=== PATIENT | female | born 1945 | race Caucasian/White ===

== ENCOUNTER 2019-10-31 13:16 | Outpatient (CLI) | payer MEDICARE, SELFPAY ==
--- NOTE | 2019-10-31 13:32 | CT_ITS ---
WS: [id number] CT ABDOMEN AND PELVIS WITH CONTRAST HISTORY: ABDOMINAL PAIN, LEFT UPPER QUADRANT. History of cholecystectomy, hysterectomy and appendecto my. TECHNIQUE: Imaging performed of the abdomen and pelvis with IV contrast. Single phase imaging of the abdomen. Coronal and sagittal reformats are submitted. All CT scans at [facility] use at least one of these dose optimization techniques: automated exposure control; mA and/or kV adjustment per patient size (includes targeted exams where dose is matched to clinical indication); or iterativ e reconstruction. IV CONTRAST: Omnipaque 300; 95 mL IV. Oral contrast: Yes. DLP: 1126.37 mGycm COMPARISON: 11/30/2015 Lower thorax: Lung bases are clear. Heart is normal size. Small hiatal hernia. Liver/biliary system: Surface of the liver is slightly nodular and irregular consistent with cirrhosi s. No mass or bile duct dilatation. There are a few scattered benign granulomata. Gallbladder: Prior cholecystectomy. Pancreas: Normal. Spleen: Normal size spleen with granulomata. Adrenal glands: Normal. Right kidney: Numerous cysts scattered throughout the kidney. The largest in the lower pole measures 9 mm. No solid mass or obstruction. Left kidney: Normal. Aorta: Mild atherosclerosis. No aneurysm. Lymphadenopathy: None. Free fluid: None. GI tract: Prior appendectomy. No GI tract obstruction. There are a few scattered diverticula througho ut the distal colon with overlapping tortuous loops. No definite acute diverticulitis. Abdominal wall: Unremarkable abdominal wall. No hernia. Pelvis: Prior hysterectomy. Normal urinary bladder. Bones: Increase in lumbar lordosis. CT/CT abdomen pelvis w con* [id number] IMPRESSION: 1. Distal colon diverticulosis without acute diverticulitis. 2. No acute abdominal or pelvic findings. 3. Prior cholecystectomy, appendectomy and hysterectomy. 4. Cirrhosis. 5. Moderate hiatal hernia.
[2019-10-31] MEDS: iohexol 300 mg/mL 50 mL Btl PO (14:23)
[2019-10-31] MEDS: iohexol 300 mg/mL 100 mL Btl IV (15:11)
== END 2019-10-31 13:17 | disposition home or self-care (01) ==
LOC: RADWPI 13:22
PROVIDERS: Family Provider Family Medicine; PCP Family Medicine; Visit Provider Family Medicine
DX: K57.30 Diverticulosis of large intestine without perforation or abscess without bleeding (principal); K74.60 Unspecified cirrhosis of liver; K44.9 Diaphragmatic hernia without obstruction or gangrene; R10.12 Left upper quadrant pain; Z90.49 Acquired absence of other specified parts of digestive tract; Z90.710 Acquired absence of both cervix and uterus
CPT/HCPCS: 74177; Q9967

== ENCOUNTER 2020-02-02 09:30 | Outpatient (CLI) | payer MEDICARE, SELFPAY ==
--- NOTE | 2020-02-02 09:35 | USCV_ITS ---
Daniela Cornelius Age: 75 Gender: F : 1945 Exam Date: 02/02/2020 10:03 Ordering Phys: Evan Santana MD ([email or web address]) Technologist: Ana Ludwig [place] [facility] [place] Indication: LV FUNCTION BP: 138 / 81 HR: 66 Rhythm: Sinus Technical Quality: Adequate MEASUREMENTS (Male / Female) Normal Values 2D ECHO LV Diastolic Diameter PLAX 2.5 cm 4.2 - 5.9 / 3.9 - 5.3 cm LV Systolic Diameter PLAX 2.0 cm LV Chamber Size 2.2 cm IVS Diastolic Thickness 1.1 cm 0.6 - 1.0 / 0.6 - 0.9 cm IVS Systolic Thickness 1.0 cm LVPW Diastolic Thickness 1.8 cm 0.6 - 1.0 / 0.6 - 0.9 cm LVPW Systolic Thickness 1.7 cm RV Chamber Size 2.4 cm LVOT Diameter 2.0 cm LV Ejection Fraction 2D Teich 45.7 % LV Ejection Fraction MOD 2C 56.3 % LV Ejection Fraction 2C AL 57.6 % LA Diameter 4.0 cm LA Width 2.8 cm LA Height 3.9 cm RA Width 2.4 cm RA Height 3.6 cm Aorta at Sinotubular Diameter 2.2 cm M-MODE LV Diastolic Diameter MM 4.8 cm 4.2 - 5.9 / 3.9 - 5.3 cm LV Systolic Diameter MM 3.4 cm LV Ejection Fraction MM Teich 57.9 % IVS Diastolic Thickness MM 0.8 cm 0.6 - 1.0 / 0.6 - 0.9 cm IVS Systolic Thickness MM 1.0 cm LVPW Diastolic Thickness MM 1.0 cm 0.6 - 1.0 / 0.6 - 0.9 cm LVPW Systolic Thickness MM 1.0 cm Aortic Annulus Diameter 2.8 cm LA Ao Ratio MM 1.5 MV E Point Septal Separation 0.4 cm DOPPLER AV Peak Velocity 108.0 cm/s LVOT Peak Velocity 97.0 cm/s AV Area Cont Eq vti 3.5 cm squared AV Area Cont Eq pk 3.0 cm squared MV Area PHT 4.5 cm squared Mitral E to A Ratio 1.0 MV E' Velocity 14.0 cm/s Mitral E to MV E' Ratio 7.4 Mitral E to LV E' Lateral Ratio 5.7 Mitral E to LV E' Septal Ratio 10.4 TR Peak Velocity 240.1 cm/s TR Peak Gradient 23.1 mmHg TR Mean Velocity 178.8 cm/s TR Mean Gradient 13.5 mmHg TR Velocity Time Integral 83.4 cm TV Peak E Velocity 70.0 cm/s Right Atrial Pressure 3.0 mmHg Pulmonary Artery Systolic Pressu 26.1 mmHg PV Peak Velocity 49.0 cm/s RV Acceleration Time 0.2 s RV Ejection Time 0.4 s RV AcT/ET 0.5 FINDINGS Left Ventricle Normal left ventricular size, systolic function and wall thickness with no regional wall motion abnormalities. Normal diastolic filling pattern. Left ventricular ejection fraction is estimated at 57 %. Right Ventricle The right ventricle is normal in size and function. Right Atrium The right atrium is normal in size. Left Atrium The left atrium is normal in size. Mitral Valve Moderately thickened mitral valve. No mitral valve stenosis. Moderate mitral annular calcification. No mitral valve regurgitation. Aortic Valve Structurally normal aortic valve without significant sclerosis or stenosis. There is no aortic regurgitation. Tricuspid Valve Structurally normal tricuspid valve without significant stenosis or regurgitation. Pulmonary artery systolic pressure is normal. Pulmonic Valve Structurally normal pulmonic valve without significant stenosis. There is no pulmonic regurgitation. Pericardium Normal pericardium without effusion. Aorta Normal ascending aorta dimension. CONCLUSIONS 1-Normal left ventricular size, systolic function and wall thickness with no regional wall motion abnormalities. Normal diastolic filling pattern. Left ventricular ejection fraction is estimated at 57 %. 2-There is no pericardial effusion. 3-No significant valve abnormalities. 4-Pulmonary artery systolic pressure is within normal limits. 5-Right atrial pressure is around 5 mm of mercury. 6-There are no prior echocardiogram studies to compare. Evan Santana MD (Electronically Signed) Final Date: 02 February 2020 18:03 S
[2020-02-02 09:41] VITALS: BMI 30.2
--- NOTE | 2020-02-02 09:43 | ECG_ITS ---
NAME OF STUDY: LEXISCAN SESTAMIBI STRESS TEST INDICATION: Chest Pain, Shortness of Breath NOTE: Please note that this is the electrocardiogram portion of the Lexiscan/Sestamibi stress test. The perfusion scan will be documented separately. DATA: Baseline heart rate was 66 beats per minute. Baseline blood pressure was 183/78 millimeters of mercury. Target heart rate was 143. Maximum heart rate achieved was 86. which was 60 % of the predicted target heart rate. Maximum blood pressure was 183/78 millimeters of mercury. The reason for ending the test was completion of the protocol. The patient did not experience any symptoms. ELECTROCARDIOGRAM: BASELINE: Sinus rhythm. Normal axis. Otherwise, no ST-T changes suggestive of ischemia noted. No arrhythmia noted. EXERCISE: After Lexiscan injection, no ST-T changes suggestive of ischemic noted. No arrhythmia noted. 1. EKG not suggestive of ischemia 2. Lexiscan injection unremarkable. 3. Perfusion scan will be documented separately. Electronically Signed On 02-03-2020 18:19:15 CDT by Evan Santana M.D. [id number]
--- NOTE | 2020-02-02 09:43 | NMCV_ITS ---
NM juwan perf SPECT r/s* [id number] Daniela Corneluis Age: 75 Gender: F : 1945 Exam Date: 02/02/2020 10:34 Ordering Phys: Evan Santana MD ([email or web address]) Technologist: LÁZARO Granger Exam Location: [facility] Indications: SHORTNESS OF BREATH STRESS TEST Please [facility] IMAGE PROTOCOL Rest/Stress 1 Lexiscan Day Radiopharmaceutical Dose (mCi) Administration Site Administered by Rest: Tc-99m 10.8 IV LÁZARO Garcia Sestamibi Stress:Tc-99m 31.8 IV LÁZARO Garcia Sestamibi Rest: 02-Feb-2020 60 Discovery 630 Stress: 02-Feb-2020 30 Discovery 630 0.4mg Lexiscan. Images obtained in supine and prone position. SPECT RESULTS Technical Quality: Excellent Raw Data Analysis: Normal Image Corrections: No attenuation or motion correction applied Summed Stress Score: 0 Summed Rest Score: 5 Summed Difference Score: 0 PERFUSION FINDINGS FUNCTIONAL RESULTS (calculated via Gated SPECT) Stress Image LV EF (%): 82 Stress EDV (mL):55 TID: 0.88 Stress ESV (mL):10 Rest Image LV EF (%): 84 FUNCTIONAL FINDINGS: There is normal left ventricular systolic function. IMPRESSIONS Mid to distal anterior and apical wall perfusion defect at rest was noted which showed improvement on the stress images suggestive of artifact. This study is negative for ischemia. EKG segment will be documented separately. Evan Santana MD (Electronically Signed) Final Date: 02 February 2020 17:15 S
--- NOTE | 2020-02-02 11:37 | SUR.PREOP ---
Patient reports no pain or discomfort prior to the start of the procedure.
[2020-02-02] MEDS: regadenoson 0.4 Mg/5 ml Syringe IVP (11:49)
[2020-02-02 12:07] VITALS: BP 144/69; PULSE 78
== END 2020-02-02 09:31 | disposition home or self-care (01) ==
LOC: CDL 09:32
PROVIDERS: Family Provider Family Medicine; PCP Family Medicine; Visit Provider Internal Medicine Cardiovascular Disease
DX: R06.02 Shortness of breath (principal); R07.9 Chest pain, unspecified
CPT/HCPCS: 78452; 93017; 93306; A9500; J2785

== ENCOUNTER 2020-10-04 10:57 | Outpatient (CLI) | payer MEDICARE, SELFPAY ==
--- NOTE | 2020-10-04 11:11 | XR_ITS ---
WS: [id number] Right shoulder, 2 views, 10/04/2020 Clinical Data: SHOULDER PAIN, RIGHT Comparison: None. Findings: No fractures or dislocations are seen. The AC joint is normal. The adjacent right clavicle, right sca pula and ribs are normal. The soft tissues are unremarkable. There is osteoarthritic narrowing of the right shoulder joint with sclerosis of the glenoid and adjac ent humeral head. There is a spur of the right lesser tuberosity. XR/XR shoulder RT min 2V* [id number] Impression: Osteoarthritis of the right shoulder joint.
== END 2020-10-04 10:58 | disposition home or self-care (01) ==
LOC: RAD 11:02
PROVIDERS: PCP Family Medicine; Visit Provider Family Medicine
DX: M19.011 Primary osteoarthritis, right shoulder (principal)
CPT/HCPCS: 73030

== ENCOUNTER 2020-10-21 14:20 | Outpatient (CLI) | payer MEDICARE, SELFPAY ==
--- NOTE | 2020-10-21 14:27 | MR_ITS ---
WS: [id number] MRA HEAD TECHNIQUE: Axial 3-D TOF images obtained with axial images and axial, sagittal, and coronal 2-D refor matted images. CLINICAL INFORMATION: TIA COMPARISON: None. FINDINGS: Distal vertebral arteries are patent. Basilar artery is patent. Normal vascularity to the INFORMATION TECHNOLOGY ARCHITECT territo ry bilaterally. Both ICAs are patent at the skull base. Normal vascularity to the SARY and MCA territories bilaterally . No evidence of high-grade proximal stenosis or aneurysm. MR/MR angio head wo con [id number] IMPRESSION: Unremarkable intracranial MRA. No flow-limiting stenosis.
--- NOTE | 2020-10-21 14:27 | MR_ITS ---
WS: [id number] MRI HEAD WITHOUT CONTRAST TECHNIQUE: Sagittal T1, T2 axial, T2 axial FLAIR, axial and coronal T1 images, axial susceptibility w eighted imaging, axial diffusion weighted images, and coronal T2 images were obtained. CLINICAL INFORMATION: TIA COMPARISON: None. FINDINGS: No evidence of restricted diffusion to suggest acute ischemia. Ventricular system and basal cisterns are patent. No suspicious intracranial signal abnormalities. Minimal small vessel changes. Moderate p arenchymal volume loss. More prominent in the parietal lobes. No hemosiderin on the susceptibility we ighted images. Normal posterior fossa. Normal vascular flow voids at the skull base. No extra axial fluid collection s. Paranasal sinuses and mastoid air cells are well aerated. Normal optic chiasm and pituitary infundibulum. Normal cavernous sinuses and Meckel's cave. Mild symm etric atrophy involving the temporal lobes and hippocampal formations. A few left intraparotid lymph nodes. MR/MR head wo con* [id number] IMPRESSION: 1. No evidence of restricted diffusion to suggest acute ischemia. 2. Minimal small vessel changes. Moderate parenchymal volume loss more promine nt in the parietal lobes. 3. Mild to moderate symmetric atrophy involving the temporal lobes and hippoca mpal formations. 4. No hemosiderin on the susceptibility weighted images. 5. No other significant findings.
== END 2020-10-21 14:21 | disposition home or self-care (01) ==
LOC: RADSHAW 14:24
PROVIDERS: PCP Family Medicine; Visit Provider Family Medicine
DX: G45.9 Transient cerebral ischemic attack, unspecified (principal); G31.9 Degenerative disease of nervous system, unspecified
CPT/HCPCS: 70544; 70551

== ENCOUNTER 2020-11-01 12:42 | Outpatient (CLI) | payer MEDICARE, SELFPAY ==
--- NOTE | 2020-11-01 12:49 | USCV_ITS ---
Daniela Cornelius Age: 75 Gender: F : 1945 Exam Date: 11/01/2020 12:56 Ordering Phys: Omega Woods MD Technologist: Bethany Flynn [place]am [place] [facility] [place] Indication: TIA Risk Factors: Previous Vascular Surgery: Right Brachial BP: / Left Brachial BP: / Right Left Velocity (cm/s) Spectral Plaque Velocity (cm/s) Spectral Plaque Syst/Diast Broadening Syst/Diast Broadening 116.90/13.20 Prox CCA 89.10 / 16.90 81.20/ 14.20 Mid CCA 71.50 / 13.20 73.50/ 12.00 Distal CCA 74.60 / 14.00 64.90/ 11.50 Prox ICA 93.10 / 22.20 75.40/ 13.60 Mid ICA 70.60 / 23.80 67.90/ 19.00 Distal ICA 74.30 / 24.80 84.60 ECA 69.40 0.64 ICA/CCA 1.05 Antegrade Vertebral Antegrade 29.60/ 9.90 cm/s 47.40/ 9.30 cm/s Tri Subclavian Tri 180.2 98.60 0 FINDINGS Comparison: none available. No significant elevation of systolic or diastolic velocities. Waveforms are normal. Mild atherosclerotic plaque at the bifurcations. CONCLUSIONS Bilateral ICA stenosis less than 50%. Mild carotid atherosclerosis. Dr. Jeaneth Carmichael DO (Electronically Signed) Final Date: 01 November 2020 13:52 S
== END 2020-11-01 12:43 | disposition home or self-care (01) ==
LOC: RAD 12:45
PROVIDERS: PCP Family Medicine; Visit Provider Family Medicine
DX: G45.9 Transient cerebral ischemic attack, unspecified (principal)
CPT/HCPCS: 93880

== ENCOUNTER 2021-04-17 13:44 | Outpatient (CLI) | payer MEDICARE, SELFPAY ==
--- NOTE | 2021-04-17 14:00 | XR_ITS ---
WS: [id number] Left knee, 3 views, 04/17/2021 Clinical Data: LEFT KNEE PAIN Comparison: None. Findings: No fractures or dislocations are seen. There is medial joint narrowing and spurring of the medial tib ial plateau and medial femoral condyle. There is minimal spurring of the lateral tibial plateau. Ther e is minimal spurring of the posterior patella.. The patella is intact. The soft tissues are unremark able. XR/XR knee LT 3V* [id number] Impression: Minimal osteoarthritis of the left knee involving all 3 joint compartments Kellgren-Dash Classification: grade 2 (minimal): definite osteophytes and p ossible joint space narrowing
--- NOTE | 2021-04-17 14:14 | XR_ITS ---
WS: [id number] Right knee, 3 views, 04/17/2021 Clinical Data: RIGHT KNEE PAIN Comparison: None. Findings: There is medial joint compartment narrowing with spurring of the medial femoral condyle. There are sp urs of the lateral femoral condyle and lateral tibial plateau. The posterior right patella shows spur ring. There are no fractures or dislocations. The soft tissues are normal. XR/XR knee RT 3V* [id number] Impression: Minimal tricompartment osteoarthritic narrowing of the right knee. Kellgren-Dash Classification: grade 2 (minimal): definite osteophytes and p ossible joint space narrowing
== END 2021-04-17 13:45 | disposition home or self-care (01) ==
PROVIDERS: PCP Family Medicine; Visit Provider Family Medicine
DX: M25.562 Pain in left knee (principal)
CPT/HCPCS: 73562

== ENCOUNTER → 2022-03-05 12:01 | Outpatient (BNVA) | payer MEDICARE, SELFPAY | PROVIDERS: PCP Family Medicine; Visit Provider Internal Medicine Cardiovascular Disease | DX: I25.10 Atherosclerotic heart disease of native coronary artery without angina pectoris (principal); R06.02 Shortness of breath; R07.9 Chest pain, unspecified; I10 Essential (primary) hypertension | CPT/HCPCS: 99213; 99214 ==

== ENCOUNTER → 2022-03-24 10:37 | Outpatient (BNVA) | payer MEDICARE, SELFPAY | PROVIDERS: PCP Family Medicine; Visit Provider Family Medicine | DX: I10 Essential (primary) hypertension (principal); I25.10 Atherosclerotic heart disease of native coronary artery without angina pectoris; R06.02 Shortness of breath; R07.9 Chest pain, unspecified | CPT/HCPCS: 80053; 80061; 83036; 84439; 84443; 85025 ==

== ENCOUNTER 2022-03-25 13:56 | Outpatient (CLI) | payer MEDICARE, SELFPAY ==
--- NOTE | 2022-03-25 14:05 | MM_ITS ---
WS: [id number] BILATERAL 3D TOMOSYNTHESIS DIGITAL SCREENING MAMMOGRAPHY WITH CAD CLINICAL INFORMATION: SCREENING HISTORY: Screening mammogram. No current complaints. COMPARISON: February 20, 2021 TECHNIQUE: Bilateral CC and MLO views. FINDINGS: Scattered fibroglandular densities bilaterally. Incidental punctate and lucent centered calcification s. Vascular calcifications. Biopsy clip RIGHT breast. No suspicious focal mass, asymmetry, calcificat ions, or architectural distortion. No evidence of malignancy. MM/[place] [id number] IMPRESSION: BI-RADS: 2-Benign FOLLOW UP: 1 Year Follow-up Recommend return to annual screening mammography.
== END 2022-03-25 13:57 | disposition home or self-care (01) ==
PROVIDERS: PCP Family Medicine; Visit Provider Family Medicine
DX: Z12.31 Encounter for screening mammogram for malignant neoplasm of breast (principal)
CPT/HCPCS: 77063; 77067

== ENCOUNTER 2022-04-14 13:04 | Outpatient (RCR) | payer MEDICARE, SELFPAY | END 2022-04-29 23:59 | disposition home or self-care (01) | LOC: SPT 13:04 | PROVIDERS: PCP Family Medicine; Referring Provider Family Medicine; Visit Provider Family Medicine | DX: M25.511 Pain in right shoulder (principal) | CPT/HCPCS: 95992; 97162 ==

== ENCOUNTER 2022-05-14 06:00 | Outpatient (RCR) | payer MEDICARE, SELFPAY | END 2022-05-29 23:59 | disposition home or self-care (01) | LOC: SPT 06:00 | PROVIDERS: PCP Family Medicine; Visit Provider Family Medicine | DX: M25.511 Pain in right shoulder (principal) | CPT/HCPCS: 97110; 97140; 97161 ==

== ENCOUNTER 2022-05-30 06:00 | Outpatient (RCR) | payer MEDICARE, SELFPAY | END 2022-06-29 23:59 | disposition home or self-care (01) | LOC: SPT 06:00 | PROVIDERS: PCP Family Medicine; Visit Provider Family Medicine | DX: M25.511 Pain in right shoulder (principal) | CPT/HCPCS: 97110; 97140 ==

== ENCOUNTER 2022-06-30 06:00 | Outpatient (RCR) | payer MEDICARE, SELFPAY | END 2022-07-29 23:59 | disposition home or self-care (01) | LOC: SPT 06:00 | PROVIDERS: PCP Family Medicine; Visit Provider Family Medicine | DX: M25.511 Pain in right shoulder (principal) | CPT/HCPCS: 97110 ==

== ENCOUNTER 2022-07-22 10:21 | Inpatient (IN) | payer MEDICARE, SELFPAY ==
[2022-07-22] VITALS (28 sets, daily range): BP systolic 91–151; BP diastolic 49–84; PULSE 77–107; RESP 15–32; TEMP 36.4–37.2; O2SAT 91–99; BMI 28.3
--- NOTE | 2022-07-22 10:40 | ECG_ITS ---
[facility] Test Date: 2022-07-22 Pat Name: Daniela Cornelius Department: Room: Gender: Female Convention Services Manager: : 1945 Requested By: Arun Manuel Order Number: [id number] Patricia MD: Bertrand Bennett M.D. Measurements Intervals [place] Rate: 77 P: 54 [place]: 172 QRS: -12 QRSD: 97 T: 38 QT: 386 QTc: 439 Interpretive Statements SINUS RHYTHM SEPTAL MYOCARDIAL INFARCTION , PROBABLY OLD [40+ ms Q WAVE IN V1/V2] Compared to ECG 11/08/2015 18:01:13 Myocardial infarct finding now present Electronically Signed On 07-23-2022 12:32:43 DIAMOND GRINDER by Bertrand Bennett M.D. [id number]
--- NOTE | 2022-07-22 10:44 | XRR_ITS ---
PROCEDURE INFORMATION: Exam: XR Chest Exam date and time: 07/22/2022 11:54 AM Age: 77 years old Clinical indication: Cough and dyspnea; Patient HX: Fainting episodes; Additional info: Dyspnea/cough TECHNIQUE: Imaging protocol: Radiologic exam of the chest. Views: 1 view. COMPARISON: CR XR chest 1V [id number] 11/08/2015 6:48 PM FINDINGS: Lungs: Unremarkable. No consolidation. Pleural spaces: Unremarkable. No pleural effusion. No pneumothorax. Heart/Mediastinum: Unremarkable. No cardiomegaly. Bones/joints: Unremarkable. XR/XR chest 1V portable [id number] IMPRESSION: No acute findings.
[2022-07-22 11:03] LABS: Hematocrit 37.4 % (37.0-47.0); Hemoglobin 12.9 g/dL (11.5-15.3); Mean Corpuscular HGB Conc 34.5 g/dL (30.0-36.0); Mean Corpuscular Hemoglobin 31.9 pg (28.0-34.0); Mean Corpuscular Volume 92.6 fl (81-99); Mean Platelet Volume 10.6 fL (7.4-10.4); Platelet Count 127 10^3/cmm (130-400); Red Blood Count 4.04 10^6/uL (4.1-5.3); Red Cell Distribution Width 13.9 % (12.1-15.1)
--- NOTE | 2022-07-22 11:12 | W.ED.GENADLT ---
HPI - General Adult General: Chief complaint: General Medical Stated complaint: low BP Time Seen by Provider: 07/22/22 10:44 Source: patient Mode of arrival: ambulatory History of Present Illness: 77-year-old female presents emergency room patient relates having a near syncopal episode yesterday she got very lethargic and weak she took an isosorbide mononitrate that seem to have resolved that she never really had any chest pain she has had some shortness of breath she also complaining of some right hip pain but has been chronic she has not fallen recently and she has been ambulating on it. She denies any fever sweats or chills her blood pressure was low when she went to her doctor's office today and she was directed to the emergency room. [facility] ED PFSH: Medical History (Updated 07/22/22 @ 14:11 by Omega Chao MD) CAD (coronary artery disease) Chest pain HTN (hypertension) Hypothyroid Shortness of breath Surgical History History of bladder repair surgery Bladder repair in 2000, sling in 2002 History of cholecystectomy History of partial hysterectomy Vaginal Hx of dilation and curettage Hx of eye surgery stent placement Family History Mother Pleural effusion Family/Other Heart problem Other Hx of CABG Social History Smoking and tobacco status: never smoked Alcohol intake: never Substance/Drug Use: never Course Vital Signs: Vital signs: Vital Signs Temperature 97.6 F 07/22/22 10:25 Pulse Rate 106 H 07/22/22 13:00 Respiratory Rate 27 H 07/22/22 13:00 Blood Pressure 123/72 07/22/22 14:00 Pulse Oximetry 91 07/22/22 14:00 Oxygen Delivery Me thod 07/22/22 11:30 MDM - General Adult Medical Decision Making OfSniffing leukocytosis with no obvious sign of infection urine shows mild cystitis not consistent with the leukocytosis. Does have a large left shift on differential. She also has hyponatremia mild acute kidney injury discussed with hospitalist will admit orders been written. Medical Records I reviewed the patient's medical records. Lab Data I reviewed the patient's lab results. 07/22/22 10:45 07/22/22 10:55 Radiology Impressions Chest X-Ray 07/22/22 10:44 IMPRESSION: No acute findings. Laboratory Results WBC 34.2 10^3/uL (4.0-10.0) H* 07/22/22 10:45 RBC 4.04 10^6/uL (4.1-5.3) L 07/22/22 10:45 Hgb 12.9 g/dL (11.5-15.3) 07/22/22 10:45 Hct 37.4 % (37.0-47.0) 07/22/22 10:45 MCV 92.6 fl (81-99) 07/22/22 10:45 MCH 31.9 pg (28.0-34.0) 07/22/22 10:45 MCHC 34.5 g/dL (30.0-36.0) 07/22/22 10:45 RDW 13.9 % (12.1-15.1) 07/22/22 10:45 Plt Count 127 10^3/cmm (130-400) L 07/22/22 10:45 MPV 10.6 fL (7.4-10.4) H 07/22/22 10:45 Total Counted 100 (0-100) 07/22/22 10:45 Atypical Lymphs % 0.0 % (0-5) 07/22/22 10:45 Absolute Neutrophils 29.8 10^3/cmm (1.4-6.5) H 07/22/22 10:45 Segmented Neutrophils 80 % 07/22/22 10:45 Abs Segm Neuts (Man) 27.4 10/cmm (1.6-7.1) H 07/22/22 10:45 Band Neutrophils 7.0 % 07/22/22 10:45 Abs Band Neuts (Man) 2.4 10^3/cmm (0.0-1.2) H 07/22/22 10:45 Absolute Lymphocytes 3.8 10^3/cmm (1.2-3.4) H 07/22/22 10:45 Lymphocytes (Manual) 11 % 07/22/22 10:45 Monocytes (Manual) 1.0 % 07/22/22 10:45 Absolute Monocytes 0.3 10^3/cmm (0.1-0.6) 07/22/22 10:45 Eosinophils (Manual) 1 % 07/22/22 10:45 Absolute Eosinophils 0.3 10^3/cmm (0.0-0.7) 07/22/22 10:45 Basophils (Manual) 0.0 % 07/22/22 10:45 Absolute Basophils 0.0 10^3/cmm (0.0-0.2) 07/22/22 10:45 Platelet Estimate Normal (Normal) 07/22/22 10:45 Giant Platelets Trace 07/22/22 10:45 Polychromasia 1+ H 07/22/22 10:45 Hypochromasia 1+ H 07/22/22 10:45 Poikilocytosis 1+ H 07/22/22 10:45 Anisocytosis 1+ H 07/22/22 10:45 Microcytosis 1+ H 07/22/22 10:45 Macrocytosis 1+ H 07/22/22 10:45 Spherocytes 1+ 07/22/22 10:45 Sodium 123 mmol/L (136-145) L 07/22/22 10:55 Potassium 3.9 mmol/L (3.5-5.1) 07/22/22 10:55 Chloride 88 mmol/L (98-107) L 07/22/22 10:55 Carbon Dioxide 21 mmol/L (22-29) L 07/22/22 10:55 Anion Gap 17.9 (5-19) 07/22/22 10:55 BUN 36 mg/dL (8-23) H 07/22/22 10:55 Creatinine 2.2 mg/dL (0.5-0.9) H 07/22/22 10:55 GFR Calculation Not Reportable 07/22/22 10:55 Glucose 100 mg/dL (65-115) 07/22/22 10:55 Calculated Osmolality 264 mOsm/kg (285-295) L 07/22/22 10:55 Lactic Acid 3.6 mmol/L (0.5-2.2) H 07/22/22 12:06 Calcium 9.2 mg/dL (8.5-10.5) 07/22/22 10:55 Total Bilirubin 0.8 mg/dL (0.15-1.2) 07/22/22 10:55 AST 40 U/L (0-32) H 07/22/22 10:55 ALT 34 U/L (0-33) H 07/22/22 10:55 Alkaline Phosphatase 85 U/L (35-105) 07/22/22 10:55 Troponin T Baseline 23 ng/L (0-10) H 07/22/22 10:55 Troponin T 120 Minute 18.15 ng/L (0-10) H 07/22/22 12:55 Delta Troponin T -4.85 ABS# (0-10) L 07/22/22 12:55 Total Protein 6.9 g/dL (6.6-8.7) 07/22/22 10:55 Albumin 3.6 g/dL (3.5-5.2) 07/22/22 10:55 Globulin 3.3 g/dL (1.3-4.6) 07/22/22 10:55 Urine Color Yellow (Yellow) 07/22/22 13:13 Urine Appearance Clear (CLEAR) 07/22/22 13:13 Urine pH 5 (5-7) 07/22/22 13:13 Ur Specific [place] 1.010 (1.005-1.030) 07/22/22 13:13 Urine Protein Trace (Negative) 07/22/22 13:13 Urine Glucose (UA) Norm (Normal) 07/22/22 13:13 Urine Ketones Negative (Negative) 07/22/22 13:13 Urine Blood 2+ (Negative) H 07/22/22 13:13 Urine Nitrate Positive (Negative) H 07/22/22 13:13 Urine Bilirubin Neg (Negative) 07/22/22 13:13 Urine Urobilinogen Neg mg/dL (Negative) 07/22/22 13:13 Ur Leukocyte Esterase 2+ (Negative) H 07/22/22 13:13 Urine RBC 0-4 /hpf (0-2) H 07/22/22 13:13 Urine WBC 5-10 /hpf (0-5) H 07/22/22 13:13 Ur Squamous Epith Cells 0-4 /hpf (0-5) H 07/22/22 13:13 Amorphous Sediment Not Reportable 07/22/22 13:13 Urine Bacteria 4+ /hpf (NONE) H 07/22/22 13:13 Discharge Plan Discharge Patient Disposition: Admitted As Inpatient Clinical Impression: Leukocytosis, Acute kidney injury, Cystitis Condition: Stable Prescriptions: No Action cholecalciferol (vitamin D3) 125 mcg (5,000 unit) capsule 5,000 unit PO DAILY vitamin B complex [B Complex-Vitamin B12] Tablet 1 tab PO DAILY magnesium oxide 500 mg capsule 500 mg PO DAILY dorzolamide 2 % drops 1 drp ophthalmic (eye) TID latanoprost 0.005 % drops 1 drp ophthalmic (eye) DAILY amlodipine 2.5 mg tablet 2.5 mg PO DAILY Qty: 30 1RF metoprolol tartrate 50 mg tablet 50 mg PO BID losartan-hydrochlorothiazide 100-25 mg tablet 1 tab PO DAILY Qty: 30 6RF nitroglycerin [Nitrostat] 0.4 mg tablet, sublingual 0.4 mg SUBLINGUAL Q5M PRN (Reason: chest pain) Qty: 1 3RF Rx Instructions: until response; do not exceed 3 doses per episode isosorbide mononitrate 30 mg tablet extended release 24 hr 30 mg PO BID Qty: 180 3RF levothyroxine 50 mcg tablet See Rx Instructions .ROUTE .COMPLEX Qty: 90 3RF Dose Instruction: TAKE 1 TABLET BY MOUTH IN THE MORNING 1/2 HOUR BEFORE BREAKFAST TAKE WITH WATER ONLY. Rx Instructions: TAKE 1 TABLET BY MOUTH IN THE MORNING 1/2 HOUR BEFORE BREAKFAST TAKE WITH WATER ONLY. omeprazole 40 mg capsule,delayed release(DR/EC) 40 mg PO DAILY PRN (Reason: heartburn) Qty: 90 3RF celecoxib 100 mg capsule 100 mg PO BID Qty: 180 3RF ropinirole 0.25 mg tablet 0.25 mg PO DAILY Advil 200 mg Tablet 400 mg PO Q6H PRN (Reason: Pain) Tylenol 325 mg Capsule 650 mg PO QID PRN (Reason: Pain) Referrals: Omega Woods MD [Primary Care Provider] - Coding Level of Care Code ED Medical Staff Services Coordinator for Marcia Griffin
[2022-07-22 11:23] LABS: Slide Review Slide Review Perform
[2022-07-22 11:25] LABS: Total Cells Counted 100 (0-100)
[2022-07-22 11:26] LABS: Absolute Eosinophils 0.3 10^3/cmm (0.0-0.7); Absolute Segmented Neutrophil 27.4 10/cmm (1.6-7.1); Band Neutrophils Absolute 2.4 10^3/cmm (0.0-1.2); Eosinophils 1 %; Lymphocytes 11 %; Lymphocytes Absolute 3.8 10^3/cmm (1.2-3.4); Monocytes Absolute 0.3 10^3/cmm (0.1-0.6); Segmented Neutrophils 80 %
[2022-07-22 11:27] LABS: Absolute Neutrophil 29.8 10^3/cmm (1.4-6.5); Hypochromasia 1+; Platelet Estimate Normal (Normal)
[2022-07-22 11:28] LABS: Anisocytosis 1+; Giant Platelets Trace; Macrocytosis 1+; Microcytosis 1+; Poikilocytosis 1+; Polychromasia 1+; Spherocytes 1+
[2022-07-22 11:31] LABS: White Blood Count 34.2 10^3/uL (4.0-10.0)
[2022-07-22 11:35] LABS: Alanine Aminotransferase 34 U/L (0-33); Albumin Level 3.6 g/dL (3.5-5.2); Alkaline Phosphatase 85 U/L (35-105); Anion Gap 17.9 (5-19); Aspartate Amino Transferase 40 U/L (0-32); Blood Urea Nitrogen 36 mg/dL (8-23); Calcium 9.2 mg/dL (8.5-10.5); Carbon Dioxide 21 mmol/L (22-29); Chloride 88 mmol/L (98-107); Creatinine Clr Calc Pharmacy 21.2914; Globulin 3.3 g/dL (1.3-4.6); Glucose 100 mg/dL (65-115); Osmolality Calculated 264 mOsm/kg (285-295); Potassium 3.9 mmol/L (3.5-5.1); Sodium 123 mmol/L (136-145); Total Bilirubin 0.8 mg/dL (0.15-1.2); Total Protein 6.9 g/dL (6.6-8.7)
[2022-07-22] MEDS: sodium chloride 0.9% 1,000 ML 999 ML IV (11:35)
[2022-07-22 11:39] LABS: Troponin(5th) Baseline 23 ng/L (0-10)
[2022-07-22 12:35] LABS: Lactic Sepsis W/Reflex 3.6 mmol/L (0.5-2.2)
[2022-07-22 13:22] LABS: Add Urine Microscopic? YES; Bilirubin Urine Neg (Negative); Blood Urine 2+ (Negative); Glucose Urine UA Norm (Normal); Ketones Urine Negative (Negative); Leukocyte Esterase Urine 2+ (Negative); Nitrate Urine Positive (Negative); Protein Urine Trace (Negative); Urine Appearance Clear (CLEAR); Urine Color Yellow (Yellow); Urobilinogen Urine Neg (Negative); pH Urine 5 (5-7)
[2022-07-22 13:28] LABS: Add Urine Culture? Yes; Bacteria Urine 4+ /hpf; RBC Urine 0-4 /hpf (0-2); Squamous Epithelial Cell Urine 0-4 /hpf (0-5)
[2022-07-22] MEDS: ropinirole 1 mg Tablet PO (13:31)
--- NOTE | 2022-07-22 13:47 | P.HP_ITS ---
Providers/Chief Complaint Admitting Physician: Omega Chao MD Primary Care Provider: Omega Woods MD Chief Complaint: low BP History of Present Illness Daniela Cornelius is a 77 year old female with a past medical history significant for coronary artery disease with history of CABG, hypertension and hypothyroidism who presents with hypotension. Patient reports she was in her usual state of health until about a week ago when she developed left-sided hip pain. She describes the pain as severe at times. Up to 10 out of 10 in the last week. She says she was evaluated about a week ago and told to take ibuprofen and Tylenol which she has been doing. Pain injection including a st eroid injection at that time. She states that she was also treated with He states for about a day to improve but since then is gotten progressively worse. She endorses symptoms of mental fog and confusion. She states last night she had to sit down and felt lightheaded. She reports this happened again this morning and her vision went black. She denies loss of consciousness. She denies any head trauma. She endorses associated symptoms of generalized malaise and fatigue. She also endorses transient abdominal discomfort. Endorses an episode of shortness of breath releived by Imdur. She was evaluated by her primary care physician today. She was told to go to the emergency room due to hypotension. In the ED she was found to be hypotensive which improved with IV fluids. Labs are most notable for significant leukocytosis to 34.2, thrombocytopenia, hyponatremia, urinary tract infection, metabolic acidosis, lactic acidosis, transaminitis and acute kidney injury. Patient denies any fevers, chills, or night sweats. Review of Systems Narrative: A complete review of systems was obtained and is negative except as stated in HPI. Medications/Allergies Home Medications Medication Instructions Recorded Confirmed Last Taken Type cholecalciferol (vitamin D3) 125 5,000 unit PO DAILY 12/04/19 07/22/22 Unknown History mcg (5,000 unit) capsule nitroglycerin 0.4 mg sublingual 0.4 mg sublingual Q5M PRN chest 12/06/19 07/22/22 Unknown Rx tablet (Nitrostat) pain #1 pkg dorzolamide 2 % eye drops 1 drp ophthalmic (eye) TID 05/29/21 07/22/22 07/22/22 History latanoprost 0.005 % eye drops 1 drp ophthalmic (eye) DAILY 05/29/21 07/22/22 Unknown History magnesium oxide 500 mg capsule 500 mg PO DAILY 05/29/21 07/22/22 Unknown History vitamin B complex (B 1 tab PO DAILY 05/29/21 07/22/22 Unknown History Complex-Vitamin B12 tablet) isosorbide mononitrate 30 mg 30 mg PO BID #180 tabs 12/01/21 07/22/22 07/22/22 Rx tablet,extended release 24 hr amlodipine 2.5 mg tablet 2.5 mg PO DAILY #30 tabs 03/31/22 07/22/22 07/22/22 Rx metoprolol tartrate 50 mg tablet 50 mg PO BID 03/31/22 07/22/22 07/22/22 History losartan 100 1 tab PO DAILY #30 tabs 04/27/22 07/22/22 Unknown Rx mg-hydrochlorothiazide 25 mg tablet levothyroxine 50 mcg tablet See Rx Instructions .Route 06/22/22 07/22/22 Unknown Rx .COMPLEX #90 tabs omeprazole 40 mg capsule,delayed 40 mg PO DAILY PRN heartburn #90 07/02/22 07/22/22 Unknown Rx release caps celecoxib 100 mg capsule 100 mg PO BID #180 caps 07/07/22 07/22/22 Unknown Rx acetaminophen 325 mg capsule 650 mg PO QID PRN Pain 07/22/22 07/22/22 Unknown History (Tylenol) ibuprofen 200 mg tablet (Advil) 400 mg PO Q6H PRN Pain 07/22/22 07/22/22 07/22/22 History ropinirole 0.25 mg tablet 0.25 mg PO DAILY 07/22/22 07/22/22 Unknown History Allergies Allergy/AdvReac Type Severity Reaction Status Date / Time Penicillins Allergy Unknown Unknown Verified 07/22/22 11:36 PFSH Acute PFSH: Medical History (Updated 07/22/22 @ 14:11 by Omega Chao MD) CAD (coronary artery disease) Chest pain HTN (hypertension) Hypothyroid Shortness of breath Surgical History History of bladder repair surgery Bladder repair in 2000, sling in 2002 History of cholecystectomy History of partial hysterectomy Vaginal Hx of dilation and curettage Hx of eye surgery stent placement Family History Mother Pleural effusion Family/Other Heart problem Other Hx of CABG Social History Smoking and tobacco status: never smoked Alcohol intake: never Substance/Drug Use: never Vitals/I&O/Wt Last Vital Signs Temp 97.6 F 07/22/22 10:25 Pulse 106 H 07/22/22 13:00 Resp 27 H 07/22/22 13:00 BP 101/49 07/22/22 12:00 Pulse Ox 99 07/22/22 13:00 O2 Del Method 07/22/22 11:30 07/21/22 07/22/22 07/22/22 22:59 06:59 14:59 Intake Total 1000 / 1000 Balance 1000 / 1000 Weight last 48 hrs Weight 77.111 kg Physical Exam Narrative: General: Patient is awake. Appears ill. Head: Normocephalic. Atraumatic. EOM intact. Neck: No JVD. Cardiovascular: Tachycardic. No gallops. No murmurs. Delayed cap refill. Poor peripheral perfusion. Lungs: Breath sounds are diminished bilateral bases, no use of accessory muscles, no crackles or wheezes. Skin: No jaundice. No rashes. Abdomen: Normal bowel sounds, abdomen soft and nontender. Genito Urinary: Genital exam not performed since complaints not related. Rectal: Rectal exam not performed since no symptoms indicated blood loss. Extremities: No cyanosis or clubbing. Musculoskeletal: Left hip is painful on active range of motion, but minimal pain on passive range of motion. Neurological: Moves all 4 extremities. No myoclonus. Verbal sponsors are slowed. Clouded train of thought. Data 07/22/22 10:45 07/22/22 10:55 Micro: Microbiology 07/22/22 12:02 Blood Culture - Preliminary Blood SPECIMEN COLLECTED 07/22/22 12:06 Blood Culture - Preliminary Blood SPECIMEN COLLECTED A&P Assessment and plan (1) Severe sepsis: Lactic acidosis SIRS: Tachycardia, leukocytosis, tachypnea, hypotension Source: UTI, possible pyelonephritis End organ damage: UTI Blood cultures x2 MRSA swab Start meropenem Start vancomycin Start IV fluid resuscitation CT chest abdomen and pelvis, no IV contrast due to acute kidney injury Trend lactate High risk for decompensation Procalcitonin and CRP for risk stratification Continuous telemetry monitoring (2) Left hip pain: Source unclear Denies trauma Obtain CT imaging Avoid NSAIDs due to KATTY Multimodal pain control (3) Transaminitis: Secondary to sepsis Continue to monitor liver function enzymes (4) Thrombocytopenia: Suspected secondary to sepsis Continue to monitor (5) Acute kidney injury: CT imaging IV fluid resuscitation to Strict I's and O's Daily weights Avoid nephrotoxins Renally dose medications (6) Hyponatremia: Hypovolemic hyponatremia IV fluid resuscitation Trend sodium (7) Debility: Secondary sepsis Treat underlying infection PT when appropriate (8) CAD (coronary artery disease): Hold Imdur due to hypotension Qualifiers: Coronary Disease-Associated Artery/Lesion type: bypass graft, autologous artery Associated angina: without angina Qualified Code(s): I25.810 - Atherosclerosis of coronary artery bypass graft(s) without angina pectoris (9) Hypothyroid: Continue Synthroid (10) HTN (hypertension): Hold home antihypertensives to hypotension Monitor blood pressure closely Qualifiers: Hypertension type: essential hypertension Qualified Code(s): I10 - Essential (primary) hypertension Plan DVT ppx: Heparin Code status: Full Code Attestations Medical Necessity Statement*: Patient presents with severe sepsis requiring admission to the hospital for cultures, CT imaging, broad-spectrum antibiotics, IV fluids, and supportive care Coding Level of Care Code Acute Quality Review Trainer for [facility] Diagnoses Severe sepsis A41.9; R65.20 Left hip pain M25.552 Transaminitis R74.01 Thrombocytopenia D69.6 Acute kidney injury N17.9 Hyponatremia E87.1 Debility R53.81 CAD (coronary artery disease) I25.810 Coronary Disease-Associated Artery/Lesion type: bypass graft, autologous artery Associated angina: without angina Hypothyroid E03.9 HTN (hypertension) I10 Hypertension type: essential hypertension
[2022-07-22 13:56] LABS: Troponin 5 2HR 18.15 ng/L (0-10)
[2022-07-22 13:58] LABS: Troponin 5 2HR Delta -4.85 ABS# (0-10)
[2022-07-22 13:58] LABS: Reflex Lactate Order REFLEX LACTIC ORDERD
[2022-07-22] MEDS: levofloxacin-dextrose 5 % 750 MG/150 ML PREMIX 100 MG IV (14:20)
--- NOTE | 2022-07-22 14:26 | CTR_ITS ---
PROCEDURE INFORMATION: Exam: CT Left Lower Extremity Without Contrast, Hip Exam date and time: 07/22/2022 2:46 PM Age: 77 years old Clinical indication: Pain; Hip; Left; Additional info: Severe left hip pain a/w sepsis TECHNIQUE: Imaging protocol: CT of the Left lower extremity without contrast was performed. Exam focused on the hip. Radiation optimization: All CT scans at this facility use at least one of these dose optimization techniques: automated exposure control; mA and/or kV adjustment per patient size (includes targeted exams where dose is matched to clinical indication); or iterative reconstruction. COMPARISON: CT abdomen pelvis w con* [id number] 10/31/2019 3:10 PM RADIATION DOSE METRICS: Total DLP (mGy-cm): 322.3 FINDINGS: Bones/joints: Normal. No acute fracture or dislocation. Soft tissues: Normal. CT/CT hip LT wo con* [id number] IMPRESSION: Unremarkable CT.
--- NOTE | 2022-07-22 14:26 | CTR_ITS ---
PROCEDURE INFORMATION: Exam: CT Chest Without Contrast; Diagnostic Exam date and time: 07/22/2022 2:54 PM Age: 77 years old Clinical indication: Other: Severe sepsis; Additional info: Severe sepsis, source unknown TECHNIQUE: Imaging protocol: Diagnostic computed tomography of the chest without contrast. Radiation optimization: All CT scans at this facility use at least one of these dose optimization techniques: automated exposure control; mA and/or kV adjustment per patient size (includes targeted exams where dose is matched to clinical indication); or iterative reconstruction. COMPARISON: CR XR chest 1V portable [id number] 07/22/2022 11:54 AM RADIATION DOSE METRICS: Total DLP (mGy-cm): 597 FINDINGS: Lungs: Unremarkable. No consolidation. No masses. Pleural spaces: Unremarkable. No pneumothorax. No pleural effusion. Heart: Unremarkable. No cardiomegaly. No pericardial effusion. Lymph nodes: Unremarkable. No enlarged lymph nodes calcified granulomas are present in the subcarinal region and in the bilateral hilar regions.. Vasculature: Unremarkable. No aortic aneurysm. Bones/joints: Severe osteoarthritis is seen in the dorsal spine . Multilevel intervertebral disc space narrowing and bone spurs are seen. Soft tissues: There is a hiatal hernia present measuring 40 mm x 65 mm PROCEDURE INFORMATION: Exam: CT Abdomen And Pelvis Without Contrast Exam date and time: 07/22/2022 2:54 PM Age: 77 years old Clinical indication: Other: Severe sepsis; Additional info: Severe sepsis, source unknown TECHNIQUE: Imaging protocol: Computed tomography of the abdomen and pelvis without contrast. Radiation optimization: All CT scans at this facility use at least one of these dose optimization techniques: automated exposure control; mA and/or kV adjustment per patient size (includes targeted exams where dose is matched to clinical indication); or iterative reconstruction. COMPARISON: CT abdomen pelvis w con* [id number] 10/31/2019 3:10 PM RADIATION DOSE METRICS: Total DLP (mGy-cm): 850.23 FINDINGS: Liver: Normal. No mass. Multiple scattered calcified granulomas Gallbladder and bile ducts: Cholecystectomy.. No ductal dilation. Pancreas: Normal. No ductal dilation. Spleen: Multiple calcified granulomas No splenomegaly. Adrenal glands: Normal. No mass. Kidneys and ureters: Right kidney is larger than the left kidney No hydronephrosis. Stomach and bowel: Unremarkable. No obstruction. No mucosal thickening. Appendix: No evidence of appendicitis. Intraperitoneal space: Unremarkable. No free air. No significant fluid collection. Vasculature: Unremarkable. No abdominal aortic aneurysm. Lymph nodes: Unremarkable. No enlarged lymph nodes. Urinary bladder: Unremarkable as visualized. Reproductive: Status post hysterectomy Bones/joints: Lumbar spine osteoarthritis No acute fracture. Soft tissues: Small Sheree umbilical ventral hernia filled with omental fat CT/[place] [id number] IMPRESSION: 1. Negative for acute abnormality. 2. Hiatal hernia 3. Calcified granulomas bilateral hilar and subcarinal region 4. Severe dorsal spine osteoarthritis. IMPRESSION: 1. No acute findings. 2. Cholecystectomy, and hysterectomy 3. Calcified granulomas are seen in the spleen and liver 4. Small Sheree umbilical ventral hernia 5. Sigmoid colon diverticulosis. 6. Lumbar spine osteoarthritis
[2022-07-22 16:05] LABS: Lactic Acid level (Lactate) 4.2 mmol/L (0.5-2.2)
[2022-07-22] MEDS: ondansetron 2 mg/ML SDV 2 mL 4 MG IVP ×2 (16:14→21:11)
--- NOTE | 2022-07-22 17:13 | ECG_ITS ---
[facility] Test Date: 2022-07-22 Pat Name: Daniela Cornelius Department: Room: Gender: Female Supervisor [employer]: : 1945 Requested By: Arun Manuel Order Number: [id number] Patricia MD: Bretrand Bennett M.D. Measurements Intervals [place] Rate: 97 P: 49 NC: 175 QRS: -7 QRSD: 103 T: 57 QT: 361 QTc: 460 Interpretive Statements SINUS RHYTHM SEPTAL MYOCARDIAL INFARCTION , PROBABLY OLD [40+ ms Q WAVE IN V1/V2] Compared to ECG 07/22/2022 10:40:19 No significant changes Electronically Signed On 07-23-2022 12:48:21 OUTER DIAMETER GRINDER by Bertrand Bennett M.D. [id number]
--- NOTE | 2022-07-22 17:19 | PC.NURSE ---
This nurse updated the family again on the waiting for a room for the patient on Medical-surgical floor, the reason why we are not currently loading the patient up on antibiotics and fluids. Family verbally understood. This nurse has had to repeat teachings to the patient and the family. Before each time the nurse leaves, the patient states that they understand.
[2022-07-22 18:54] LABS: Troponin 5 6HR 15.55 ng/L (0-10)
[2022-07-22 19:02] LABS: Troponin 5 6HR Delta -7.45 ng/L (0-12)
--- NOTE | 2022-07-22 20:00 | PC.NURSE ---
At 1915 - this proposal manager writer went into patient room to introduce self and assess pt due to shift change. Pt very lethargic but was able to answer questions approrpriately. Family at bedside inquiring about pt's antibx, admission status, and plan. Explained that shift change just occurred and that we are awaiting pt to be assigned a room - will notify them as soon as room is assigned. Pt has received one dose of levaquin here in ER, but this proposal manager writer told family will look into admit orders.
--- NOTE | 2022-07-22 20:25 | PC.NURSE ---
It was noted after nurse reviewed chart, admit orders, and received pt's room assignment for admission, that her admit orders have been in since 1416, but had not been started. Dr Moss was requested by this underwriter to update and speak with family per their request. Pt's family given update by Dr Moss and notified of patient's room assignment of 250-2, visitor policy, and estimated time until transport to room. Pt was also given nausea medication per request, denies any further needs at this time.
[2022-07-22] MEDS: sodium chloride 0.9% 1,000 ML 500 ML IV (21:11)
[2022-07-22 21:55] LABS: C Reactive Protein 274.3 mg/L (0.0-4.9)
[2022-07-22 22:02] LABS: Procalcitonin 3.47 ng/mL (0-0.5)
[2022-07-22] MEDS: oxyCODONE 5 mg IR Tab/Cap PO (22:11)
[2022-07-22] MEDS: meropenem 1,000 MG in sodium chloride 0.9% (plus) 50 ML 100 MG IV (22:15)
[2022-07-22] MEDS: sodium chloride 0.9% 1,000 ML 100 ML IV (22:28)
[2022-07-22] MEDS: heparin 5,000 unit/mL INJ 1 mL 5000 UNIT SUBCUT (22:28)
[2022-07-23] VITALS (9 sets, daily range): BP systolic 132–170; BP diastolic 73–97; PULSE 99–108; RESP 15–17; TEMP 36.6–37.4; O2SAT 89–93
[2022-07-23] MEDS: ondansetron 2 mg/ML SDV 2 mL 4 MG IVP (04:09)
--- NOTE | 2022-07-23 04:27 | PC.NURSE ---
call placed to in regards to critical lab: positive blood culture-gram - bacilli, no new orders recieved.
[2022-07-23] MEDS: levothyroxine 50 mcg Tablet PO (05:16)
[2022-07-23] MEDS: meropenem 1,000 MG in sodium chloride 0.9% (plus) 50 ML 100 MG IV (05:16)
[2022-07-23 05:49] LABS: Basophils # 0.1 10^3/uL (0.0-0.1); Basophils % 0.6 %; Eosinophils % 0.1 %; Hematocrit 39.9 % (37.0-47.0); Hemoglobin 12.9 g/dL (11.5-15.3); Lymphocytes # 0.7 10^3/uL (0.8-4.8); Lymphocytes % 3.8 %; Mean Corpuscular HGB Conc 32.3 g/dL (30.0-36.0); Mean Corpuscular Hemoglobin 31.6 pg (28.0-34.0); Mean Corpuscular Volume 97.8 fl (81-99); Mean Platelet Volume 10.7 fL (7.4-10.4); Monocytes # 0.7 10^3/uL (0.2-0.9); Monocytes % 3.7 %; Neutrophils # 16.62 10^3/uL (1.8-7.7); Neutrophils % 86.8 %; Nucleated Red Blood Cells % 0 %; Platelet Count 97 10^3/cmm (130-400); Red Blood Count 4.08 10^6/uL (4.1-5.3); Red Cell Distribution Width 14.2 % (12.1-15.1); White Blood Count 19.1 10^3/uL (4.0-10.0)
[2022-07-23 06:11] LABS: Alanine Aminotransferase 29 U/L (0-33); Alkaline Phosphatase 120 U/L (35-105); Anion Gap 17.5 (5-19); Aspartate Amino Transferase 35 U/L (0-32); Blood Urea Nitrogen 29 mg/dL (8-23); Calcium 8.7 mg/dL (8.5-10.5); Carbon Dioxide 19 mmol/L (22-29); Chloride 94 mmol/L (98-107); Globulin 3.3 g/dL (1.3-4.6); Glucose 124 mg/dL (65-115); Magnesium 1.6 mg/dL (1.7-2.3); Osmolality Calculated 271 mOsm/kg (285-295); Phosphorus 1.9 mg/dL (2.5-4.5); Potassium 3.5 mmol/L (3.5-5.1); Sodium 127 mmol/L (136-145); Total Bilirubin 0.7 mg/dL (0.15-1.2); Total Protein 6.3 g/dL (6.6-8.7)
[2022-07-23 06:54] LABS: Acinetobacter baumannii Not Detected (NOT DETECT); Bacteroides fragilis Not Detected (NOT DETECT); CTX-M Not Detected (NOT DETECT); Citrobacter Not Detected (NOT DETECT); Cronobacter sakazakii Not Detected (NOT DETECT); Enterobacter cloacae complex Not Detected (NOT DETECT); Enterobacter non cloacae Not Detected (NOT DETECT); Fusobacterium necrophorum Not Detected (NOT DETECT); Fusobacterium nucleatum Not Detected (NOT DETECT); Haemophilus influenzae Not Detected (NOT DETECT); IMP Resistance Gene Not Detected (NOT DETECT); KPC Resistance Gene Not Detected (NOT DETECT); Klebsiella pneumoniae group Not Detected (NOT DETECT); Morganella morganii Not Detected (NOT DETECT); NDM Resistance Gene Not Detected (NOT DETECT); Neisseria meningitidis Not Detected (NOT DETECT); OXA Resistance Gene Not Detected (NOT DETECT); Pan Candida Not Detected (NOT DETECT); Pan Gram-Positive Not Detected (NOT DETECT); Proteus mirabilis Not Detected (NOT DETECT); Pseudomonas aeruginosa Not Detected (NOT DETECT); Salmonella Not Detected (NOT DETECT); Serratia Not Detected (NOT DETECT); Serratia marcescens Not Detected (NOT DETECT); Stenotrophomonas maltophilia Not Detected (NOT DETECT); VIM Resistance Gene Not Detected (NOT DETECT)
[2022-07-23 06:57] LABS: Glucose Point of Care 120 mg/dL (70-110)
--- NOTE | 2022-07-23 08:20 | P.PN_ITS ---
Subjective Subjective: Patient endorses diffuse weakness, malaise and fatigue. is bedside and updated. She denies fevers, chills, chest pain or shortness of breath. Endorses poor appetite. Medications: Reviewed: Yes Vitals/I&O/Wt Last Vital Signs Temp 97.8 F 07/23/22 08:00 Pulse 104 H 07/23/22 08:00 Resp 17 07/23/22 08:00 BP 170/90 07/23/22 08:00 Pulse Ox 91 07/23/22 08:00 O2 Del Method 07/23/22 08:00 07/22/22 07/23/22 07/23/22 22:59 06:59 14:59 Intake Total 200 / 1200 Output Total 0 / 0 Balance 200 / 1200 Weight last 48 hrs Weight 77.111 kg Physical Exam Narrative: General: Patient is awake. Appears ill. Head: Normocephalic. Atraumatic. EOM intact. Neck: No JVD. Cardiovascular: Tachycardic. Hypertensive. No gallops. No murmurs. Lungs: Breath sounds are diminished bilateral bases, no use of accessory muscles, no crackles or wheezes. Skin: No jaundice. No rashes. Abdomen: Normal bowel sounds, abdomen soft and nontender. Genito Urinary: Genital exam not performed since complaints not related. Rectal: Rectal exam not performed since no symptoms indicated blood loss. Extremities: No cyanosis or clubbing. Musculoskeletal: No visible joint deformity. Neurological: Moves all 4 extremities. No myoclonus. Data 07/23/22 04:40 07/23/22 04:40 Micro: Microbiology 07/22/22 12:06 Blood Culture - Preliminary Blood 07/22/22 12:02 Blood Culture - Preliminary Blood SPECIMEN COLLECTED A&P Assessment and plan (1) Severe sepsis: With Lactic acidosis With Gram negative bacteremia End organ damage: KATTY BCx (07/22) 1/2 Gram negative bacilli Follow up final culture MRSA swab pending Continue meropenem (07/22-p) Continue vancomycin (07/22-p) Continue IV fluids CT imaging reviewed Continuous telemetry monitoring Supportive care (2) Left hip pain: CT imaging negative for acute findings Multimodal pain control (3) Transaminitis: Secondary to sepsis Continue to monitor liver function enzymes (4) Thrombocytopenia: Secondary to sepsis Continue to monitor (5) Acute kidney injury: Continue IV fluids Strict I's and O's Daily weights Avoid nephrotoxins Renally dose medications (6) Hyponatremia: Hypovolemic hyponatremia Continue IV fluids Trend sodium (7) Debility: Secondary sepsis Treat underlying infection Physical therapy evaluation (8) CAD (coronary artery disease): Restart home Imdur Qualifiers: Coronary Disease-Associated Artery/Lesion type: bypass graft, autologous artery Associated angina: without angina Qualified Code(s): I25.810 - At herosclerosis of coronary artery bypass graft(s) without angina pectoris (9) Hypothyroid: Continue Synthroid (10) HTN (hypertension): Hypotension has resolved Holding losartan Restart home Norvasc Qualifiers: Hypertension type: essential hypertension Qualified Code(s): I10 - Essential (primary) hypertension Plan DVT ppx: Heparin Code status: Full Code Attestations Medical Necessity Statement*: Patient requires ongoing hospitalization for follow up cultures, broad-spectrum antibiotics, IV fluids, and supportive care. Coding Level of Care Code Acute Rod Puller And Coiler for [facility] Fwd Diagnoses Severe sepsis A41.9; R65.20 Left hip pain M25.552 Transaminitis R74.01 Thrombocytopenia D69.6 Acute kidney injury N17.9 Hyponatremia E87.1 Debility R53.81 CAD (coronary artery disease) I25.810 Coronary Disease-Associated Artery/Lesion type: bypass graft, autologous artery Associated angina: without angina Hypothyroid E03.9 HTN (hypertension) I10 Hypertension type: essential hypertension
[2022-07-23] MEDS: amlodipine 5 mg Tablet 2.5 MG PO (08:37)
[2022-07-23] MEDS: isosorbide mononitrate ER 30 mg Tablet PO ×2 (08:37→17:44)
[2022-07-23] MEDS: ropinirole 0.25 mg Tablet PO (08:37)
[2022-07-23] MEDS: sodium chloride 0.9% 1,000 ML 100 ML IV (08:40)
[2022-07-23] MEDS: [UNRECOGNIZED DRUG - OTHER] 1 EACH TOPICAL ×2 (08:43→20:52)
[2022-07-23] MEDS: heparin 5,000 unit/mL INJ 1 mL 5000 UNIT SUBCUT ×2 (11:33→22:15)
[2022-07-23] MEDS: amlodipine 5 mg Tablet PO (11:55)
[2022-07-23] MEDS: meropenem 500 MG in sodium chloride 0.9% (plus) 50 ML 100 MG IV (17:45)
[2022-07-23] MEDS: LATANOPROST EYE DROPS 1 EACH TOPICAL (20:52)
[2022-07-24] VITALS (11 sets, daily range): BP systolic 110–156; BP diastolic 67–84; PULSE 72–93; RESP 16–18; TEMP 36.7–38.1; O2SAT 90–94
[2022-07-24] MEDS: sodium chloride 0.9% 1,000 ML 100 ML IV ×2 (01:34→10:09)
[2022-07-24] MEDS: acetaminophen 325 mg Tablet 650 MG PO (05:08)
[2022-07-24] MEDS: meropenem 500 MG in sodium chloride 0.9% (plus) 50 ML 100 MG IV (05:09)
[2022-07-24] MEDS: levothyroxine 50 mcg Tablet PO (05:09)
[2022-07-24 05:23] LABS: Hematocrit 31.6 % (37.0-47.0); Mean Corpuscular HGB Conc 34.8 g/dL (30.0-36.0); Mean Corpuscular Volume 91.9 fl (81-99); Mean Platelet Volume 10.7 fL (7.4-10.4); Platelet Count 95 10^3/cmm (130-400); Red Blood Count 3.44 10^6/uL (4.1-5.3); Red Cell Distribution Width 14.2 % (12.1-15.1)
--- NOTE | 2022-07-24 05:30 | PC.NURSE ---
patient is much more alert, coherent this am, elevated temp of 100.5, generalized achiness, tylenol administered. womack cath patent, draining blood tinged urine, clears to yellow at times. family remains at bedside.
[2022-07-24 05:46] LABS: Alanine Aminotransferase 22 U/L (0-33); Albumin Level 2.6 g/dL (3.5-5.2); Alkaline Phosphatase 98 U/L (35-105); Anion Gap 13.4 (5-19); Aspartate Amino Transferase 25 U/L (0-32); Blood Urea Nitrogen 20 mg/dL (8-23); Calcium 8.5 mg/dL (8.5-10.5); Carbon Dioxide 20 mmol/L (22-29); Chloride 99 mmol/L (98-107); Creatinine Clr Calc Pharmacy 52.0456; Glucose 113 mg/dL (65-115); Magnesium 1.8 mg/dL (1.7-2.3); Osmolality Calculated 271 mOsm/kg (285-295); Potassium 3.4 mmol/L (3.5-5.1); Sodium 129 mmol/L (136-145); Total Bilirubin 0.7 mg/dL (0.15-1.2); Total Protein 5.6 g/dL (6.6-8.7)
[2022-07-24 05:59] LABS: Absolute Eosinophils 0.1 10^3/cmm (0.0-0.7); Absolute Neutrophil 8.9 10^3/cmm (1.4-6.5); Absolute Segmented Neutrophil 6.4 10/cmm (1.6-7.1); Band Neutrophils Absolute 2.5 10^3/cmm (0.0-1.2); Eosinophils 1 %; Lymphocytes 9 %; Lymphocytes Absolute 1.2 10^3/cmm (1.2-3.4); Monocytes Absolute 0.7 10^3/cmm (0.1-0.6); Platelet Estimate Decreased (Normal); Segmented Neutrophils 58 %; Total Cells Counted 100 (0-100)
[2022-07-24] MEDS: potassium chloride ER 20 mEq Tablet PO (06:44)
--- NOTE | 2022-07-24 07:05 | P.PN_ITS ---
Subjective Subjective: Patient states she is starting to feel better. Continues to endorse generalized weakness, malaise, and fatigue. Wants to get out of bed today. Denies fevers, chills, nausea or emesis. Endorses poor appetite. , son, and daughter present and updated. Medications: Reviewed: Yes Vitals/I&O/Wt Last Vital Signs Temp 98.1 F 07/24/22 06:41 Pulse 84 07/24/22 05:58 Resp 16 07/24/22 04:00 BP 153/84 07/24/22 04:00 Pulse Ox 91 07/24/22 04:00 O2 Del Method 07/23/22 15:28 07/23/22 07/24/22 07/24/22 22:59 06:59 14:59 Intake Total 1050 / 2207 Output Total 900 / 1850 1600 / 3450 Balance 150 / 357 -1600 / -1243 Weight last 48 hrs Weight 84.394 kg Weight 77.111 kg Physical Exam Narrative: General: Patient is awake. Appears fatigued. Head: Normocephalic. Atraumatic. Neck: No JVD. Cardiovascular: Normal rate. Regular rhythm. No gallops. No murmurs. Lungs: Breath sounds are diminished bilateral bases, no use of accessory muscles, no crackles or wheezes. Skin: No jaundice. No rashes. Abdomen: Normal bowel sounds, abdomen soft and nontender. Genito Urinary: Genital exam not performed since complaints not related. Rectal: Rectal exam not performed since no symptoms indicated blood loss. Extremities: No cyanosis or clubbing. Musculoskeletal: No visible joint deformity. Neurological: Moves all 4 extremities. No myoclonus. Urinary Catheter Management: Rich: Cath Placed During This Visit: yes Reason for Continuing Indwelling Catheter: Acute Urinary Retention or Obstruction Urinary Catheter Date of Insertion: 07/23/22 Urinary Catheter Time of Insertion: 14:03 Data 07/24/22 05:02 07/24/22 05:02 Micro: Microbiology 07/23/22 03:35 MRSA Culture - Final Nose 07/22/22 12:02 Blood Culture - Preliminary Blood NEGATIVE TO DATE 07/22/22 13:13 Urine Culture - Preliminary Urine,Clean Catch Gram Negative Rods 07/22/22 12:06 Blood Culture - Preliminary Blood Escherichia coli. A&P Assessment and plan (1) Severe sepsis: Secondary to E coli bacteremia BCx (07/22) w/ E coli Continue meropenem (07/22-p) Discontinue vancomycin (07/22-p) Continue IV fluids Continuous telemetry monitoring Supportive care (2) Left hip pain: Multimodal pain control Physical therapy ordered (3) Transaminitis: Secondary to sepsis Continue to monitor liver function enzymes (4) Thrombocytopenia: Secondary to sepsis Continue to monitor (5) Acute kidney injury: Continue IV fluids Strict I's and O's Daily weights Avoid nephrotoxins Renally dose medications (6) Hyponatremia: Hypovolemic hyponatremia Continue IV fluids Trend sodium (7) Debility: Secondary sepsis Treat underlying infection Physical therapy evaluation (8) CAD (coronary artery disease): Continue home Imdur Qualifiers: Coronary Disease-Associated Artery/Lesion type: bypass graft, autologous artery Associated angina: without angina Qualified Code(s): I25.810 - Atherosclerosis of coronary artery bypass graft(s) without angina pectoris (9) Hypothyroid: Continue Synthroid (10) HTN (hypertension): Restart losartan Holding HCTZ Continue home Norvasc Qualifiers: Hypertension type: essential hypertension Qualified Code(s): I10 - Essential (primary) hypertension (11) Metabolic acidemia: Persistent acidosis 2/2 sepsis (12) Hypokalemia: Replace potassium (13) Hypophosphatasia: Replace phosphorus (14) Hypomagnesemia: Replace magnesium (15) Urinary retention: Status post Rich catheter placement Will need voiding trial prior to discharge OOB to chair Plan DVT ppx: Heparin Code status: Full Code Attestations Medical Necessity Statement*: Patient requires ongoing hospitalization for follow up cultures and sensitivities, broad-spectrum antibiotics, IV fluids, serial labs, electrolyte replacement, and supportive care. Coding Level of Care Code Acute Television Production Assistant for [facility] Fwd Diagnoses Severe sepsis A41.9; R65.20 Left hip pain M25.552 Transaminitis R74.01 Thrombocytopenia D69.6 Acute kidney injury N17.9 Hyponatremia E87.1 Debility R53.81 CAD (coronary artery disease) I25.810 Coronary Disease-Associated Artery/Lesion type: bypass graft, autologous artery Associated angina: without angina Hypothyroid E03.9 HTN (hypertension) I10 Hypertension type: essential hypertension Metabolic acidemia E87.20 Hypokalemia E87.6 Hypophosphatasia E83.39 Hypomagnesemia E83.42 Urinary retention R33.9
[2022-07-24] MEDS: ropinirole 0.25 mg Tablet PO (08:09)
[2022-07-24] MEDS: losartan 50 mg Tablet 25 MG PO (08:09)
[2022-07-24] MEDS: amlodipine 5 mg Tablet 2.5 MG PO (08:10)
[2022-07-24] MEDS: isosorbide mononitrate ER 30 mg Tablet PO ×2 (08:10→17:49)
[2022-07-24] MEDS: [UNRECOGNIZED DRUG - OTHER] 1 EACH TOPICAL ×3 (08:55→21:12)
[2022-07-24] MEDS: lanolin oint 7 gm 1 APPLIC TOPICAL (08:55)
[2022-07-24] MEDS: heparin 5,000 unit/mL INJ 1 mL 5000 UNIT SUBCUT ×2 (11:28→21:11)
[2022-07-24] MEDS: meropenem 1,000 MG in sodium chloride 0.9% (plus) 50 ML 100 MG IV ×2 (16:05→21:43)
[2022-07-24] MEDS: morphine 4 mg/mL SDV 1 mL 2 MG IVP (16:32)
[2022-07-24] MEDS: LATANOPROST EYE DROPS 1 EACH TOPICAL (21:12)
--- NOTE | 2022-07-24 21:44 | PC.NURSE ---
Pt states pt is hungry and wants milk. Milk and sandwhich provided at this time.
[2022-07-25] VITALS (9 sets, daily range): BP systolic 128–160; BP diastolic 72–83; PULSE 68–91; RESP 16–18; TEMP 36.5–37.1; O2SAT 91–97
[2022-07-25] MEDS: sodium chloride 0.9% 1,000 ML 100 ML IV (01:47)
[2022-07-25] MEDS: acetaminophen 325 mg Tablet 650 MG PO ×2 (01:51→15:01)
[2022-07-25 05:05] LABS: Basophils # 0.1 10^3/uL (0.0-0.1); Basophils % 0.6 %; Eosinophils # 0.1 10^3/uL (0.0-0.8); Eosinophils % 1.3 %; Hematocrit 30.9 % (37.0-47.0); Hemoglobin 10.4 g/dL (11.5-15.3); Lymphocytes # 1.3 10^3/uL (0.8-4.8); Lymphocytes % 15.7 %; Mean Corpuscular HGB Conc 33.7 g/dL (30.0-36.0); Mean Corpuscular Hemoglobin 31.2 pg (28.0-34.0); Mean Corpuscular Volume 92.8 fl (81-99); Mean Platelet Volume 11.5 fL (7.4-10.4); Monocytes # 1.1 10^3/uL (0.2-0.9); Monocytes % 13.3 %; Neutrophils # 5.27 10^3/uL (1.8-7.7); Neutrophils % 63.8 %; Nucleated Red Blood Cells % 0 %; Platelet Count 91 10^3/cmm (130-400); Red Blood Count 3.33 10^6/uL (4.1-5.3); Red Cell Distribution Width 14.6 % (12.1-15.1); White Blood Count 8.3 10^3/uL (4.0-10.0)
[2022-07-25] MEDS: meropenem 1,000 MG in sodium chloride 0.9% (plus) 50 ML 100 MG IV ×3 (05:23→21:09)
[2022-07-25] MEDS: levothyroxine 50 mcg Tablet PO (05:23)
[2022-07-25 06:17] LABS: Slide Review Slide Review Perform
[2022-07-25 06:39] LABS: Alanine Aminotransferase 19 U/L (0-33); Albumin Level 2.6 g/dL (3.5-5.2); Alkaline Phosphatase 81 U/L (35-105); Blood Urea Nitrogen 17 mg/dL (8-23); Calcium 8.1 mg/dL (8.5-10.5); Carbon Dioxide 19 mmol/L (22-29); Chloride 96 mmol/L (98-107); Globulin 2.2 g/dL (1.3-4.6); Glucose 105 mg/dL (65-115); Magnesium 1.6 mg/dL (1.7-2.3); Osmolality Calculated 260 mOsm/kg (285-295); Phosphorus 2.6 mg/dL (2.5-4.5); Sodium 124 mmol/L (136-145); Total Bilirubin 0.7 mg/dL (0.15-1.2); Total Protein 4.8 g/dL (6.6-8.7)
[2022-07-25 07:05] LABS: Anion Gap 12.7 (5-19); Aspartate Amino Transferase 26 U/L (0-32); Potassium 3.7 mmol/L (3.5-5.1)
--- NOTE | 2022-07-25 08:07 | P.PN_ITS ---
Subjective Subjective: Patient reports poor oral intake. States that she is starting to eat a little bit more. She reports she was able to ambulate out into the hallway yesterday. Denies fevers, chills, chest pain or shortness of breath. is bedside. Updated on plan of care. Medications: Reviewed: Yes Vitals/I&O/Wt Last Vital Signs Temp 97.7 F 07/25/22 07:47 Pulse 73 07/25/22 07:47 Resp 16 07/25/22 07:47 BP 160/78 07/25/22 07:47 Pulse Ox 93 07/25/22 07:47 O2 Del Method 07/25/22 07:47 07/24/22 07/25/22 07/25/22 22:59 06:59 14:59 Intake Total 1080 / 2813.333 473.333 / 3286.666 Output Total 1025 / 1325 850 / 2175 Balance 55 / 1488.333 -376.667 / 1111.666 Weight last 48 hrs Weight 83.37 kg Weight 84.394 kg Physical Exam Narrative: General: Patient is awake. Alert. Head: Normocephalic. Atraumatic. Neck: No JVD. Cardiovascular: Normal rate. Regular rhythm. No gallops. No murmurs. Lungs: Breath sounds are diminished bilateral bases, no use of accessory muscles, no crackles or wheezes. Skin: No jaundice. No rashes. Abdomen: Normal bowel sounds, abdomen soft and nontender. Genito Urinary: Rich catheter is present. Rectal: Rectal exam not performed since no symptoms indicated blood loss. Extremities: No cyanosis or clubbing. Musculoskeletal: No visible joint deformity. Neurological: Moves all 4 extremities. No myoclonus. Urinary Catheter Management: Rich: Cath Placed During This Visit: yes Reason for Continuing Indwelling Catheter: Acute Urinary Retention or Obstruction Urinary Catheter Date of Insertion: 07/23/22 Urinary Catheter Time of Insertion: 14:03 Data 07/25/22 04:12 07/25/22 06:10 A&P Assessment and plan (1) Severe sepsis: Secondary to E coli bacteremia BCx (07/22) w/ E coli Follow up sensitivities, hopefully there will be an oral option Continue meropenem (07/22-p) Discontinue IV fluids Continuous telemetry monitoring Supportive care (2) Urinary retention: Remove Rich catheter Voiding trial Encourage ambulation (3) Left hip pain: Multimodal pain control Continue physical therapy (4) Transaminitis: Secondary to sepsis Continue to monitor liver function enzymes (5) Thrombocytopenia: Secondary to sepsis, resolved (6) Acute kidney injury: Status post IV fluids, resolved (7) Hyponatremia: Worsening, sodium not responding to treatment as intended Stop IV fluids Salt tab Trend sodium (8) Debility: Secondary sepsis Treat underlying infection Physical therapy following (9) CAD (coronary artery disease): Continue home Imdur Qualifiers: Coronary Disease-Associated Artery/Lesion type: bypass graft, autologous artery Associated angina: without angina Qualified Code(s): I25.810 - Atherosclerosis of coronary artery bypass graft(s) without angina pectoris (10) Hypothyroid: Continue Synthroid (11) HTN (hypertension): Continue losartan Holding HCTZ due to hyponatremia Continue home Norvasc Qualifiers: Hypertension type: essential hypertension Qualified Code(s): I10 - Essential (primary) hypertension (12) Metabolic acidemia: Persistent acidosis 2/2 sepsis (13) Hypokalemia: Status post replacement, resolved (14) Hypophosphatasia: Status post replacement, resolved (15) Hypomagnesemia: Magnesium sulfate ordered Plan DVT ppx: Heparin Code status: Full Code Attestations Medical Necessity Statement*: Patient requires ongoing hospitalization for follow up cultures and sensitivities, broad-spectrum antibiotics, serial labs, electrolyte replacement, voiding trial, and supportive care. Coding Level of Care Code Acute [facility] Diagnoses Severe sepsis A41.9; R65.20 Urinary retention R33.9 Left hip pain M25.552 Transaminitis R74.01 Thrombocytopenia D69.6 Acute kidney injury N17.9 Hyponatremia E87.1 Debility R53.81 CAD (coronary artery disease) I25.810 Coronary Disease-Associated Artery/Lesion type: bypass graft, autologous artery Associated angina: without angina Hypothyroid E03.9 HTN (hypertension) I10 Hypertension type: essential hypertension Metabolic acidemia E87.20 Hypokalemia E87.6 Hypophosphatasia E83.39 Hypomagnesemia E83.42
--- NOTE | 2022-07-25 09:08 | PC.SOCIAL ---
IMM update IMM updated at bedside with patient. Copy of page 2 provided. Patient verbalized understanding. Copy in chart initialed, dated and timed.
[2022-07-25] MEDS: amlodipine 5 mg Tablet 2.5 MG PO (09:42)
[2022-07-25] MEDS: losartan 50 mg Tablet 25 MG PO (09:43)
[2022-07-25] MEDS: ropinirole 0.25 mg Tablet PO (09:43)
[2022-07-25] MEDS: heparin 5,000 unit/mL INJ 1 mL 5000 UNIT SUBCUT ×2 (09:44→21:08)
[2022-07-25] MEDS: sodium bicarbonate 650 mg Tablet PO ×2 (09:44→17:47)
[2022-07-25] MEDS: [UNRECOGNIZED DRUG - OTHER] 1 EACH TOPICAL ×3 (09:45→21:09)
[2022-07-25] MEDS: isosorbide mononitrate ER 30 mg Tablet PO ×2 (11:03→17:47)
[2022-07-25] MEDS: ondansetron 2 mg/ML SDV 2 mL 4 MG IVP (19:33)
--- NOTE | 2022-07-25 21:05 | PC.NURSE ---
Referred pt to Dr. Vela for review of pt request for medication to help her sleep. Will await orders as pt does not currently have any medication for sleep ordered at this time.
[2022-07-25] MEDS: LATANOPROST EYE DROPS 1 EACH TOPICAL (21:09)
[2022-07-25] MEDS: oxyCODONE 5 mg IR Tab/Cap PO (21:54)
[2022-07-25] MEDS: zolpidem 5 mg Tablet 2.5 MG PO (21:57)
--- NOTE | 2022-07-25 22:02 | PC.NURSE ---
NO received and noted for Ambien 2.5 mg qhs PRN sleep. Ambien administered per orders.
[2022-07-26] VITALS: BP 116/60; PULSE 69; RESP 16; TEMP 36.8; O2SAT 94
[2022-07-26 04:00] VITALS: BP 168/83; PULSE 82; RESP 17; TEMP 36.9; O2SAT 92
[2022-07-26 05:56] LABS: Albumin Level 2.5 g/dL (3.5-5.2); Anion Gap 12.5 (5-19); Blood Urea Nitrogen 14 mg/dL (8-23); Calcium 8.6 mg/dL (8.5-10.5); Carbon Dioxide 22 mmol/L (22-29); Chloride 95 mmol/L (98-107); Glucose 92 mg/dL (65-115); Magnesium 1.7 mg/dL (1.7-2.3); Phosphorus 2.8 mg/dL (2.5-4.5); Potassium 3.5 mmol/L (3.5-5.1); Sodium 126 mmol/L (136-145)
[2022-07-26] MEDS: levothyroxine 50 mcg Tablet PO (05:57)
[2022-07-26] MEDS: meropenem 1,000 MG in sodium chloride 0.9% (plus) 50 ML 100 MG IV (05:58)
[2022-07-26 06:49] VITALS: PULSE 71
--- NOTE | 2022-07-26 07:52 | P.DS_ITS ---
Discharge Providers Date of Admission: 07/22/22 13:59 Date of Discharge: July 26, 2022 Attending Provider at Admission: Omega Chao MD Attending Provider at Discharge: Omega Chao MD Consults: None Primary Care Provider: Omega Woods MD Diagnoses at Discharge Discharge Diagnosis (1) Severe sepsis: Status: Acute (2) Urinary retention: Status: Acute (3) Left hip pain: Status: Acute (4) Transaminitis: Status: Acute (5) Thrombocytopenia: Status: Acute (6) Acute kidney injury: Status: Acute (7) Hyponatremia: Status: Acute (8) Debility: Status: Acute (9) CAD (coronary artery disease): Status: Acute Qualifiers: Coronary Disease-Associated Artery/Lesion type: bypass graft, autologous artery Associated angina: without angina Qualified Code(s): I25.810 - Atherosclerosis of coronary artery bypass graft(s) without angina pectoris (10) Hypothyroid: Status: Acute (11) HTN (hypertension): Status: Acute Qualifiers: Hypertension type: essential hypertension Qualified Code(s): I10 - Essential (primary) hypertension (12) Metabolic acidemia: Status: Acute (13) Hypokalemia: Status: Acute (14) Hypophosphatasia: Status: Acute (15) Hypomagnesemia: Status: Acute Reason for Visit Reason for Visit: low BP Hospital Course Hospital Course Daniela Cornelius is a 77 year old female with a past medical history significant for coronary artery disease with history of CABG, hypertension and hypothyroidism who presents with hypotension, found to have severe sepsis secondary to E coli bacteremia and E coli urinary tract infection. Patient also found to have hyponatremia, hypokalemia, hypophosphatemia, metabolic acidosis, acute kidney injury, thrombocytopenia, and leukocytosis. Patient was treated with IV fluids resuscitation and broad spectrum antibiotics, initially meropenem and vancomycin. Vancomycin was discontinued after MRSA was ruled out. She was narrowed to cefdinir at discharge to complete at least 14 days of antibiotic therapy for E coli bacteremia. Hospital course was complicated by acute urinary retention requiring temporary Rich catheter which resolved prior to discharge. Patient's electrolytes improved with treatment. At time of discharge she remained hyponatremic, albiet improved from admission. Her hydrochlorothiazide was discontinued and she was treated with sodium bicarbonate tablets for one week. She is to follow up with her primary care provider in 1 week with renal panel. She was discharged to home with family and home health in stable condition. Physical Exam Narrative: General: Patient is awake and alert. Very pleasant. Head:? Normocephalic. Atraumatic. Neck: No JVD. Cardiovascular: Normal rate. Regular rhythm.? No gallops. No murmurs. Lungs: Breath sounds are diminished bilateral bases, no use of accessory muscles, no crackles or wheezes. Skin: No jaundice. No rashes. Abdomen: Normal bowel sounds, abdomen soft and nontender. Extremities: No cyanosis or clubbing. Musculoskeletal: No visible joint deformity. Neurological: Moves all 4 extremities. No myoclonus. No focal weakness. Urinary Catheter Management: Rich: Cath Placed During This Visit: yes, but has since been removed by the nurse Reason for Continuing Indwelling Catheter: Acute Urinary Retention or Obstruction Urinary Catheter Date of Insertion: 07/23/22 Urinary Catheter Time of Insertion: 14:03 Date Urinary Catheter Removed: 07/25/22 Time Urinary Catheter Discontinued: 09:17 Discharge Data Studies Completed and Pending Completed Studies During Hospitalization Category [place] [id number] Stat Cat Scan 07/22/22 14:[address] hip LT wo con* [id number] Stat Cat Scan 07/22/22 14:26 Completed XR chest 1V portable [id number] Stat Exams 07/22/22 10:44 Completed Pending at discharge Category Date Time Status Blood Culture Stat Lab 07/22/22 12:06 Results Radiology Impressions Chest X-Ray 07/22/22 10:44 IMPRESSION: No acute findings. Chest/Abdomen/Pelvis CT 07/22/22 14:26 IMPRESSION: 1. Negative for acute abnormality. 2. Hiatal hernia 3. Calcified granulomas bilateral hilar and subcarinal region 4. Severe dorsal spine osteoarthritis. IMPRESSION: 1. No acute findings. 2. Cholecystectomy, and hysterectomy 3. Calcified granulomas are seen in the spleen and liver 4. Small Sheree umbilical ventral hernia 5. Sigmoid colon diverticulosis. 6. Lumbar spine osteoarthritis Hip CT 07/22/22 14:26 IMPRESSION: Unremarkable CT. Laboratory Results WBC 8.3 10^3/uL (4.0-10.0) 07/25/22 04:12 RBC 3.33 10^6/uL (4.1-5.3) L 07/25/22 04:12 Hgb 10.4 g/dL (11.5-15.3) L 07/25/22 04:12 Hct 30.9 % (37.0-47.0) L 07/25/22 04:12 MCV 92.8 fl (81-99) 07/25/22 04:12 MCH 31.2 pg (28.0-34.0) 07/25/22 04:12 MCHC 33.7 g/dL (30.0-36.0) 07/25/22 04:12 RDW 14.6 % (12.1-15.1) 07/25/22 04:12 Plt Count 91 10^3/cmm (130-400) L 07/25/22 04:12 MPV 11.5 fL (7.4-10.4) H 07/25/22 04:12 Neut % (Auto) 63.8 % 07/25/22 04:12 Lymph % (Auto) 15.7 % 07/25/22 04:12 [place] % (Auto) 13.3 % 07/25/22 04:12 Eos % (Auto) 1.3 % 07/25/22 04:12 Baso % (Auto) 0.6 % 07/25/22 04:12 Neut # (Auto) 5.27 10^3/uL (1.8-7.7) 07/25/22 04:12 Lymph # (Auto) 1.3 10^3/uL (0.8-4.8) 07/25/22 04:12 [place] # (Auto) 1.1 10^3/uL (0.2-0.9) H 07/25/22 04:12 Eos # (Auto) 0.1 10^3/uL (0.0-0.8) 07/25/22 04:12 Baso # (Auto) 0.1 10^3/uL (0.0-0.1) 07/25/22 04:12 Nucleated RBC % (auto) 0 % 07/25/22 04:12 Total Counted 100 (0-100) 07/24/22 05:02 Atypical Lymphs % 2.0 % (0-5) 07/24/22 05:02 Absolute Neutrophils 8.9 10^3/cmm (1.4-6.5) H 07/24/22 05:02 Segmented Neutrophils 58 % 07/24/22 05:02 Abs Segm Neuts (Man) 6.4 10/cmm (1.6-7.1) 07/24/22 05:02 Band Neutrophils 23.0 % 07/24/22 05:02 Abs Band Neuts (Man) 2.5 10^3/cmm (0.0-1.2) H 07/24/22 05:02 Absolute Lymphocytes 1.2 10^3/cmm (1.2-3.4) 07/24/22 05:02 Lymphocytes (Manual) 9 % 07/24/22 05:02 Monocytes (Manual) 6.0 % 07/24/22 05:02 Absolute Monocytes 0.7 10^3/cmm (0.1-0.6) H 07/24/22 05:02 Eosinophils (Manual) 1 % 07/24/22 05:02 Absolute Eosinophils 0.1 10^3/cmm (0.0-0.7) 07/24/22 05:02 Basophils (Manual) 0.0 % 07/24/22 05:02 Absolute Basophils 0.0 10^3/cmm (0.0-0.2) 07/24/22 05:02 Myelocytes 1.0 % 07/24/22 05:02 Nucleated RBCs # 0.0 /100WBC 07/25/22 04:12 Platelet Estimate Decreased (Normal) L 07/24/22 05:02 Giant Platelets Trace 07/22/22 10:45 Polychromasia 1+ H 07/22/22 10:45 Hypochromasia 1+ H 07/22/22 10:45 Poikilocytosis 1+ H 07/22/22 10:45 Anisocytosis 1+ H 07/22/22 10:45 Microcytosis 1+ H 07/22/22 10:45 Macrocytosis 1+ H 07/22/22 10:45 Spherocytes 1+ 07/22/22 10:45 Sodium 126 mmol/L (136-145) L 07/26/22 04:19 Potassium 3.5 mmol/L (3.5-5.1) 07/26/22 04:19 Chloride 95 mmol/L (98-107) L 07/26/22 04:19 Carbon Dioxide 22 mmol/L (22-29) 07/26/22 04:19 Anion Gap 12.5 (5-19) 07/26/22 04:19 BUN 14 mg/dL (8-23) 07/26/22 04:19 Creatinine 0.7 mg/dL (0.5-0.9) 07/26/22 04:19 GFR Calculation Not Reportable 07/26/22 04:19 Glucose 92 mg/dL (65-115) 07/26/22 04:19 POC Glucose 120 mg/dL (70-110) H 07/23/22 06:48 Calculated Osmolality 260 mOsm/kg (285-295) L 07/25/22 06:10 Lactic Acid 3.6 mmol/L (0.5-2.2) H 07/22/22 12:06 Lactic Acid (Sepsis) 4.2 mmol/L (0.5-2.2) H* 07/22/22 15:30 Calcium 8.6 mg/dL (8.5-10.5) 07/26/22 04:19 Phosphorus 2.8 mg/dL (2.5-4.5) 07/26/22 04:19 Magnesium 1.7 mg/dL (1.7-2.3) 07/26/22 04:19 Total Bilirubin 0.7 mg/dL (0.15-1.2) 07/25/22 06:10 AST 26 U/L (0-32) 07/25/22 06:10 ALT 19 U/L (0-33) 07/25/22 06:10 Alkaline Phosphatase 81 U/L (35-105) 07/25/22 06:10 Troponin T Baseline 23 ng/L (0-10) H 07/22/22 10:55 Troponin T 120 Minute 18.15 ng/L (0-10) H 07/22/22 12:55 Delta Troponin T -4.85 ABS# (0-10) L 07/22/22 12:55 Troponin T Hi Sens 6Hr 15.55 ng/L (0-10) H 07/22/22 18:31 Troponin T Hi Sens 6Hr Delta -7.45 ng/L (0-12) L 07/22/22 18:31 C-Reactive Protein 274.3 mg/L (0.0-4.9) H 07/22/22 18:31 Total Protein 4.8 g/dL (6.6-8.7) L 07/25/22 06:10 Albumin 2.5 g/dL (3.5-5.2) L 07/26/22 04:19 Globulin 2.2 g/dL (1.3-4.6) 07/25/22 06:10 Procalcitonin 3.47 ng/mL (0-0.5) H 07/22/22 18:31 Urine Color Yellow (Yellow) 07/22/22 13:13 Urine Appearance Clear (CLEAR) 07/22/22 13:13 Urine pH 5 (5-7) 07/22/22 13:13 Ur Specific [place] 1.010 (1.005-1.030) 07/22/22 13:13 Urine Protein Trace (Negative) 07/22/22 13:13 Urine Glucose (UA) Norm (Normal) 07/22/22 13:13 Urine Ketones Negative (Negative) 07/22/22 13:13 Urine Blood 2+ (Negative) H 07/22/22 13:13 Urine Nitrate Positive (Negative) H 07/22/22 13:13 Urine Bilirubin Neg (Negative) 07/22/22 13:13 Urine Urobilinogen Neg mg/dL (Negative) 07/22/22 13:13 Ur Leukocyte Esterase 2+ (Negative) H 07/22/22 13:13 Urine RBC 0-4 /hpf (0-2) H 07/22/22 13:13 Urine WBC 5-10 /hpf (0-5) H 07/22/22 13:13 Ur Squamous Epith Cells 0-4 /hpf (0-5) H 07/22/22 13:13 Amorphous Sediment Not Reportable 07/22/22 13:13 Urine Bacteria 4+ /hpf (NONE) H 07/22/22 13:13 Additional Data from Hospital Stay Blood Culture Preliminary 07/25/22-1505 2 OF 3 BLOOD CULTURE BOTTLES POSITIVE DIRECT GRAM STAIN: GRAM NEGATIVE BACILLI IDENTIFICATION BY DIRECT PCR: Escherichia coli. Organism 1 Escherichia coli Growth 2 BOTTLES Gram Stain Charge 2 CRITICAL RESULT YES/NO: YES CRITICAL CALLED BY: ANTONIO TO AND READ BACK BY: KARL DATE: 07/23/22 TIME: 0405 2ND CRITICAL RES YES/NO: YES 2ND CRITICAL CALLED BY: RT 2ND TO AND READ BACK BY: [email or web address] DATE: 07/23/22 2ND CRITICAL TIME: 943 E coli M.I.C. RX --------- ------ * Amikacin <=16 S * Amoxicillin/Clavulanate <=8/4 S * Ampicillin <=8 S * Ampicillin/Sulbactam <=8/4 S * Aztreonam <=4 S * Cefepime <=8 S * Ceftriaxone <=1 S * Cefuroxime <=4 S * Ciprofloxacin <=1 S * Gentamicin <=2 S * Imipenem <=1 S * Levofloxacin <=2 S * Tetracycline <=4 S * Trimethoprim/Sulfamethoxazole <=2/38 S * Piperacillin/Tazobactam <=16 S Blood Culture Preliminary (changed) 07/23/22-1028 2 OF 3 BLOOD CULTURE BOTTLES POSITIVE DIRECT GRAM STAIN: GRAM NEGATIVE BACILLI IDENTIFICATION BY DIRECT PCR: Escherichia coli. SENSITIVITIES TO FOLLOW. CRITICAL RESULT YES/NO: YES CRITICAL CALLED BY: ANTONIO TO AND READ BACK BY: KARL DATE: 07/23/22 TIME: 404 2ND CRITICAL RES YES/NO: YES 2ND CRITICAL CALLED BY: RT 2ND TO AND READ BACK BY: [email or web address] DATE: 07/23/22 2ND CRITICAL TIME: 943 Blood Culture Preliminary (changed) 07/23/22-404 1 OF 3 BLOOD CULTURE POSITIVE BOTTLES POSITIVE, AEROBIC BOTTLE DIRECT GRAM STAIN: GRAM NEGATIVE BACILLI, IDENTIFICATION TO FOLLOW. CRITICAL RESULT YES/NO: YES CRITICAL CALLED BY: ANTONIO TO AND READ BACK BY: DANIEL/ DATE: 07/23/22 TIME: 404 Blood Culture Preliminary (changed) 07/22/22-1216 SPECIMEN COLLECTED Procedures Performed None Vitals Last Vital Signs Temp 98.5 F 07/26/22 04:00 Pulse 71 07/26/22 06:49 Resp 17 07/26/22 04:00 BP 168/83 07/26/22 04:00 Pulse Ox 92 07/26/22 04:00 O2 Del Method 07/25/22 15:07 Discharge Plan Discharge Patient Disposition: Home Health Service Condition: Stable Prescriptions: New sodium bicarbonate 650 mg Tablet 650 mg PO BID 7 Days Qty: 14 0RF losartan 100 mg tablet 100 mg PO DAILY Qty: 30 0RF amlodipine 10 mg tablet 10 mg PO DAILY Qty: 30 0RF cefdinir 300 mg capsule 300 mg PO Q12H 12 Days Qty: 24 0RF Continued cholecalciferol (vitamin D3) 125 mcg (5,000 unit) capsule 5,000 unit PO DAILY vitamin B complex [B Complex-Vitamin B12] Tablet 1 tab PO DAILY magnesium oxide 500 mg capsule 500 mg PO DAILY dorzolamide 2 % drops 1 drp ophthalmic (eye) TID latanoprost 0.005 % drops 1 drp ophthalmic (eye) DAILY metoprolol tartrate 50 mg tablet 50 mg PO BID nitroglycerin [Nitrostat] 0.4 mg tablet, sublingual 0.4 mg SUBLINGUAL Q5M PRN (Reason: chest pain) Qty: 1 3RF Rx Instructions: until response; do not exceed 3 doses per episode isosorbide mononitrate 30 mg tablet extended release 24 hr 30 mg PO BID Qty: 180 3RF levothyroxine 50 mcg tablet See Rx Instructions .ROUTE .COMPLEX Qty: 90 3RF Dose Instruction: TAKE 1 TABLET BY MOUTH IN THE MORNING 1/2 HOUR BEFORE BREAKFAST TAKE WITH WATER ONLY. Rx Instructions: TAKE 1 TABLET BY MOUTH IN THE MORNING 1/2 HOUR BEFORE BREAKFAST TAKE WITH WATER ONLY. omeprazole 40 mg capsule,delayed release(DR/EC) 40 mg PO DAILY PRN (Reason: heartburn) Qty: 90 3RF celecoxib 100 mg capsule 100 mg PO BID Qty: 180 3RF ropinirole 0.25 mg tablet 0.25 mg PO DAILY Tylenol 325 mg Capsule 650 mg PO QID PRN (Reason: Pain) aspirin 325 mg Tablet 325 mg PO DAILY Discontinued amlodipine 2.5 mg tablet 2.5 mg PO DAILY Qty: 30 1RF losartan-hydrochlorothiazide 100-25 mg tablet 1 tab PO DAILY Qty: 30 6RF ibuprofen [Advil] 200 mg Tablet 400 mg PO Q6H PRN (Reason: Pain) Discharge Orders: Discharge Order (Routine); Ordered 07/26/22 Ordered By: Omega Chao Other Ambulatory Orders: Renal Function Panel (Routine) Timeframe: 1 Week Facility: [facility] - Location: Lab - Main Lab Ordered By: Omega Chao Referrals: Omega Woods MD [Primary Care Provider] - 4-7 days (Call tomorrow morning to schedule hospital follow up appointment.) Discharge Diet: Advance as tolerated and Cardiac Discharge Activity: Resume usual activity, Increase activity as tolerated and As per PT/OT instructions Patient Instructions: Opioid Safety Activity Restrictions/Additional Instructions: 1. Take medications as prescribed. 2. Advance activity as tolerated. 3. Follow up with primary care physician with labs (renal panel) within one week Discharge Attestations Time Spent in Discharge Care*: greater than 30 min Status at Discharge: Overall status at discharge: patient is progressing back to baseline Quality Metrics Clinical Quality Measures [ No reported AMI, CVA or VTE this stay] Coding Level of Care Code Acute Chg FW DC note Diagnoses Severe sepsis A41.9; R65.20 Urinary retention R33.9 Left hip pain M25.552 Transaminitis R74.01 Thrombocytopenia D69.6 Acute kidney injury N17.9 Hyponatremia E87.1 Debility R53.81 CAD (coronary artery disease) I25.810 Coronary Disease-Associated Artery/Lesion type: bypass graft, autologous artery Associated angina: without angina Hypothyroid E03.9 HTN (hypertension) I10 Hypertension type: essential hypertension Metabolic acidemia E87.20 Hypokalemia E87.6 Hypophosphatasia E83.39 Hypomagnesemia E83.42
[2022-07-26 08:00] VITALS: BP 150/80; PULSE 74; RESP 19; TEMP 36.4; O2SAT 95
[2022-07-26 08:46] VITALS: BP 150/80
[2022-07-26] MEDS: isosorbide mononitrate ER 30 mg Tablet PO (08:46)
[2022-07-26] MEDS: losartan 50 mg Tablet 25 MG PO (08:46)
[2022-07-26] MEDS: ropinirole 0.25 mg Tablet PO (08:46)
[2022-07-26] MEDS: sodium bicarbonate 650 mg Tablet PO (08:46)
[2022-07-26] MEDS: amlodipine 5 mg Tablet 2.5 MG PO (08:46)
[2022-07-26] MEDS: [UNRECOGNIZED DRUG - OTHER] 1 EACH TOPICAL (08:48)
== END 2022-07-26 09:40 | disposition home health service (06) | DRG 872 ==
LOC: ER 14:16 → MEDSURG 19:27
PROVIDERS: Admitting Provider Internal Medicine; Emergency Provider Family Medicine; PCP Family Medicine; Visit Provider Internal Medicine
DX: A41.9 Sepsis, unspecified organism (principal); I25.810 Atherosclerosis of coronary artery bypass graft(s) without angina pectoris; E87.1 Hypo-osmolality and hyponatremia; N39.0 Urinary tract infection, site not specified; E87.20 Acidosis, unspecified; N17.9 Acute kidney failure, unspecified; R65.20 Severe sepsis without septic shock; Z95.1 Presence of aortocoronary bypass graft; I10 Essential (primary) hypertension; E03.9 Hypothyroidism, unspecified; I95.9 Hypotension, unspecified; M25.552 Pain in left hip; D69.6 Thrombocytopenia, unspecified; E87.6 Hypokalemia; E83.42 Hypomagnesemia; R33.9 Retention of urine, unspecified
CPT/HCPCS: 36415; 36416; 51702; 71045; 71250; 73700; 74176; 80053; 80069; 81001; 82962; 83605; 83735; 84100; 84145; 84484; 85007; 85025; 86140; 87040; 87077; 87086; 87150; 87186; 87205; 87641; 93005; 96365; 96372; 96375; 97110; 97116; 97140; 97162; 99285; J1644; J1956; J2185; J2270; J2405; J3475; J7030

== ENCOUNTER 2022-07-29 13:56 | Outpatient (CLI) | payer MEDICARE, SELFPAY ==
[2022-07-29 14:56] LABS: Hematocrit 35.9 % (37.0-47.0); Hemoglobin 11.5 g/dL (11.5-15.3); Mean Corpuscular Hemoglobin 30.7 pg (28.0-34.0); Mean Corpuscular Volume 95.7 fl (81-99); Mean Platelet Volume 10.3 fL (7.4-10.4); Platelet Count 222 10^3/cmm (130-400); Red Blood Count 3.75 10^6/uL (4.1-5.3); Red Cell Distribution Width 14.7 % (12.1-15.1); White Blood Count 14.5 10^3/uL (4.0-10.0)
[2022-07-29 15:18] LABS: Alanine Aminotransferase 20 U/L (0-33); Albumin Level 3.4 g/dL (3.5-5.2); Alkaline Phosphatase 105 U/L (35-105); Aspartate Amino Transferase 20 U/L (0-32); Blood Urea Nitrogen 24 mg/dL (8-23); Calcium 9.9 mg/dL (8.5-10.5); Carbon Dioxide 25 mmol/L (22-29); Chloride 98 mmol/L (98-107); Globulin 3.9 g/dL (1.3-4.6); Glucose 91 mg/dL (65-115); Osmolality Calculated 280 mOsm/kg (285-295); Sodium 133 mmol/L (136-145); Total Bilirubin 0.5 mg/dL (0.15-1.2); Total Protein 7.3 g/dL (6.6-8.7)
[2022-07-29 15:38] LABS: Slide Review Slide Review Perform
[2022-07-29 15:39] LABS: Pathology Refferal Yes
[2022-07-29 15:40] LABS: Total Cells Counted 100 (0-100)
[2022-07-29 15:55] LABS: Absolute Eosinophils 0.2 10^3/cmm (0.0-0.7); Absolute Segmented Neutrophil 9.4 10/cmm (1.6-7.1); Band Neutrophils Absolute 0.9 10^3/cmm (0.0-1.2); Eosinophils 2 %; Lymphocytes 14 %; Lymphocytes Absolute 2.5 10^3/cmm (1.2-3.4); Monocytes Absolute 0.3 10^3/cmm (0.1-0.6); Segmented Neutrophils 65 %
[2022-07-29 15:56] LABS: Absolute Neutrophil 10.3 10^3/cmm (1.4-6.5); Giant Platelets 1+; Platelet Estimate Normal (Normal)
[2022-07-29 15:58] LABS: Anisocytosis 2+; Hypochromasia Trace; Macrocytosis 2+; Microcytosis 2+; Poikilocytosis 2+; Polychromasia Trace; Smudge Cells Trace; Spherocytes 2+; Target Cells Trace; Tear Drop Cells 1+
== END 2022-07-29 13:57 | disposition home or self-care (01) ==
LOC: LAB 13:57
PROVIDERS: PCP Family Medicine; Visit Provider Family Medicine
DX: Z51.81 Encounter for therapeutic drug level monitoring (principal); A41.9 Sepsis, unspecified organism; E83.42 Hypomagnesemia
CPT/HCPCS: 36415; 80053; 80503; 83735; 85007; 85025; 87040

== ENCOUNTER 2022-07-31 10:27 | Outpatient (CLI) | payer MEDICARE, SELFPAY ==
--- NOTE | 2022-07-31 11:00 | USCV_ITS ---
Daniela Cornelius Age: 77 Gender: F : 1945 Exam Date: 07/31/2022 10:47 Ordering Phys: Omega Woods MD Technologist: Omari Mo Exam Location: [facility] – [place]_ Indication: lt leg swelling PROCEDURES: Venous duplex imaging was performed in only the left lower extremity. The following venous structures were evaluated: common femoral vein, profunda vein, proximal portion of the greater saphenous vein, superficial femoral vein, and the popliteal vein. In addition, the posterior tibial and peroneal trunk were evaluated. FINDINGS: Normal 2-D Doppler and augmentation and compressibility throughout the lower extremity venous structures. Additional imaging through the proximal calf veins also reveals no thrombus. Limited evaluation of the greater saphenous vein is patent with no thrombus.. CONCLUSIONS No evidence of left lower extremity DVT. Demar Barrett MD (Electronically Signed) Final Date: 31 July 2022 13:55 S
== END 2022-07-31 10:28 | disposition home or self-care (01) ==
LOC: RAD 10:33
PROVIDERS: PCP Family Medicine; Visit Provider Family Medicine
DX: M79.605 Pain in left leg (principal); M79.89 Other specified soft tissue disorders
CPT/HCPCS: 93971

== ENCOUNTER → 2022-08-18 11:58 | Outpatient (BNVA) | payer MEDICARE, SELFPAY | PROVIDERS: PCP Family Medicine; Visit Provider Clinical Nurse Specialist Adult Health | DX: R35.0 Frequency of micturition (principal); N30.01 Acute cystitis with hematuria | CPT/HCPCS: 81000; 87077; 87086; 87184 ==

== ENCOUNTER → 2022-08-28 11:02 | Outpatient (BNVA) | payer MEDICARE, SELFPAY | PROVIDERS: PCP Family Medicine; Visit Provider Family Medicine | DX: R30.0 Dysuria (principal); R79.89 Other specified abnormal findings of blood chemistry; Z51.81 Encounter for therapeutic drug level monitoring | CPT/HCPCS: 80503; 81000; 85025; 85651; 86141 ==

== ENCOUNTER → 2022-09-29 13:31 | Outpatient (BNVA) | payer MEDICARE, SELFPAY | PROVIDERS: PCP Family Medicine; Visit Provider Family Medicine Adult Medicine | DX: R39.9 Unspecified symptoms and signs involving the genitourinary system (principal); N39.0 Urinary tract infection, site not specified | CPT/HCPCS: 81000 ==

== ENCOUNTER → 2022-10-13 11:36 | Outpatient (BNVA) | payer MEDICARE, SELFPAY | PROVIDERS: PCP Family Medicine; Visit Provider Internal Medicine Cardiovascular Disease | DX: I25.810 Atherosclerosis of coronary artery bypass graft(s) without angina pectoris (principal); E83.42 Hypomagnesemia; D69.6 Thrombocytopenia, unspecified; I10 Essential (primary) hypertension; Z87.898 Personal history of other specified conditions | CPT/HCPCS: 99214 ==

== ENCOUNTER → 2022-10-26 15:06 | Outpatient (BNVA) | payer MEDICARE, SELFPAY | PROVIDERS: PCP Family Medicine; Visit Provider Family Medicine | DX: R30.0 Dysuria (principal) | CPT/HCPCS: 81000; 87086 ==

== ENCOUNTER → 2022-11-10 13:21 | Outpatient (BNVA) | payer MEDICARE, SELFPAY | PROVIDERS: PCP Family Medicine; Visit Provider Family Medicine | DX: R30.9 Painful micturition, unspecified (principal) | CPT/HCPCS: 81000; 87086 ==

== ENCOUNTER → 2023-01-14 12:12 | Outpatient (BNVA) | payer MEDICARE, SELFPAY | PROVIDERS: PCP Family Medicine; Visit Provider Family Medicine | DX: E53.8 Deficiency of other specified B group vitamins (principal); E03.9 Hypothyroidism, unspecified; Z13.220 Encounter for screening for lipoid disorders; R73.09 Other abnormal glucose; Z51.81 Encounter for therapeutic drug level monitoring | CPT/HCPCS: 80053; 80061; 82607; 83036; 84439; 84443; 85025 ==

== ENCOUNTER → 2023-03-16 16:04 | Outpatient (BNVA) | payer MEDICARE, SELFPAY | PROVIDERS: PCP Family Medicine; Visit Provider Family Medicine | DX: R30.0 Dysuria (principal) | CPT/HCPCS: 81000; 87086 ==

== ENCOUNTER → 2023-04-03 13:33 | Outpatient (BNVA) | payer MEDICARE, SELFPAY | PROVIDERS: PCP Family Medicine; Visit Provider Registered Nurse Neonatal Intensive Care | DX: R30.0 Dysuria (principal) | CPT/HCPCS: 81000; 87086 ==

== ENCOUNTER → 2023-04-07 11:43 | Outpatient (BNVA) | payer MEDICARE, SELFPAY | PROVIDERS: PCP Family Medicine; Visit Provider Internal Medicine Cardiovascular Disease | DX: I10 Essential (primary) hypertension (principal); N39.0 Urinary tract infection, site not specified; R06.02 Shortness of breath | CPT/HCPCS: 99213 ==

== ENCOUNTER → 2023-05-13 11:35 | Outpatient (BNVA) | payer MEDICARE, SELFPAY | PROVIDERS: PCP Family Medicine; Visit Provider Family Medicine | DX: R30.0 Dysuria (principal); R73.09 Other abnormal glucose | CPT/HCPCS: 87086 ==

== ENCOUNTER → 2023-10-05 11:42 | Outpatient (BNVA) | payer MEDICARE, SELFPAY | PROVIDERS: PCP Family Medicine; Visit Provider Internal Medicine Cardiovascular Disease | DX: I10 Essential (primary) hypertension (principal); R07.2 Precordial pain; I25.810 Atherosclerosis of coronary artery bypass graft(s) without angina pectoris; R73.09 Other abnormal glucose | CPT/HCPCS: 99213 ==

== ENCOUNTER 2023-11-10 10:18 | Outpatient (CLI) | payer MEDICARE, SELFPAY ==
--- NOTE | 2023-11-10 11:30 | MM_ITS ---
WS: [id number] BILATERAL SCREENING DIGITAL TOMOSYNTHESIS MAMMOGRAM WITH CAD HISTORY: Screening mammogram COMPARISON: 03/25/2022 and 02/20/2021 Bilateral CC and MLO views with tomosynthesis and synthetic mammography submitted. Computer aided det ection analyzed. Breast composition: There are scattered areas of fibroglandular density. No suspicious masses, microc alcifications or architectural distortion. Biopsy clip lateral RIGHT breast. Benign calcifications. B ilateral arterial calcifications. IMPRESSION: MM/[place] [id number] BI-RADS: 2-Benign FOLLOW UP: 1 Year Follow-up
[2023-11-10 11:34] LABS: Basophils % 0.3 %; Eosinophils # 0.2 10^3/uL (0.0-0.8); Hematocrit 37.6 % (36-47); Lymphocytes # 2.6 10^3/uL (0.8-4.8); Lymphocytes % 34.5 %; Mean Corpuscular HGB Conc 31.9 g/dL (30-55); Mean Corpuscular Hemoglobin 28.4 pg (27-33); Mean Corpuscular Volume 88.9 fl (85-98); Mean Platelet Volume 10.8 fL (7.4-10.4); Monocytes # 0.6 10^3/uL (0.2-0.9); Monocytes % 8.4 %; Neutrophils # 4.05 10^3/uL (1.8-7.7); Neutrophils % 53.1 %; Nucleated Red Blood Cells % 0 %; Platelet Count 175 10^3/cmm (157-399); Red Blood Count 4.23 10^6/uL (3.85-5.65); Red Cell Distribution Width 14.9 % (12.1-15.1); White Blood Count 7.62 10^3/uL (3.29-11.43)
[2023-11-10 11:48] LABS: Estmated Average Glucose 134; Hemoglobin A1C 6.3 % (4.0-6.0)
[2023-11-10 12:19] LABS: Alanine Aminotransferase 26 U/L (0-33); Albumin Level 4.1 g/dL (3.5-5.2); Alkaline Phosphatase 87 U/L (35-105); Anion Gap 16.6 (5-19); Aspartate Amino Transferase 43 U/L (0-32); Blood Urea Nitrogen 20 mg/dL (8-23); Calcium 9.4 mg/dL (8.5-10.5); Carbon Dioxide 21 mmol/L (22-29); Chloride 103 mmol/L (98-107); Chol HDL Ratio 4.34 mg/dL (0.0-4.40); Cholesterol 152 mg/dL (0-200); Globulin 3.2 g/dL (1.3-4.6); Glucose 139 mg/dL (65-115); HDL Cholesterol 35 mg/dL (60-100); LDL Cholesterol Calculated 90 mg/dL (50-129); LDL HDL Ratio 2.57 RATIO (0.00-3.22); Osmolality Calculated 287 mOsm/kg (285-295); Potassium 4.6 mmol/L (3.5-5.1); Sodium 136 mmol/L (136-145); Thyroid Stimulating Hormone 1.74 uIU/mL (0.27-4.20); Total Bilirubin 0.6 mg/dL (0.15-1.2); Total Protein 7.3 g/dL (6.6-8.7); Triglycerides 137 mg/dL (0-150); Vitamin B12 1590 pg/mL (232-1245)
== END 2023-11-10 10:19 | disposition home or self-care (01) ==
LOC: RAD 10:18
PROVIDERS: PCP Family Medicine; Visit Provider Family Medicine
DX: Z12.31 Encounter for screening mammogram for malignant neoplasm of breast (principal); Z00.00 Encounter for general adult medical examination without abnormal findings; R92.323 Mammographic fibroglandular density, bilateral breasts; R92.1 Mammographic calcification found on diagnostic imaging of breast; R73.09 Other abnormal glucose; E53.8 Deficiency of other specified B group vitamins; E03.9 Hypothyroidism, unspecified
CPT/HCPCS: 36415; 77063; 77067; 80053; 80061; 82607; 83036; 84443; 85025

== ENCOUNTER → 2024-03-07 15:05 | Outpatient (BNVA) | payer MEDICARE, SELFPAY | PROVIDERS: PCP Family Medicine; Visit Provider Family Medicine | DX: R30.0 Dysuria (principal); A41.9 Sepsis, unspecified organism | CPT/HCPCS: 81000; 87086 ==

== ENCOUNTER → 2024-03-21 11:09 | Outpatient (BNVA) | payer MEDICARE, SELFPAY | PROVIDERS: PCP Family Medicine; Visit Provider Family Medicine | DX: R30.0 Dysuria (principal); N39.0 Urinary tract infection, site not specified | CPT/HCPCS: 81000; 87086 ==

== ENCOUNTER → 2024-04-10 15:44 | Outpatient (BNVA) | payer MEDICARE, SELFPAY | PROVIDERS: PCP Family Medicine; Visit Provider Family Medicine | DX: R30.0 Dysuria (principal) | CPT/HCPCS: 81000; 87086 ==

== ENCOUNTER → 2024-04-17 16:16 | Outpatient (BNVA) | payer MEDICARE, SELFPAY | PROVIDERS: PCP Family Medicine; Visit Provider Family Medicine | DX: N39.0 Urinary tract infection, site not specified (principal) | CPT/HCPCS: 81000; 87086 ==

== ENCOUNTER → 2024-05-16 15:05 | Outpatient (BNVA) | payer MEDICARE, SELFPAY | PROVIDERS: PCP Family Medicine; Visit Provider Family Medicine | DX: R30.0 Dysuria (principal); N39.0 Urinary tract infection, site not specified | CPT/HCPCS: 81000; 87086 ==

== ENCOUNTER → 2024-06-13 14:16 | Outpatient (BNVA) | payer MEDICARE, SELFPAY | PROVIDERS: PCP Family Medicine; Visit Provider Family Medicine | DX: N39.0 Urinary tract infection, site not specified (principal) | CPT/HCPCS: 81000; 87086 ==

== ENCOUNTER → 2024-08-11 10:28 | Outpatient (BNVA) | payer MEDICARE, SELFPAY | PROVIDERS: PCP Family Medicine; Visit Provider Internal Medicine Cardiovascular Disease | DX: I25.810 Atherosclerosis of coronary artery bypass graft(s) without angina pectoris (principal); R06.02 Shortness of breath; R60.0 Localized edema; I49.3 Ventricular premature depolarization | CPT/HCPCS: 99214 ==

== ENCOUNTER 2024-09-13 12:01 | Outpatient (CLI) | payer MEDICARE, SELFPAY ==
--- NOTE | 2024-09-13 12:00 | USCV_ITS ---
Daniela Cornelius Age: 79 Gender: F : 1945 Exam Date: 09/13/2024 12:13 Ordering Phys: Evan Santana MD ([email or web address]) Technologist: [place] [facility] [place]: BP: 140 / 80 HR: 59 Rhythm: Sinus Technical Quality: Adequate MEASUREMENTS (Male / Female) Normal Values 2D ECHO LVOT Diameter 2.0 cm LV Ejection Fraction MOD 4C 65.1 % LV Ejection Fraction MOD 2C 66.5 % LV Ejection Fraction 2C AL 70.4 % LA Diameter 3.6 cm RA Systolic Volume 4C AL 48.5 ml RA Systolic Volume 4C MOD 46.6 ml LA Sys Volume AL 63.0 cm cubed LA Sys Volume Index AL 32.6 cm cubed/m squared Aorta at Sinotubular Diameter 2.0 cm M-MODE LA Ao Ratio MM 1.6 AV Cusp Separation MM 2.0 cm DOPPLER AV Peak Velocity 128.0 cm/s LVOT Peak Velocity 91.0 cm/s AV Area Cont Eq vti 3.0 cm squared AV Area Cont Eq pk 2.3 cm squared MV Peak Velocity 97.0 cm/s MV Area PHT 2.6 cm squared Mitral E to A Ratio 1.3 TV Peak Velocity 304.5 cm/s TR Peak Velocity 329.5 cm/s TR Peak Gradient 43.4 mmHg TR Mean Velocity 235.0 cm/s TR Mean Gradient 24.7 mmHg TR Velocity Time Integral 90.2 cm TV Peak E Velocity 80.0 cm/s PV Peak Velocity 83.5 cm/s FINDINGS Left Ventricle Normal left ventricular size, systolic function and wall thickness, with no regional wall motion abnormalities. Left ventricular ejection fraction is estimated at 60%. Grade I/IV diastolic dysfunction (abnormal relaxation filling pattern), normal to mildly elevated filling pressures. Right Ventricle The right ventricle is normal in size and function. Right Atrium The right atrium is normal in size. Left Atrium Moderately increased left atrial size. Mitral Valve Moderately thickened mitral valve. Mitral annular calcification. No mitral valve stenosis. Mild-moderate mitral valve regurgitation. Aortic Valve Moderate aortic valve calcification. No aortic valve stenosis. Trace aortic valve regurgitation. Tricuspid Valve Structurally normal tricuspid valve without significant stenosis or regurgitation. Pulmonary artery systolic pressure is normal. Pulmonic Valve Structurally normal pulmonic valve without significant stenosis. There is no pulmonic regurgitation. Pericardium Normal pericardium without effusion. Aorta Normal ascending aorta dimension. IVC The inferior vena cava appears normal. CONCLUSIONS Normal left ventricular size, systolic function and wall thickness, with no regional wall motion abnormalities. Left ventricular ejection fraction is estimated at 60%. Grade I/IV diastolic dysfunction (abnormal relaxation filling pattern), normal to mildly elevated filling pressures. Moderately increased left atrial size. Moderately thickened mitral valve. Mitral annular calcification. No mitral valve stenosis. Mild-moderate mitral valve regurgitation. Moderate aortic valve calcification. No aortic valve stenosis. Trace aortic valve regurgitation. There is no pericardial effusion. Right atrial pressure is around 5 mm of mercury. Evan Santana MD (Electronically Signed) Final Date: 26 September 2024 03:12 S
== END 2024-09-13 12:02 | disposition home or self-care (01) ==
LOC: RAD 12:02
PROVIDERS: PCP Family Medicine; Visit Provider Internal Medicine Cardiovascular Disease
DX: R06.02 Shortness of breath (principal); R60.0 Localized edema; I50.9 Heart failure, unspecified; R93.1 Abnormal findings on diagnostic imaging of heart and coronary circulation; I51.7 Cardiomegaly; I34.81 Nonrheumatic mitral (valve) annulus calcification; I34.0 Nonrheumatic mitral (valve) insufficiency; I70.0 Atherosclerosis of aorta
CPT/HCPCS: 93306

== ENCOUNTER → 2024-09-19 15:36 | Outpatient (BNVA) | payer MEDICARE, SELFPAY | PROVIDERS: PCP Family Medicine; Visit Provider Family Medicine | DX: N39.0 Urinary tract infection, site not specified (principal); I49.3 Ventricular premature depolarization; R42 Dizziness and giddiness | CPT/HCPCS: 87077; 87086; 87184 ==

== ENCOUNTER → 2024-10-05 10:46 | Outpatient (BNVA) | payer MEDICARE, SELFPAY | PROVIDERS: PCP Family Medicine; Visit Provider Family Medicine | DX: E53.8 Deficiency of other specified B group vitamins (principal); E03.9 Hypothyroidism, unspecified; Z13.220 Encounter for screening for lipoid disorders; Z00.00 Encounter for general adult medical examination without abnormal findings; Z51.81 Encounter for therapeutic drug level monitoring | CPT/HCPCS: 80053; 80061; 82306; 82607; 83036; 84439; 84443; 85025 ==

== ENCOUNTER → 2024-10-25 12:29 | Outpatient (BNVA) | payer MEDICARE, SELFPAY | PROVIDERS: PCP Family Medicine; Visit Provider Family Medicine | DX: R30.0 Dysuria (principal) | CPT/HCPCS: 87077; 87086; 87184 ==

== ENCOUNTER → 2024-11-01 14:46 | Outpatient (BNVA) | payer MEDICARE, SELFPAY | PROVIDERS: PCP Family Medicine; Visit Provider Family Medicine | DX: D64.9 Anemia, unspecified (principal) | CPT/HCPCS: 82270 ==

== ENCOUNTER → 2024-11-20 13:19 | Outpatient (BNVA) | payer MEDICARE, SELFPAY | PROVIDERS: PCP Family Medicine; Visit Provider Family Medicine | DX: R30.0 Dysuria (principal) | CPT/HCPCS: 81000; 87086 ==

== ENCOUNTER → 2025-01-08 09:50 | Outpatient (BNVA) | payer MEDICARE, SELFPAY | PROVIDERS: PCP Family Medicine; Visit Provider Podiatrist Foot & Ankle Surgery | DX: M79.671 Pain in right foot (principal); M79.672 Pain in left foot; L60.3 Nail dystrophy; M21.611 Bunion of right foot; M21.612 Bunion of left foot; M20.41 Other hammer toe(s) (acquired), right foot; M20.42 Other hammer toe(s) (acquired), left foot; I73.9 Peripheral vascular disease, unspecified | CPT/HCPCS: 99204 ==

== ENCOUNTER → 2025-02-08 11:13 | Outpatient (BNVA) | payer MEDICARE, SELFPAY | PROVIDERS: PCP Family Medicine; Visit Provider Family Medicine | DX: Z51.81 Encounter for therapeutic drug level monitoring (principal); E55.9 Vitamin D deficiency, unspecified | CPT/HCPCS: 80053; 82306; 85025; 87086 ==

== ENCOUNTER → 2025-02-22 11:13 | Outpatient (BNVA) | payer MEDICARE, SELFPAY | PROVIDERS: PCP Family Medicine; Visit Provider Family Medicine | DX: N39.0 Urinary tract infection, site not specified (principal) | CPT/HCPCS: 81000; 87086 ==

== ENCOUNTER → 2025-03-09 12:04 | Outpatient (BNVA) | payer MEDICARE, SELFPAY | PROVIDERS: PCP Family Medicine; Visit Provider Family Medicine | DX: R30.0 Dysuria (principal) | CPT/HCPCS: 87086 ==

== ENCOUNTER 2025-04-25 13:27 | Outpatient (CLI) | payer MEDICARE, SELFPAY ==
--- NOTE | 2025-04-25 13:35 | MM_ITS ---
WS: [id number] BILATERAL 3D TOMOSYNTHESIS DIGITAL SCREENING MAMMOGRAPHY WITH CAD CLINICAL INFORMATION: SCREENING HISTORY: Screening mammogram. No current complaints. COMPARISON: 2023 TECHNIQUE: Bilateral CC and MLO views. FINDINGS: Scattered fibroglandular densities bilaterally. No suspicious focal mass, asymmetry, calcifications, or architectural distortion. No evidence of malignancy. Vascular calcifications. Biopsy clip RIGHT breast. Incidental punctate calcifications. MM/MM scr tomosynthesis [id number] IMPRESSION: DENSITY: There are scattered areas of fibroglandular density. BI-RADS: 2 - Benign. FOLLOW UP: 1 Year Follow-up Recommend return to annual screening mammography.
== END 2025-04-25 13:28 | disposition home or self-care (01) ==
LOC: RAD 13:29
PROVIDERS: PCP Family Medicine; Visit Provider Family Medicine
DX: Z12.31 Encounter for screening mammogram for malignant neoplasm of breast (principal); R92.323 Mammographic fibroglandular density, bilateral breasts; R92.1 Mammographic calcification found on diagnostic imaging of breast; Z97.8 Presence of other specified devices
CPT/HCPCS: 77063; 77067

== ENCOUNTER → 2025-05-04 12:35 | Outpatient (BNVA) | payer MEDICARE, SELFPAY | PROVIDERS: PCP Family Medicine; Visit Provider Family Medicine | DX: N39.0 Urinary tract infection, site not specified (principal); R30.0 Dysuria | CPT/HCPCS: 81000; 87086 ==

== ENCOUNTER → 2025-05-14 15:57 | Outpatient (BNVA) | payer MEDICARE, SELFPAY | PROVIDERS: PCP Family Medicine; Visit Provider Internal Medicine Cardiovascular Disease | DX: I25.10 Atherosclerotic heart disease of native coronary artery without angina pectoris (principal); I11.0 Hypertensive heart disease with heart failure; I50.9 Heart failure, unspecified; R26.81 Unsteadiness on feet; N39.0 Urinary tract infection, site not specified | CPT/HCPCS: 99214 ==

== ENCOUNTER → 2025-07-18 13:44 | Outpatient (BNVA) | payer MEDICARE, SELFPAY | PROVIDERS: PCP Family Medicine; Visit Provider Family Medicine | DX: R30.0 Dysuria (principal); N39.0 Urinary tract infection, site not specified | CPT/HCPCS: 81000; 87086 ==

== ENCOUNTER 2025-07-26 19:11 | Emergency (ER) | payer MEDICARE, SELFPAY ==
[2025-07-26] VITALS (10 sets, daily range): BP systolic 95–167; BP diastolic 54–97; PULSE 63–77; RESP 18; TEMP 36.9; O2SAT 91–100; BMI 25.0
--- OUTSIDE RECORDS SUMMARY | 2025-07-26 19:26 | XMS_ITS | Encounter Summary ---
Author Organization [facility] Address [address] [place] [address] Care Team Providers Care Operating Room Registered Nurse Name Role Phone Omega Woods MD Primary Care Provider [phone] Encounter Details Date Type Department Care Team (Late st Contact Info) Description 07/30/2009 Ancillary Orders [facility] Imaging External Read [address] [place] [address] Murtaza Araya MD NO ADDRESS ON FILE Screening Mammogram Social History Tobacco Use Types Packs/Day Years Used Date Smoking Tobacco: Never Assessed Comments Unknown Sex and Gender Information Value Date Recorded Sex Assigned at Not on file Legal 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 This examination was reviewed with the aid of a computer-aided detection system(CAD). The breast tissue density is average. No significant new findings since the prior mammogram(s). Procedure Note Sury Gomez MD - 07/31/2009 Bilateral Mammogram Reason for Exam: Screening Comparison: Comparison is made with the prior exam(s) dated 01.24.02 Findings: Bilateral CC and MLO views were obtained. This examination was reviewed with the aid of a computer-aided detectionsystem(CAD). The breast tissue density is average. No significant new findings since the prior mammogram(s). us Murtaza Araya MD MAMMO ORDERABLES Final Result documented in this encounter Visit Diagnoses Diagnosis Screening mammogram Other screening mammogram documented in this encounter Care Teams Operating Room Registered Nurse Relationship Specialty Start Date End Date Omega Woods MD [address] [place] [phone] PCP - General Family Practice 12/30/17 documented as of this encounter
--- OUTSIDE RECORDS SUMMARY | 2025-07-26 19:26 | XMS_ITS | Encounter Summary ---
Author Organization [facility] Address [address] [place] [address] Care Team Providers Care Cutter Head Sharpener Name Role Phone Omega Woods MD Primary Care Provider [phone] Reason for Referral * Radiology Services (Routine) - Closed Specialty Diagnoses / Procedures Referred By Contac t Referred To Contact Radiology Diagnoses Follow-up examination of abnormal mammogram Lump or mass in breast Procedures MAMMO DIAG UNI RIGHT 3D RM W OR WO CAD MAMMO DIAGNOSTIC UNI RIGHT W OR WO CAD Omega Woods MD [address] [place] [address] Phone: tel: fax: [facility] [address] [address] Phone: tel: fax: Referral ID Status Reason Start Date Expiration Date V isits Requested Visits Authorized [id number] Closed [facility] TO SCHEDULE ([facility]) 06/08/2018 07/09/2019 1 1 Encounter Details Date Type Department Care Team (Latest Contact Info) Description 06/08/2018 Ancillary Orders [facility] Pre-Registration [place] CALL TO MAKE APPOINTMENT ONLY [address] [place] [address] Omega Woods MD [address] [place] [address] Follow-up examination of abnormal mammogram; Lump or mass in breast Social History Tobacco Use Types Packs/Day Years Used Date Smoking Tobacco: Never Assessed Comments No Sex and Gender Information Value Date Recorded Sex Assigned at Not on file Legal Sex Female 2:57 AM CLINICAL SOCIAL WORK AIDE Gender Identity Not on file Sexual Orientation Not on file Occupation Industry Job Start Date Job End Date Not on file Not on file Not on file Not on file documented as of this encounter Plan of Treatment Not on file documented as of this encounter Results * MAMMO DIAG UNI RIGHT 3D RM W OR WO CAD (07/04/2018 11:45 AM CLINICAL SOCIAL WORK AIDE) Anatomical Region Laterality Modality Breast Right Mammography 07/04/2018 11:4 5 AM CLINICAL SOCIAL WORK AIDE Impressions 07/04/2018 5:33 PM CLINICAL SOCIAL WORK AIDE : Postbiopsy changes in the 9:00 right breast. No mammographic evidence of malignancy. An additional follow-up is recommended with bilateral diagnostic mammography in 6 months. The patient was given verbal and written results/recommendations. BI-RADS ASSESSMENT: 2 - Benign RECOMMENDATION: Bilateral diagnostic mammography in 6 months [id number] Narrative 07/04/2018 5:33 PM CLINICAL SOCIAL WORK AIDE EXAM: MAMMO DIAG UNI RIGHT 3D RM W OR WO CAD INDICATION: 73-year-old female presents for 6 month follow-up after ultrasound-guided biopsy of a complicated cyst in the right breast at 9:00, 7 cm from the nipple. Pathology was benign and concordant yielding benign breast parenchyma with fibrocystic changes including apocrine metaplasia. She has no current complaints. COMPARISON: Mammogram 12/31/2017, 12/23/2017, 12/14/2017, 11/17/2016, 10/22/2014 MAMMOGRAM TECHNIQUE: 3-D MLO and CC digital tomosynthesis images were acquired. Synthesized 2-D images (C-view) were generated. This digital mammogram was also analyzed by the Computer Aided Detection System (CAD). FINDINGS: There are scattered areas of fibroglandular density. Biopsy marker is identified in the 9:00 right breast. There are no suspicious masses, calcifications, or architectural distortions. us External Provider [facility] MAMMO ORDERABLES Final Res ult documented in this encounter Visit Diagnoses Diagnosis Follow-up examination of abnormal mammogram Abnormal mammogram, unspecified Lump or mass in breast Follow-up examination of abnormal mammogram Abnormal mammogram, unspecified Lump or mass in breast documented in this encounter Care Teams Cutter Head Sharpener Relationship Specialty Start Date End Date Omega Woods MD [address] [place] [phone] PCP - General Family Practice 12/30/17 documented as of this encounter
--- OUTSIDE RECORDS SUMMARY | 2025-07-26 19:26 | XMS_ITS | Encounter Summary ---
Author Organization [facility] Address [address] [place] [address] Care Team Providers Care Automated Weaver Name Role Phone Omega Woods MD Primary Care Provider [phone] Encounter Details Date Type Department Care Team (Late st Contact Info) Description 11/27/2015 Ancillary Orders [facility] External Department [address] [place] [address] Quintin Sun MD [address], [place] [phone] Social History Tobacco Use Types Packs/Day Years Used Date Smoking Tobacco: Never Assessed Comments Unknown Sex and Gender Information Value Date Recorded Sex Assigned at Not on file Legal Sex Female 2:57 AM SHOE STITCHER Gender Identity Not on file Sexual Orientation Not on file Occupation Industry Job Start Date Job End Date Not on file Not on file Not on file Not on file documented as of this encounter Plan of Treatment Not on file documented as of this encounter Visit Diagnoses Not on filedocumented in this encounter Care Teams Automated Weaver Relationship Specialty Start Date End Date Omega Woods MD [address] [place] [phone] PCP - General Family Practice 12/30/17 documented as of this encounter
--- OUTSIDE RECORDS SUMMARY | 2025-07-26 19:26 | XMS_ITS | Encounter Summary ---
Author Organization [facility] Address [address] [place] [address] Care Team Providers Care Wheel And Axle Inspector Name Role Phone Omega Woods MD Primary Care Provider [phone] Encounter Details Date Type Department Care Team (Late st Contact Info) Description 11/22/2001 Outpatient Historical [facility] OBGYN-[facility] [place] Ag [address] [place] [phone] Dafne Hitchcock MD [address] [facility] [place] [address] Gynecologic examination (Primary Dx); SCREENING MAL NEOP-RECTUM Social History Tobacco Use Types Packs/Day Years Used Date Smoking Tobacco: Never Assessed Comments Unknown Sex and Gender Information Value Date Recorded Sex Assigned at Not on file Legal Sex Female 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
--- OUTSIDE RECORDS SUMMARY | 2025-07-26 19:26 | XMS_ITS | Data Portability ---
Author Organization [facility] Address [address] [address] Care Team Providers Care Etl Database Developer Name Role Phone MAISHA PATEL Primary Care Provider Assessment Encounter Date Assessment Date Assessment LastModified by Organization Details LastModified Time 11/06/2023 11/06/2023 Patient presents with symptoms of UTI. Results of dipstick were positive for UTI. Advised to drink clear fluids, Tylenol for pain and take prescribed medications as instructed. Patient encouraged to follow up within 1 week if not improving. [email or web address] Not available 11/06/2023 11:28:11 Plan of Treatment Reminders Order Date Submit Date Provider Last Modified By Organization Details Last Modified Time Details Appointments None recorded. Lab culture, urine 2024 025 [employer] [facility], [address] [place] [address], [facility] [address] [place], [address], 15:20:15 urinalysis, dipstick [email or web address] [facility] ([facility]), [address] [place] [address], [address], 5 09:31:29 urinalysis, dipstick 2023 024 [facility] ([facility]), [address] [place] [address], [address], 4 12:37:31 culture, urine 2023 024 [employer] [facility], [address] [facility] [address], [place], [address], 4 22:15:37 urinalysis, dipstick [email or web address] [facility] ([facility]), [address] [place], [address], 4 10:38:28 culture, urine 2023 024 [employer] [facility], [address], [place], [address], 4 07:17:02 culture, urine 2023 024 [employer] [facility], [address] [facility] , [address], [place], [address], 4 23:20:45 urinalysis, dipstick [email or web address] [facility] ([facility]), [address] [place], [address], 4 12:03:10 Referral None recorded. Procedures None recorded. Surgeries None recorded. Imaging None recorded. Medication Orders ciprofloxac in 500 mg tablet 2024 025 [facility][id number], [address] [place] [address], [address], [place], [address], 5 05:01:54 cephalexin 500 mg capsule 2024 025 [facility], [address] [place] [address], [facility] [address], [address], 5 05:01:24 mupirocin 2 % topical ointment 2024 025 [facility], [address] [place] [address], [facility] 3, [place], [address], 5 11:17:45 Diflucan 150 mg tablet 2023 024 [facility], [address] [place] [address], [address], [address], 5 11:30:18 cephalexin 500 mg capsule 2023 024 [facility], [address] [place] [address], [place] [address], [place], [address], 5 05:01:24 Macrobid 100 mg capsule 2023 024 [facility], [address] [place] [address], [address], [address], 5 05:01:54 Patient TargetsNo targets recorded. Patient Instructions Encounter Date Encounter Id Patient Instructions Last Modified By Organization Details Last Modified Time 06/16/2025 [id number] Increase fluids and follow up for worsening [email or web address] Not available 06/17/2025 08:46:12 Reason for Referral None Reported. Results Created Date Observation Date Name Description Value Unit Range Abnormal Flag Note LastModifiedBy Organization Detail LastModifiedTime 11/07/1911/07/2023 CULTU RE, URINE , ROUTI NE culture, urine, routine SEE NOTE CULTU RE, URINE , ROUTI NE Micro Numbe r: [id number] Test Statu s: Final Speci men Sourc e: Not given Speci men Quali ty: Adequ ate Resul t: Mixed genit al chester isola obdulia. These super ficia l bacte jeremy are not indic ative of a urina ry tract infec tion. No furth er organ ism ident ifica tion is warra nted on this speci men. If clini lai indic ated, recol lect clean -catc h, mid-s tream urine and trans vivian immed iatel y to Urine Cultu re Trans port Tube. NO COLLE CTION DATE RECEI SID. WE HAVE USED THE DATE THE SPECI MEN WAS RECEI SID BY THIS LABOR ATORY THE COLLE CTION DATE. IF THIS IS INCOR RECT, PLEAS E CONTA CT CLIEN T SERVI FRANCISCO. PHONE NUMBE R: [phone] 78 Not Available [facility] [address] [address] , [place], [address], 11/07/2023 23:20:45 06/18/20 25 06/18/2025 CULTU RE, URINE , ROUTI NE culture, urine, routine SEE NOTE abnormal CULTU RE, URINE , ROUTI NE Micro Numbe r: [id number] Test Statu s: Final Speci men Sourc e: Not given Speci men Quali ty: Adequ ate Resul t: Great er than 100,0 00 CFU/m L of Esche carlos manuel a coli Comme nt: No colle ction date was provi ded. The speci men is gener ally defin ed as stabl e up to 48 hours . The resul t(s) need( s) to be inter prete d cauti ously . Clini copat holog ic corre latio n is requi red. Repea t testi ng is recom elif d as clini lai indic ated. [employer]ust[employer] Servi ce is avail able with quest ions or comme nts based on your area of inter est: 866-M SHAWN T ([phone]) E.col i ----- ----- ----- - INT ALEC AMOX/ CLAVU LANAT E I 16 AMP/S ULBAC FERRER I 16 CEFAZ SHERIF I 4 CEFEP PENNY S <=0.1 2 CEFTA ZIDIM E S <=0.5 CEFTR IAXON E S <=0.2 5 CIPRO FLOXA DAKOTA R >=4 GENTA MICIN S <=1 IMIPE NEM S <=0.2 5 LEVOF LOXAC IN R >=8 MEROP ENEM S <= 0.25 NITRO FURAN TOIN S <=16 PIP/T AZOBA CTAM S <=4 TRIME THOPR IM/BOBO LFA S <=20 S = Susce ptibl e I = Inter media te R = Resis tant NS = Not susce ptibl e SDD = Susce ptibl e Dose Depen dent * = Not Teste d NR = Not Repor obdulia NN = See Thera py Comme nts NO COLLE CTION DATE RECEI SID. WE HAVE USED THE DATE THE SPECI MEN WAS RECEI SID BY THIS LABOR ATORY THE COLLE CTION DATE. IF THIS IS INCOR RECT, PLEAS E CONTA CT CLIEN T SERVI FRANCISCO. PHONE RAFAELE R: [phone] [phone] 78 Not Available [facility] [facility] [address] [place], [address], 06/18/2025 15:20:15 11/06/19 24 11/06/2023 urina lysis , dipst ick Leukocytes Small Not Available [facility] ([facility]) [address] [place] [address], [address], 11/06/2023 10:38:10 11/06/19 24 11/06/2023 urina lysis , dipst ick Nitrite negati ve Not Available [facility] ([facility]) [address] [place], [address], 11/06/2023 10:38:10 11/06/19 24 11/06/2023 urina lysis , dipst ick Urobilinogen .2 Not Available [facility] ([facility]) [address] [place], [address], 11/06/2023 10:38:10 11/06/19 24 11/06/2023 urina lysis , dipst ick Protein Negati ve Not Available [facility] ([facility]) [address] [place], [address], 11/06/2023 10:38:10 11/06/19 24 11/06/2023 urina lysis , dipst ick pH 7.0 Not Available [facility] ([facility]) [address] [place], [address], 11/06/2023 10:38:10 11/06/19 24 11/06/2023 urina lysis , dipst ick Blood Non-He molyze d: Trace Not Available [facility] ([facility]) [address] [place], [address], 11/06/2023 10:38:10 11/06/19 24 11/06/2023 urina lysis , dipst ick Specific [place] 1.015 Not Available [facility] ( [facility]) [address] [place], [address], 11/06/2023 10:38:10 11/06/19 24 11/06/2023 urina lysis , dipst ick Ketone Negati ve Not Available [facility] ([facility]) [address] [place], [address], 11/06/2023 10:38:10 11/06/19 24 11/06/2023 urina lysis , dipst ick Bilirubin Negati ve Not Available [facility] ([facility]) [address] [place], [address], 11/06/2023 10:38:10 11/06/19 24 11/06/2023 urina lysis , dipst ick Glucose Negati ve Not Available [facility] ([facility]) [address] [place], [address], 11/06/2023 10:38:10 11/06/19 24 11/06/2023 urina lysis , dipst ick Appearance Clear Not Available [facility] ( [facility] [address] [place], [address], 11/06/2023 10:38:10 11/06/19 24 11/06/2023 urina lysis , dipst ick Color Yellow Not Available [facility] ([facility]) [address] [place], [address], 11/06/2023 10:38:10 01/07/20 24 01/08/2024 CULTU RE, URINE , ROUTI NE culture, urine, routine SEE NOTE CULTU RE, URINE , ROUTI NE Micro Numbe r: [id number] Test Statu s: Final Speci men Sourc e: Urine , clean catch Speci men Quali ty: Adequ ate Resul t: Mixed genit al chester isola obdulia. These super ficia l bacte jeremy are not indic ative of a urina ry tract infec tion. No furth er organ ism ident ifica tion is warra nted on this speci men. If clini lai indic ated, recol lect clean -catc h, mid-s tream urine and trans vivina immed iatel y to Urine Cultu re Trans port Tube. Not Available [facility] [address] [place], [address], 01/08/2024 21:33:59 01/07/20 24 01/07/2024 urina lysis , dipst ick Leukocytes Large Not Available [facility] ( [facility]) [address] [place] [address], [address], 01/07/2024 10:02:14 01/07/20 24 01/07/2024 urina lysis , dipst ick Nitrite negati ve Not Available [facility] ([facility]) [address] [place] [address], [address], 01/07/2024 10:02:14 01/07/20 24 01/07/2024 urina lysis , dipst ick Urobilinogen .[address] [facility] ([facility]) [address] [place] [address], [address], 01/07/2024 10:02:14 01/07/20 24 01/07/2024 urina lysis , dipst ick Protein Negati ve Not Available [facility] ([facility]) [address] [place] [address] [place], [address], 01/07/2024 10:02:14 01/07/20 24 01/07/2024 urina lysis , dipst ick pH 7.0 Not Available [facility] ([facility]) [address] [place], [address], 01/07/2024 10:02:14 01/07/20 24 01/07/2024 urina lysis , dipst ick Blood Modera te Not Available [facility] ([facility]) [address] [place], [address], 01/07/2024 10:02:14 01/07/20 24 01/07/2024 urina lysis , dipst ick Specific [place] 1.015 Not Available [facility] ( [facility]) [address] [place], [address], 01/07/2024 10:02:14 01/07/20 24 01/07/2024 urina lysis , dipst ick Ketone Negati ve Not Available [facility] ([facility]) [address] [place], [address], 01/07/2024 10:02:14 01/07/20 24 01/07/2024 urina lysis , dipst ick Bilirubin Negati ve Not Available [facility] ([facility]) [address] [place], [address], 01/07/2024 10:02:14 01/07/20 24 01/07/2024 urina lysis , dipst ick Glucose Negati ve Not Available [facility] ([facility]) [address] [place], [address], 01/07/2024 10:02:14 01/07/20 24 01/07/2024 urina lysis , dipst ick Appearance Clear Not Available [facility] [address] [place], [address], 01/07/2024 10:02:14 01/07/20 24 01/07/2024 urina lysis , dipst ick Color Yellow Not Available [facility] ([facility]) [address] [place], [address], 01/07/2024 10:02:14 01/26/20 24 01/27/2024 CULTU RE, URINE , ROUTI NE culture, urine, routine SEE NOTE CULTU RE, URINE , ROUTI NE Micro Numbe r: [id number] Test Statu s: Final Speci men Sourc e: Urine Speci men Quali ty: Adequ ate Resul t: Less than 10,00 0 CFU/m L of singl e Gram negat beth organ ism isola obdulia. No furth er testi ng will be perfo rmed. If clini lai indic ated, recol lecti on using a metho d to minim ize conta minat ion, with promp t trans vivian to Urine Cultu re Trans port Tube, is recom elif d. Not Available [place] [address] [place], [address], 01/27/2024 22:15:37 01/26/20 24 01/26/2024 urina lysis , dipst ick Leukocytes Negati ve Not Available [facility] ([facility]) [address] [place], [address], 01/26/2024 12:20:04 01/26/20 24 01/26/2024 urina lysis , dipst ick Nitrite negati ve Not Available [facility] ([facility]) [address] [place], [address], 01/26/2024 12:20:04 01/26/20 24 01/26/2024 urina lysis , dipst ick Urobilinogen .[address] [facility] ([facility]) [address] [place], [address], 01/26/2024 12:20:04 01/26/20 24 01/26/2024 urina lysis , dipst ick Protein Negati ve Not Available [facility] ([facility]) [address] [place], [address], 01/26/2024 12:20:04 01/26/20 24 01/26/2024 urina lysis , dipst ick pH 5.5 Not Available [facility] ([facility]) [address] [place], [address], 01/26/2024 12:20:04 01/26/20 24 01/26/2024 urina lysis , dipst ick Blood Negati ve Not Available [facility] ([facility]) [address] [place], [address], 01/26/2024 12:20:04 01/26/20 24 01/26/2024 urina lysis , dipst ick Specific [place] 1.020 Not Available [facility] ( [facility]) [address] [place], [address], 01/26/2024 12:20:04 01/26/20 24 01/26/2024 urina lysis , dipst ick Ketone Negati ve Not Available [facility] ([facility]) [address] [place], [address], 01/26/2024 12:20:04 01/26/20 24 01/26/2024 urina lysis , dipst ick Bilirubin Negati ve Not Available [facility] ([facility]) [address] [place], [address], 01/26/2024 12:20:04 01/26/20 24 01/26/2024 urina lysis , dipst ick Glucose Negati ve Not Available [facility] ([facility]) [address] [place], [address], 01/26/2024 12:20:04 01/26/20 24 01/26/2024 urina lysis , dipst ick Appearance Clear Not Available [facility] ([facility]) [address] [place], [address], 01/26/2024 12:20:04 01/26/20 24 01/26/2024 urina lysis , dipst ick Color Yellow Not Available [facility] ([facility]) [address] [place], [address], 01/26/2024 12:20:04 06/16/20 25 06/16/2025 urina lysis , dipst ick Color Dark Yellow Not Available [facility] ([facility]) [address] [place], [address], 06/16/2025 11:46:52 06/16/2006/16/2025 urina lysis , dipst ick Appearance Cloudy Not Available [facility] ([facility]) [address] [place], [address], 06/16/2025 11:46:52 06/16/2006/16/2025 urina lysis , dipst ick Leukocytes Large Not Available [facility] ([facility]) [address] [place], [address], 06/16/2025 11:46:52 06/16/2006/16/2025 urina lysis , dipst ick Nitrite negati ve Not Available [facility] ([facility]) [address] [place], [address], 06/16/2025 11:46:52 06/16/20 25 06/16/2025 urina lysis , dipst ick Urobilinogen .2 Not Available [facility] ([facility]) [address] [place], [address], 06/16/2025 11:46:52 06/16/2006/16/2025 urina lysis , dipst ick Protein 100 Not Available [facility] ([facility]) [address] [place], [address], 06/16/2025 11:46:52 06/16/2006/16/2025 urina lysis , dipst ick pH 5.5 Not Available [facility] ([facility]) [address] [place], [address], 06/16/2025 11:46:52 06/16/2006/16/2025 urina lysis , dipst ick Blood Modera te Not Available [facility] ([facility]) [address] [place], [address], 06/16/2025 11:46:52 06/16/2006/16/2025 urina lysis , dipst ick Specific [place] 1.[address] [facility] ( [facility]) [address] [place], [address], 06/16/2025 11:46:52 06/16/2006/16/2025 urina lysis , dipst ick Ketone Negati ve Not Available [facility] ([facility]) [address] [place], [address], 06/16/2025 11:46:52 06/16/2006/16/2025 urina lysis , dipst ick Bilirubin Negati ve Not Available [facility] ([facility]) [address] [place], [address], 06/16/2025 11:46:52 06/16/2006/16/2025 urina lysis , dipst ick Glucose Negati ve Not Available [facility] ([facility]) [address] [place], [address], 06/16/2025 11:46:52 Result Notes None recorded. Problems Name Problem SNOMED Code Status Onset Date Resolution Date Notes Provider Name and Address Organization Details Recorded Time Benign hypertension 89342468 Active 2021 HTN; 8:43AM by Elisa Smith, Office Visit; Promote d; acuity set as *; Not Available [facility] 3 03:10:32 Backache 673053503 Active 2021 Back pain; 8:43AM by Elisa Smith, Office Visit; Promote d; acuity set as *; Not Available [facility] 3 03:10:32 Problem Notes None recorded. Medical Equipment None Reported. Allergies Allergen ID Allergen Name Allergen Category Reaction Reaction Severity Criticality Documentation Date Start Date Code Code System Note Provider Name and Address Organization Details Recorded Time 64815 Product containin g penicilli n (product) medicatio n rash moderate low 03/27/2023 48790 8001 SNOMED Anh Hanna [facility] 4 11:02:20 36081 Substance with sulfonami de structure and antibacte rial mechanism of action (substanc e) medicatio n rash mild low 11/06/2023 64063 8003 SNOMED LUDYYULIANA SCHMIDT [facility] 5 10:16:52 Medications Name Sig Start Date Stop Date Status Note LastModified by Organization Details LastModified Time tolmetin 600 mg tablet QD active Not Available Not Available Not Available oxybutyni n chloride ER 10 mg tablet,ex tended release 24 hr Take 1 tablet every day by oral route. active Not Available Not Available No t Available Diflucan 150 mg tablet Take 1 tablet every week by oral route. 12/23 completed Not Available Not Available Not Available ciproflox acin 500 mg tablet Take 1 tablet every 12 hours by oral route with meal(s) for 7 days. 06/30 completed Not Available Not Available Not Available cephalexi n 500 mg capsule Take 1 capsule twice a day by oral route for 7 days. 01/06 completed Not Available Not Available Not Available Macrodant in 50 mg capsule Take 1 capsule every day by oral route. 06/16 completed Not Available Not Available Not Available mupirocin 2 % topical ointment APPLY A SMALL AMOUNT TO THE AFFECTED AREA BY TOPICAL ROUTE 3 TIMES PER DAY 2024 active Not Available Not Available Not Avai lable Bactrim DS 800 mg-160 mg tablet BID 11/05 completed Recorded 12/29/19 22 1:11PM by Nehemias Frost, Office Visit; Not Available Not Available Not Available nitrofura ntoin monohydra te/macroc rystals 100 mg capsule Take 1 capsule every 12 hours by oral route for 5 days. 06/30 completed Not Available Not Available Not Available cranberry 450 mg tablet Take by oral route. active Not Available Not Available No t Available hydrochlo rothiazid e QD 12/23 completed Not Available Not Available Not Available amlodipin e active Not Available Not Available Not Available lisinopri l QD 12/23 completed Not Available Not Available Not Available Cenestin QD 11/05 completed 0; Recorded 07/22/20 22 8:43AM by Elisa Smith, Office Visit; Not Available Not Available Not Available Azo active Not Available Not Availa ble Not Available ProAir HFA 90 mcg/actua tion aerosol inhaler every four hours, as needed 2021 active Not Available Not Available Not Avai lable Azo Vag[facility] Probiotic 5 billion cell capsule Take by oral route. active Not Available Not Available No t Available Vitals Date Recorded Body height Body mass index (BMI) Body weight Oxygen saturation Heart rate Respiratory rate Body temperature Systolic And Diastolic Provider Name and Address Organization Details Last Updated DateTime 165.1 cm 29.2 kg/m2 43655.8 2 g 97 % 66 /min 17 /min 97.1 [degF] 164/106 mm[Hg] Anh Hanna [facility] 4 11:02:02 Date Recorded Body height Body mass index (BMI) Body weight Body temperature Respiratory rate Heart rate Oxygen saturation Systolic And Diastolic Provider Name and Address Organization Details Last Updated DateTime 5 165.1 cm 29.3 kg/m2 53466.6 6 g 98.1 [degF] 17 /min 70 /min 97 % 140/82 mm[Hg] LUDY SCHMIDT [facility], [facility] 5 10:16:17 Date Recorded Body height Body mass index (BMI) Body weight Oxygen saturation Heart rate Respiratory rate Body temperature Systolic And Diastolic Provider Name and Address Organization Details Last Updated DateTime 4 165.1 cm 30 kg/m2 97816.6 3 g 99 % 67 /min 16 /min 97.7 [degF] 162/88 mm[Hg] Anh Hanna [facility], [facility] 4 10:13:24 Date Recorded Body height Body mass index (BMI) Body weight Oxygen saturation Heart rate Respiratory rate Body temperature Systolic And Diastolic Provider Name and Address Organization Details Last Updated DateTime 4 165.1 cm 29.9 kg/m2 28156.8 3 g 97 % 94 /min 16 /min 98.2 [degF] 180/88 mm[Hg] Qian Pedersen [facility] 4 12:30:11 Date Recorded Body height Body mass index (BMI) Body weight Respiratory rate Oxygen saturation Heart rate Body temperature Systolic And Diastolic Provider Name and Address Organization Details Last Updated DateTime 5 165.1 cm 27.1 kg/m2 58845.5 6 g 20 /min 97 % 70 /min 98.2 [degF] 122/76 mm[Hg] SOFIYA HERNANDEZ [facility], [facility] 5 12:10:15 Social History Question Answer Notes LastModified by Organizat ion Details LastModified Time Tobacco Smoking Status Never Smoker Anh Hanna [facility], [facility] 01/07/2024 10:07:53 What Was The Date Of Your Most Recent Tobacco Screening? 06/16/2025 Information not available 06/16/2025 Sex: Unknown Functional Status Question Answer Note LastModified by Organizat ion Details LastModified Time Do you use any illicit or recreational drugs? No Information not available 01/07/2024 Do you or have you ever used any other forms of tobacco or nicotine? No Information not available 06/16/2025 What is your level of alcohol consumption? None Information not available 01/07/2024 Mental Status None recorded. Family History Nothing Reported. Medical History Condition Response Coronary Artery Disease N Other N Gout N Kidney Stones N Blood Diseases N Hyperthyroidism N Breast Cancer N Blood Transfusion N Hypothyroidism N Lung Disease N COPD N Depression N Defects or Inherited Disease N Developmental or Behavioral Disorders N Breast Problem N Difficulty Swallowing N Anesthesia Complications N Meniere's disease N Anxiety Disorder N Muscle, Joint, or Bone Problems N Vision or Eye Problems N Arthritis N Infertility N Polyps N Cancer N Stroke N Varicosities N Endometriosis N Bladder or Kidney Problems N High Cholesterol N Liver Disease N Fibromyalgia N Headaches N Kidney Disease N Allergies/Hayfever N Heart Problems N Ear or Hearing Problems N Hospitalizations N Thyroid Problems N GI Problems N ADD/ADHD N Skin Problems N Eating Disorder N Anemia N Constipation N Mental Illness N Ovarian Cancer N Diabetes N Bedwetting N Seizures/Epilepsy N Tuberculosis N Eczema N Diverticulitis N Abuse/Domestic Violence N Asthma N Reflux/GERD N Hepatitis N Heart Disease N Pulmonary Embolism N Chronic Ear Infections N Pre-Eclampsia N Hypertension N Chicken Pox N Autism Spectrum Disorder (ASD) N Osteoporosis N Thrombophilias N Gynecological HistoryNo gynecological history recorded. Obstetrics History GPAL:G 0 P 0 0 0 0 Immunizations Vaccine Type Date Status Note Provider Nam e and Address Organization Details Recorded Time Influenza, split virus, quadrivalent, preservative 3 completed Anh bower [facility] 01/07/2024 10:05:06 Influenza, MDCK, quadrivalent, preservative 0 completed Anh bower [facility] 01/07/2024 10:05:06 COVID-19, mRNA, LNP-S, PF, 30 mcg/0.3 mL dose 1 completed Anh Pliler null, [facility] 01/07/2024 10:05:06 COVID-19, mRNA, LNP-S, PF, 30 mcg/0.3 mL dose 1 completed Anh Pliler null, [facility] 01/07/2024 10:05:06 Hep A, adult 3 completed Anh Pliler null, [facility] 01/07/2024 10:05:06 Hep A, adult 2 completed Anh Pliler null, [facility] 01/07/2024 10:05:06 Influenza, split virus, quadrivalent, PF 0 completed Anh Plmynor null, [facility] 01/07/2024 10:05:06 Past Encounters Encounter ID Performer Location Encounter Start Date Encounter Closed Date Diagnosis/Indication Diagnosis SNOMED-CT Code Diagnosis ICD10 Code Diagnosis IMO Codes Diagnosis Note [id number] MARTIN MCKEON [facility] ([facility]) [address] [place] [phone] 11/06/2023 10:36:43 11/06/2023 11:41:40 Dysuria 47445289 R30.0 Acute urin vicky tract infection 892282047 N39.0 Stop 50mg Macrobid. Start Macrobid 100mg BID x7 days, take as prescribed . Encouraged to increase water intake and decrease caffeine and sugary drinks. If still having symptoms after completion of antibiotic s, recommend a urine re-check. Urine was sent for culture. Will call with culture results. If worsening condition or no improvemen t in 3-5 days, recommend returning for re-evaluat ion. Patient verbalized understand ing. Keep follow up in 2 weeks with urology. [id number] JIM HEBRET [facility] ([facility]) [address] [place] [phone] 01/07/2024 10:00:33 01/07/2024 13:07:23 Dysuria [id number] R30.0 Acute urin vicky tract infection [id number] N39.0 UA results reviewed and discussed with pt. We will start antibiotic s. Pt will increase oral fluids and can use cranberry. Return to office with no improvemen t or any problems. Go to ER with severe worsening or severe problems.W e will obtain urine culture [id number] JIM HEBERT [facility] ([facility]) [address] [place] [address] [phone] 5 01/26/2024 12:18:06 01/26/2024 13:24:05 Dysuria [id number] R30.0 Urine dip is clear. Will wait for urine culture. Vaginal irritation [id number] N89.8 Pt was on antibiotic s recently for a UTI and also takes macrobid daily for her chronic UTI's. Will cover for possible yeast infection while awaiting culture results. [id number] JIM ISRAEL [facility] ([facility]) [address] [place] [address] [phone] 12/23/2024 10:04:44 12/23/2024 15:23:16 Local infection of wound [id number] T14.8XXA L08.9 [id number] Abx as prescribed for superficia l skin infection. Complete full course. Keep site clean and dry. Do not soak in standing water. Wash with antibacter ial soap and running water. Pat dry. RTC with any new or worsening symptoms. [id number] SAVANNA GREWAL APRN [facility] ([facility]) [address] [place] [phone] 5 06/16/2025 11:40:40 06/18/2025 10:18:17 Dysuria [id number] R30.0 [id number] Acute urin vicky tract infection [id number] N39.0 [id number] Health Concerns Section Related Observation LastModified by Organization Detai ls LastModified Time None Recorded Concern Status LastModified by Organization Details LastModified Time None Recorded Advance Directives Directive None Recorded Payers Insurance Date Sequence Insurance Name Policy Number Policy James Covered Member ID James Member ID Guarantor Name 06/16/2025 2 MEDICARE [place]: GOMEZ Cornelius [id number] Daniela Cornelius 06/16/2025 1 [facility] (MEDICARE REPLACEMENT/A DVANTAGE - PPO) [id number] Daniela Cornelius [id number] Daniela Cornelius Notes Date Note Type Note Provider Name and Address Organization Details Recorded Time 11/06/19 24 text/htm l Lower Urinary Tract Symptoms (LUTS)Reported by PatientHPIFor context, patient reportsabnormal voiding frequencyandexcessive fluid intakebut reportschanges in voiding affect quality of lifeandhistory of urinary tract infection. For associated symptoms, patient reportslow back pain,urgency,frequency,dysuria ,vaginal itching or burning,perineal symptoms: pain, andsuprapubic painbut reportsno urine odor. For location, patient reportsbladderandbilateral. For quality, patient reportsdull,tender,aching,cont inuous,pressure, andloss of function. For severity, patient reportsworsening,mild, andmoderate. For onset/timing, patient reportsspontaneous,constant,4- 10 times a day,evening, andnighttime/while sleeping. For duration, patient reportschronic(started a week and a half ago). For alleviating factors, (azo, cranberry pills).ROS as noted in the HPI Patient is an 78 year old female who presents to the walk in clinic today for urinary burning, urgency, and frequency. Patient reports symptoms for 2 days. Patient has chronic bladder infections and does take 50mg Macrobid daily. Reports she has not had issues for over 1 year. Sees urology at [facility]. MARTIN MCKEON [address] [place] [address], [phone], [facility], [place] 11/06/2023 12:03:20 01/07/20 24 text/htm l Lower Urinary Tract Symptoms (LUTS)Reported by PatientHPIFor context, patient reportsabnormal voiding frequencybut reportsdenies excessive fluid intake,changes in voiding affect quality of life, andhistory of urinary tract infection. For associated symptoms, patient reportslow back pain,empties poorly,urgency,frequency,dysur ia,vaginal itching or burning, andperineal symptoms: painbut reportsno fever,no diarrhea,no nausea,no vomiting,no urine odor, andno gross hematuria. For location, patient reportsbladderandbilateral. For quality, patient reportsdull,tender,continuous, pressure, andloss of function. For severity, patient reportsworsening,mild, andmoderate. For onset/timing, patient reportsspontaneousand4-10 times a day. For duration, patient reportschronicand< 1 week. For alleviating factors, patient reportsheat.ROS as noted in the HPI Pt reports symptoms starting approximately a week ago. Reports symptoms would start, she would drink a large amount of water and symptoms would resolve. Needs to have this fixed so she can have a knee replacement. Symptoms include burning when voiding, frequency, urgency, voids small amounts, low back pain. Denies blood in urine, odor. Has used heating pad with no relief. Takes demanos which seems to help with symptoms. Reports having chronic UTIs. [facility] JIM HEBERT [address] [place] [address], [phone], [facility] 01/07/2024 15:35:52 01/26/20 24 text/htm l Lower Urinary Tract Symptoms (LUTS)Reported by PatientHPIFor associated symptoms, patient reportsabdominal painandgroin pain. For location, patient reportsbladder. For quality, patient reportsachingandpressure.ROS as noted in the HPI walk in patientpatient has been having lower bladder pain that started 3 days ago, patient said that she always has urine frequency and is being treated by a urologist for chronic UTI's. JIM HEBERT [address] [place] [address], [phone], [facility] 01/26/2024 15:41:06 12/24/19 25 text/htm l ROS as noted in the HPI Patient has a sore on her bottom. Noticed it after eye surgery, three weeks ago. She's been treating it with hydrocortisone cream but it is not getting better. Area is tender, especially when sitting. Concerned that she had a spider bite in the area. JIM ISRAEL [address] [place], [phone], [facility], [facility]. 12/23/2024 13:34:19 06/16/20 25 text/htm l Lower Urinary Tract Symptoms (LUTS)Reported by PatientHPIFor associated symptoms, patient reportslow back pain,nausea,frequency,dysuria, __ incontinence,urine odor, andpelvic painbut reportsno abdominal pain. For severity, patient reportsmoderate. For onset/timing, patient reportsconstantand4-10 times a day. For duration, patient reportsacuteand< 1 week. For context, patient reportshistory of urinary tract infection.ROS as noted in the HPI walk-in- on over the counter meds SAVANNA GREWAL APRN [address] [place], [phone], [facility] 06/17/2025 08:46:24 OBGyn Episode No OBEpisode recorded.
--- OUTSIDE RECORDS SUMMARY | 2025-07-26 19:26 | XMS_ITS | Encounter Summary ---
Author Organization [facility] Address [address] [place] [address] Care Team Providers Care Contact Lens Molder Name Role Phone Omega Woods MD Primary Care Provider [phone] Reason for Referral * Outpatient Services (Routine) - Closed Specialty Diagnoses / Procedures Referred By Contac t Referred To Contact Diagnoses Other screening mammogram Procedures MAMMO SCREENING BILAT Mady Waters [employer] [address] [place] [address] Phone: tel: fax: Referral ID Status Reason Start Date Expiration Date Visits Re quested Visits Authorized [id number] Closed 08/03/2011 08/02/2012 1 1 ER OUT Encounter Details Date Type Department Care Team (Late st Contact Info) Description 08/03/2011 Ancillary Orders [facility] Imaging External Read [address] [place] [address] Mady Waters [employer] [address] [place] [address] Other screening mammogram Social History Tobacco Use Types Packs/Day Years Used Date Smoking Tobacco: Never Assessed Comments Unknown Sex and Gender Information Value Date Recorded Sex Assigned at Not on file Legal Sex Female 2:57 AM BEATER OUT Gender Identity Not on file Sexual Orientation Not on file documented as of this encounter Plan of Treatment Not on file documented as of this encounter Results * MAMMO SCREENING BILAT (08/03/2011 9:51 AM BEATER OUT) Anatomical Region Laterality Modality Breast Bilateral Mammography Narrative 08/04/2011 4:09 PM BEATER OUT Bilateral Mammogram Reason for Exam: Screening Comparison: Comparison is made with the prior exam(s) dated 07.31.08+30.10 Findings: Bilateral CC and MLO views were obtained. This examination was reviewed with the aid of a computer-aided detection system(CAD). The breast tissue density is average. No significant new findings since the prior mammogram(s). Procedure Note Nick Omalley MD - 08/04/2011 Bilateral Mammogram Reason for Exam: Screening Comparison: Comparison is made with the prior exam(s) dated1.10.07+.30.10 Findings: Bilateral CC and MLO views were obtained. This examination was reviewed with the aid of a computer-aided detectionsystem(CAD). The breast tissue density is average. No significant new findings since the prior mammogram(s). us External Provider [facility] MAMMO ORDERABLES Final Res ult documented in this encounter Visit Diagnoses Diagnosis Other screening mammogram documented in this encounter Care Teams Contact Lens Molder Relationship Specialty Start Date End Date Omega Woods MD [address] [place] [address] PCP - General Family Practice 12/30/17 documented as of this encounter
--- OUTSIDE RECORDS SUMMARY | 2025-07-26 19:26 | XMS_ITS | Encounter Summary ---
Author Organization [facility] Address [address] [place] [address] Care Team Providers Care Silica Mixer Operator Name Role Phone Omega Woods MD Primary Care Provider [phone] Encounter Details Date Type Department Care Team (Late st Contact Info) Description 04/11/1999 Outpatient Historical [facility] OBGYN-Alcaraz Sumner Ag [address] [place] [id number] Dafne Hitchcock MD [address] [facility], [facility] [address] [place] [address] Gynecologic examination (Primary Dx) Social History Tobacco Use Types Packs/Day Years Used Date Smoking Tobacco: Never Assessed Comments Unknown Sex and Gender Information Value Date Recorded Sex Assigned at Not on file Legal Sex Female 2:57 AM ACCESS TECH Gender Identity Not on file Sexual Orientation Not on file documented as of this encounter Plan of Treatment Not on file documented as of this encounter Visit Diagnoses Diagnosis Gynecologic examination- Primary Gynecological examination documented in this encounter Care Teams Silica Mixer Operator Relationship Specialty Start Date End Date Omega Woods MD [address] [place] [address] PCP - General Family Practice 12/30/17 documented as of this encounter
--- OUTSIDE RECORDS SUMMARY | 2025-07-26 19:26 | XMS_ITS | Encounter Summary ---
Author Organization [facility] Address [address] [place] [address] Care Team Providers Care Network Support Administrator Name Role Phone Omega Woods MD Primary Care Provider [phone] Reason for Referral * Outpatient Services (Routine) - Closed Specialty Diagnoses / Procedures Referred By Contac t Referred To Contact Diagnoses Visit for screening mammogram Procedures MAMMO DIGITIZED STUDY Quintin Sun MD [address] [place] [address] Phone: tel: fax: Referral ID Status Reason Start Date Expiration Date Visits Re quested Visits Authorized [id number] Closed 08/02/2012 08/02/2013 1 1 GER FINANCIAL Encounter Details Date Type Department Care Team (Latest Contact Info) Description 08/02/2012 Ancillary Orders [facility] Centralized Scheduling [address] [facility] [address] [place] [address] Quintin Sun MD [address] [place] [address] Visit for screening mammogram Social History Tobacco Use Types Packs/Day Years Used Date Smoking Tobacco: Never Assessed Comments Unknown Sex and Gender Information Value Date Recorded Sex Assigned at Not on file Legal Sex Female 2:57 AM MANAGER FINANCIAL Gender Identity Not on file Sexual Orientation Not on file documented as of this encounter Plan of Treatment Not on file documented as of this encounter Results * MAMMO DIGITIZED STUDY (07/30/2011 4:22 PM MANAGER FINANCIAL) Narrative Sindy Rizo Charlie, RT - 08/02/2012 4:22 PM MANAGER FINANCIAL Order information only. Exam was auto-finalized. Procedure Note Sindy Rizo, RT - 08/02/2012 Order information only. Exam was auto-finalized. Quintin Sun MD DIAGNOSTIC IMAGING ORDERABLES F inal Result documented in this encounter Visit Diagnoses Diagnosis Visit for screening mammogram Other screening mammogram Visit for screening mammogram Other screening mammogram documented in this encounter Care Teams Network Support Administrator Relationship Specialty [place] [address] [place] [phone] PCP - General Family Practice 12/30/17 documented as of this encounter
--- OUTSIDE RECORDS SUMMARY | 2025-07-26 19:26 | XMS_ITS | Encounter Summary ---
Author Organization [facility] Address [address] [place] [address] Care Team Providers Care Personnel Quality Assurance Auditor Name Role Phone Omega Woods MD Primary Care Provider [phone] Reason for Referral * Outpatient Services (Routine) - Closed Specialty Diagnoses / Procedures Referred By Contac t Referred To Contact Diagnoses Visit for screening mammogram Procedures MAMMO DIGITAL SCREEN BILAT Quintin Sun MD [address] [place] [address] Phone: tel: fax: Referral ID Status Reason Start Date Expiration Date Visits Re quested Visits Authorized [id number] Closed 07/20/2012 07/20/2013 1 1 ER/PULLER Encounter Details Date Type Department Care Team (Latest Contact Info) Description 07/20/2012 Ancillary Orders [facility] Centralized Scheduling [address] [facility] [address] [place] [address] Quintin Sun MD [address] [place], [place] [phone] Visit for screening mammogram Social History Tobacco Use Types Packs/Day Years Used Date Smoking Tobacco: Never Assessed Comments Unknown Sex and Gender Information Value Date Recorded Sex Assigned at Not on file Legal Sex Female 2:57 AM PICKER/PULLER Gender Identity Not on file Sexual Orientation Not on file documented as of this encounter Plan of Treatment Not on file documented as of this encounter Results * MAMMO DIGITAL SCREEN BILAT (08/03/2012 11:16 AM PICKER/PULLER) Anatomical Region Laterality Modality Breast Bilateral Mammography Narrative 08/08/2012 12:10 PM PICKER/PULLER Bilateral Mammogram Reason for Exam: Screening Comparison: Comparison is made with prior exam(s). Findings: Bilateral CC and MLO views were obtained. This examination was reviewed with the aid of a computer-aided detection system(CAD). The breast tissue density is average. No significant new findings since the prior mammogram(s). Procedure Note Juli San MD - 08/08/2012 Bilateral Mammogram Reason for Exam: Screening Comparison: Comparison is made with prior exam(s). Findings: Bilateral CC and MLO views were obtained. This examination was reviewed with the aid of a computer-aided detectionsystem(CAD). The breast tissue density is average. No significant new findings since the prior mammogram(s). Quintin Sun MD MAMMO ORDERABLES Final Result documented in this encounter Visit Diagnoses Diagnosis Visit for screening mammogram Other screening mammogram Visit for screening mammogram Other screening mammogram documented in this encounter Care Teams Personnel Quality Assurance Auditor Relationship Specialty Start Date End Date Omega Woods MD [address] [place] [address] PCP - General Family Practice 12/30/17 documented as of this encounter
--- OUTSIDE RECORDS SUMMARY | 2025-07-26 19:26 | XMS_ITS | Encounter Summary ---
Author Organization [facility] Address [address] [place] [address] Care Team Providers Care Lawn Service Worker Name Role Phone Omega Woods MD Primary Care Provider [phone] Encounter Details Date Type Department Care Team (Late st Contact Info) Description 05/27/2018 Ancillary Orders [facility] Pre-Registration [place] CALL TO MAKE APPOINTMENT ONLY [address] [place] [address] Omega Woods MD [address] [place] [address] Abnormal mammogram Social History Tobacco Use Types Packs/Day Years Used Date Smoking Tobacco: Never Assessed Comments No Sex and Gender Information Value Date Recorded Sex Assigned at Not on file Legal Sex Female 2:57 AM LAUNDRY SUPERVISOR Gender Identity Not on file Sexual Orientation Not on file Occupation Industry Job Start Date Job End Date Not on file Not on file Not on file Not on file documented as of this encounter Plan of Treatment Not on file documented as of this encounter Visit Diagnoses Diagnosis Abnormal mammogram Abnormal mammogram, unspecified documented in this encounter Care Teams Lawn Service Worker Relationship Specialty Start Date End Date Omega Woods MD [address] [facility] [place] [address] PCP - General Family Practice 12/30/17 documented as of this encounter
--- OUTSIDE RECORDS SUMMARY | 2025-07-26 19:26 | XMS_ITS | Clinical Summary ---
Author Organization [facility] Address [address] [place] [address] Phone Care Team Providers Care Entry Level Java Developer Name Role Phone Omega Woods MD Primary Care Provider [phone] Allergies Active Allergy Reactions Criticality Noted Date Comments Penicillins Hives High 01/08/2016 Sulfamethoxazole-Trimethoprim Rash Low 2023 Medications dorzolamide HCl/PF (dorzolamide, PF,) 2 % Drops Administer 1 Drop in both eyes 3 times daily as needed. 05/29/20 21 Active timolol hemihydrate (BETIMOL) 0.25% solution Administer 1 Drop in both eyes 2 times daily. 05/29/20 21 Active rOPINIRole (REQUIP) 0.5 mg tablet Take 0.5 mg by mouth daily at bedtime. 01/26/20 24 Active brimonidine (ALPHAGAN) 0.2 % solution Administer 1 Drop in both eyes 2 times daily. 11/25/19 24 Active carboxymethylcel lulose (REFRESH EYE DROPS) 1 % solution Administer 2 Drops in both eyes 2 times daily as needed for Discomfort. Active losartan (COZAAR) 100 mg tablet Take 100 mg by mouth daily. 12/10/19 24 Active levothyroxine 50 mcg tablet Take 50 mcg by mouth daily. 12/30/19 24 Active metoprolol tartrate (LOPRESSOR) 50 mg tablet Take 50 mg by mouth 2 times daily. 11/11/19 24 Active gabapentin (NEURONTIN) 100 mg capsule Take 100 mg by mouth 3 times daily as needed. 12/15/19 24 Active isosorbide mononitrate (IMDUR) 30 mg Extended Release 24 hour tablet Take 30 mg by mouth 2 times daily. 01/19/20 24 Active dorzolamide-jaxon loL (COSOPT) 22.3-6.8 mg/mL solution Administer 1 Drop in both eyes 3 times daily as needed. 03/13/20 24 Active furosemide (LASIX) 40 mg tablet Take 40 mg by mouth daily. 03/14/20 24 Active amLODIPine (NORVASC) 5 mg tablet Take 5 mg by mouth 1 time daily as needed. For Systolic BP > 160 02/11/20 24 Active latanoprost (XALATAN) 0.005 % solution Administer 1 Drop in both eyes daily. 03/04/20 24 Active MAGNESIUM ORAL Take 1 Tablet by mouth daily. Active tolterodine (DETROL) 2 mg tabletIndication s:Bladder spasms Take 1 Tablet (2 mg) by mouth 2 times daily. 60 Tablet 1 04/19/20 24 Active polyethylene glycol 3350 (Miralax) 17 gram/dose Powder Take 1 Scoop (17 Grams) by mouth daily. Dissolve in 8 ounces of fluid and drink entire liquid 510 Gram 4 10:29 AM CDT 04/26/20 24 Active traMADoL (ULTRAM) 50 mg tabletIndication s:Status post total left knee replacement Take 1 Tablet (50 mg) by mouth every 6 hours as needed for Pain. 28 Tablet 4 10:29 AM CDT 04/26/20 24 Active Additional Information Patient not taking.Reported on 02/01/2025 celecoxib (CeleBREX) 100 mg capsule Take 100 mg by mouth. 12/14/19 25 Active mupirocin (BACTROBAN) 2 % Ointment Apply to affected area. 12/24/19 25 Active omeprazole (PriLOSEC) 40 mg Capsule, Delayed Release(E.C.) Take 40 mg by mouth daily. 11/02/19 25 Active ofloxacin (OCUFLOX) 0.3 % solution by See Admin Instructions route see administration instructions. 12/21/19 25 Active prednisoLONE acetate (PRED FORTE) 1 % suspension Administer 1 Drop in left eye 3 times daily. 11/30/19 25 Active tolmetin (TOLECTIN) 600 mg tablet 600 mg. Active methenamine hippurate (HIPREX) 1 gram TabletIndication s:Recurrent UTI Take 1 Tablet (1,000 mg) by mouth 2 times daily. 180 Tablet 1 01/05/20 25 Active cephALEXin (KEFLEX) 500 mg capsule 12/24/19 25 Active clindamycin HCL (CLEOCIN) 300 mg Capsule 01/07/20 25 Active nitrofurantoin macrocrystaL (MACRODANTIN) 50 mg capsule 12/21/19 25 Active spironolactone (ALDACTONE) 25 mg tablet Take 25 mg by mouth daily. 02/09/20 25 Active fluconazole (DIFLUCAN) 150 mg tabletIndication s:Yeast dermatitis Take 1 Tablet (150 mg) by mouth see administration instructions. Take 1 tablet today and 1 tablet in 72 hours/3 days. 2 Tablet 03/14/20 25 Active estradioL 10 mcg Insert Insert 10 mcg vaginally every Wednesday, Wednesday, and Wednesday. 90 Each 03/28/20 25 Active nystatin (MYCOSTATIN) 100,000 unit/gram CreamIndications :Yeast dermatitis Apply to affected area see administration instructions. Apply 2 times a day as needed to external genitalia until burning resolves. 60 Gram 11 04/05/20 25 Active trospium (SANCTURA) 20 mg Tablet Take 1 Tablet (20 mg) by mouth 2 times daily. 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 Bladder spasms 04/19/2024 Tinea versicolor 04/19/2024 Stage 3a chronic kidney disease 04/19/2024 Lower leg edema 04/19/2024 Frequent UTI 04/19/2024 Status post total left knee replacement 02/16/20 24 Primary osteoarthritis of left knee 01/27/2024 Restless leg syndrome 01/27/2024 Hypothyroidism 01/27/2024 GERD (gastroesophageal reflux disease) Anemia 01/27/2024 Hyperkalemia 01/27/2024 Elevated AST (SGOT) 01/27/2024 Genitourinary syndrome of menopause 10/25/2023 History of recurrent UTIs 10/25/2023 Benign hypertension 06/27/2023 CAD (coronary artery disease) 06/27/2023 BPV (benign positional vertigo) 06/27/2023 Glaucoma 06/27/2023 Resolved Problems Problem Noted Date Diagnosed Date Resolved Date Preoperative general physical examination 01/27/2024 02/16/2024 Encounters Date Type Department Care Team Description 06/27/2025 Orders Only [facility] [place] [address] [place] [address] Quintin Pepe MD History of total left knee replacement (Primary Dx) 06/14/[address] [place] [phone] Joanne Almonte RN Urinary Incontinence 05/15/2025 External Device Data STL ABSTRACTION Provider, Abstract 05/08/2025 Orders Only [facility] [place] [address] [place] [address] Quintin Pepe MD History of total left knee replacement (Primary Dx) 04/26/2025 External Device Data Initial Department [address] [place]: [place] [address] [facility] [place] from Last 3 Months Immunizations Immunization Administration Dates Next Due Hepatitis A Vaccine 01/03/2003,01/05/2002 Family History Medical History Relation Name Comments Heart Disease Father CABG Glaucoma Mother Heart Disease Paternal Grandfather Heart Disease Paternal Grandmother Heart Disease Sister Stents x2 Liver Disease Sister Liver Transpla nt Relation Name Status Comments Brother As An Infant Daughter 1 Alive Daughter 2 Alive Daughter 3 Alive Father Maternal Grandmother Mother Paternal Grandfather Paternal Grandmother Sister Alive Son Alive Social History Tobacco Use Types Packs/Day Years Used Date Smoking Tobacco: Never Smokeless Tobacco: Never Tobacco Cessation:Counseling Given: No Alcohol Use Standard Drinks/Week Comments Not Currently 0 (1 standard drink = 0.6 oz pur e alcohol) Feeling Safe Answer Date Recorded Are you in a relationship wi th someone who hurts you emotionally and/or physically? No 04/26/2024 Food Insecurity Answer Date Recorded Patient needs follow up regardin 12/20/2024 Transportation Needs Answer Date Record ed Patient needs follow up regardin 12/20/2024 Housing Stability Answer Date Recorded Social/Environmental Concerns No concerns Utility Needs Answer Date Recorded Patient needs follow up regardin 12/20/2024 Comments No Sex and Gender Information Value Date Recorded Sex Assigned at Not on file Legal Sex Female 4:32 PM PAIN COORDINATOR Gender Identity Not on file Sexual Orientation Not on file Last Filed Vital Signs Vital Sign Reading Time Taken Comments Blood Pressure 128/78 02/01/2025 11:14 AM CDT Pulse 69 04/27/2024 2:09 PM CDT Temperature 36.6 C (97.9 F) 04/27/2024 2:09 PM CDT Respiratory Rate 16 04/27/2024 2:09 PM CDT Oxygen Saturation 97% 04/27/2024 2:09 PM CDT Inhaled Oxygen Concentration - - Weight 77.1 kg (170 lb) 02/01/2025 11:14 AM CDT Height 165.1 cm (5' 5 ) 02/01/2025 11:14 AM CDT Body Mass Index 28.29 02/01/2025 11:14 AM CDT Plan of Treatment Health Maintenance Due Date Last Done Comments DTAP/TDAP/TD VACCINES (1 - Tdap) 1962 PNEUMOCOCCAL VACCINE 50+ YEA RS (1 of 1 - PCV) 1993 ZOSTER VACCINE (1 of 2) 1993 OSTEOPOROSIS SCREENING 01/18/2008 RSV VACCINE (60+ or ) (1 - 1-dose 75+ series) 2018 INFLUENZA VACCINE (#1) 2025 , 08/05/2020, 09/19/2019 COVID-19 Vaccine (3 - season) 2025, 09/27/2020 Medical Devices Implanted Type Area Munitions Handler Device Identifier Shelf Expiration Date Model / Serial / Lot Lens Io Bi-Aspheric Softechd+21.5 - [id number] Implanted:Qty: 1 on 01/08/2016 by Cornel Galindo MD Eye Right: Eye [employer] 04/09/2020 SOFTECHD+21. 5 / [id number] / Lens Io Bi-Aspheric Softechd+22.5d - [id number] Implanted:Qty: 1 on 03/18/2016 by Cornel Galindo MD Eye Left: Eye [employer] 01/16/2019 SOFTECHD+22. 5D / [id number] / Baseplate Tib Attune Fxd Bearing Sz4 1506-21-004 - [id number] Implanted:Qty: 1 on 04/26/2024 by Quintin Pepe MD at [facility] Knee Left: Knee [employer] [id number] 02/26/2034 1506-21-004 / / [id number] Comp Fem Attune Sz3 Implanted:Qty: 1 on 04/26/2024 by Quintin Pepe MD at [facility] Left: Knee [id number] 02/26/2029 [id number] / / [id number] Tib Attune Lt Knee 5mm Implanted:Qty: 1 on 04/26/2024 by Quintin Pepe MD at [facility] Left: Knee 10/27/2030 [id number] / / [id number] Insurance [facility] [address] RX [employer] RX Member Subscriber Plan / Payer (Ef fective 2024-Present) Name:Daniela Cornelius Relation to Subscriber:Self Name:Daniela Cornelius Subscriber ID:Not on file Payer ID:Not on file Group ID:[id number] Type:RX Medicare Part D Address: [address] Advance Directives For more information, please contact: [phone] * Full Code (Latest Code Status on File) Date Activated Date Inactivated Comments 04/26/2024 1:13 PM 04/27/2024 5:03 PM Care Teams Entry Level Java Developer Relationship Specialty Start Date End Date Omega Woods MD [address] [place] [phone] PCP - General Family Practice 12/30/17
--- OUTSIDE RECORDS SUMMARY | 2025-07-26 19:26 | XMS_ITS | Encounter Summary ---
Author Organization [facility] Address [address] [place] [address] Care Team Providers Care Public Relations Writer Name Role Phone Omega Woods MD Primary Care Provider [phone] Reason for Referral * Outpatient Services (Routine) - Closed Specialty Diagnoses / Procedures Referred By Ivan t Referred To Contact Diagnoses Inconclusive mammogram Procedures MAMMO BREAST US RIGHT LTD Omega Woods MD [address] [place] [address] Phone: tel: [facility] [place] CALL TO MAKE APPOINTMENT ONLY [address] [place] [address] Phone: tel: fax: Referral ID Status Reason Start Date Expiration Date Visits Re quested Visits Authorized [id number] Closed 12/17/2017 2019 1 1 * Outpatient Services (Routine) - Closed Specialty Diagnoses / Procedures Referred By Contac t Referred To Contact Diagnoses Inconclusive mammogram Procedures MAMMO DIAG UNI RIGHT 3D RM W OR WO CAD Omega Woods MD [address] [place] [address] Phone: tel: fax: [employer] [facility] [place] CALL TO MAKE APPOINTMENT ONLY [address] [place] [address] Phone: tel: fax: Referral ID Status Reason Start Date Expiration Date Visits Re quested Visits Authorized [id number] Closed 12/17/2017 2019 1 1 Encounter Details Date Type Department Care Team (Latest Contact Info) Description 12/17/2017 Ancillary Orders [facility] [place] [address] [facility] [address] [place] [address] Omega Woods MD [address] [place] [address] Inconclusive mammogram Social History Tobacco Use Types Packs/Day Years Used Date Smoking Tobacco: Never Assessed Comments No Sex and Gender Information Value Date Recorded Sex Assigned at Not on file 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 A small nodule was identified deep in the lateral right breast projecting slightly above the nipple line. 3D MLO and CC digital tomosynthesis images were acquired and synthesized 2D images (C view) were generated. This digital mammogram was also analyzed by the Computer Aided Detection System (CAD). Right 2-D medial to lateral view was obtained as well. Spot 3-D MLO and craniocaudal tomosynthesis images were obtained as well. There is a 4 to 5 mm round nodule confirmed deep at the 9 to 10:00 position 7 cm from the nipple. Right breast ultrasound: Ultrasound shows a round solid slightly ill-defined complex nodule at the 9:00 position 7 cm from the nipple which corresponds well to the mammographic finding. This is measuring 4 x 4 x 5 mm. This would be considered indeterminate and I would recommend ultrasound-guided needle core biopsy for tissue diagnosis. After the ultrasound I visited with the patient and explained the finding and recommendation. She indicated her understanding. She will be contacted by our biopsy coordinator. I gave her a written report. Impression: I would recommend right ultrasound-guided needle core biopsy as described above. [id number] us External Provider [facility] MAMMO ORDERABLES Final Res ult * (ABNORMAL) MAMMO DIAG UNI RIGHT 3D RM W OR WO CAD (12/23/2017 1:06 PM CDT) Anatomical Region Laterality Modality Breast Right Mammography 12/23/2017 1:07 PM CDT Narrative 12/23/2017 4:23 PM CDT Right additional views and ultrasound 12/23/2017 HISTORY: The patient is 72 years of age and had a screening of 12/14/2017. A small nodule was identified deep in the lateral right breast projecting slightly above the nipple line. 3D MLO and CC digital tomosynthesis images were acquired and synthesized 2D images (C view) were generated. This digital mammogram was also analyzed by the Computer Aided Detection System (CAD). Right 2-D medial to lateral view was obtained as well. Spot 3-D MLO and craniocaudal tomosynthesis images were obtained as well. There is a 4 to 5 mm round nodule confirmed deep at the 9 to 10:00 position 7 cm from the nipple. Right breast ultrasound: Ultrasound shows a round solid slightly ill-defined complex nodule at the 9:00 position 7 cm from the nipple which corresponds well to the mammographic finding. This is measuring 4 x 4 x 5 mm. This would be considered indeterminate and I would recommend ultrasound-guided needle core biopsy for tissue diagnosis. After the ultrasound I visited with the patient and explained the finding and recommendation. She indicated her understanding. She will be contacted by our biopsy coordinator. I gave her a written report. Impression: I would recommend right ultrasound-guided needle core biopsy as described above. [id number] us External Provider [facility] MAMMO ORDERABLES Final Res ult documented in this encounter Visit Diagnoses Diagnosis Inconclusive mammogram Inconclusive mammogram Inconclusive mammogram documented in this encounter Care Teams Public Relations Writer Relationship Specialty Start Date End Date Omega Woods MD [address] [place] [phone] PCP - General Family Practice 12/30/17 documented as of this encounter
--- OUTSIDE RECORDS SUMMARY | 2025-07-26 19:26 | XMS_ITS | Encounter Summary ---
Author Organization [facility] Address [address] [place] [address] Care Team Providers Care Boiler Mechanic Name Role Phone Omega Woods MD Primary Care Provider [phone] Reason for Referral * Outpatient Services (Routine) - Closed Specialty Diagnoses / Procedures Referred By Contac t Referred To Contact Radiology Diagnoses Abnormal findings on diagnostic imaging of breast Procedures MAMMO POST US/STEREO [place] [address] [place], [place] [address] [address] Phone: tel: fax: [facility] [address] [address] Phone: tel: fax: Referral ID Status Reason Start Date Expiration Date Visits Requested Visits Authorized [id number] Closed Ordering Department To Schedule 12/23/2017 01/23/2019 1 1 Electronically signed by [facility], External Provider at 12/23/2017 3:21 PM CDT * Outpatient Services (Routine) - Closed Specialty Diagnoses / Procedures Referred By Contac t Referred To Contact Radiology Diagnoses Abnormal findings on diagnostic imaging of breast Procedures MAMMO BREAST US BIOPSY RIGHT Omega Woods MD [address] [place] [address] Phone: tel: fax: [facility] [address] [address] Phone: tel: fax: Referral ID Status Reason Start Date Expiration Date Visits Requested Visits Authorized [id number] Closed Ordering Department To Schedule 12/23/2017 01/23/2019 1 1 Electronically signed by 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 Gender Identity Not on file Sexual Orientation Not on file Occupation Industry Job Start Date Job End Date Not on file Not on file Not on file Not on file documented as of this encounter Plan of Treatment Not on file documented as of this encounter Results * MAMMO POST US/STEREO GUIDED PROCEDURE RT (12/31/2017 8:43 AM CDT) Anatomical Region Laterality Modality Breast Right Mammography 12/31/2017 8:43 AM CDT Narrative 01/03/2018 2:14 PM CDT RIGHT BREAST ULTRASOUND-GUIDED NEEDLE CORE BIOPSY - 12/31/2017 8:35 AM HISTORY: The patient is 72 years of age and is here for biopsy of a small 5 mm solid appearing nodule at 9:00 on the right. Informed consent was obtained from the patient. She was placed on the ultrasound table, and the right breast was prepped and draped in the usual sterile fashion. The skin and subcutaneous tissue was anesthetized with lidocaine. A small skin ingrid was made with a scalpel. Utilizing a 14-gauge spring-loaded core biopsy needle, a single needle core specimen was obtained. Pre- and post-fire imaging showed that the needle was in accurate position. At that point the nodule completely disappeared consistent with a complicated cyst. The needle was removed, and hemostasis was achieved. A marker clip was placed. Post-clip mammogram views show the clip in appropriate position. Pressure dressing and ice pack were applied. There was no immediate complication. Verbal and written post-procedure instructions were given to the patient, and she was released in good condition. The core needle specimens were sent to surgical pathology. CONCLUSION: Successful ultrasound-guided needle core biopsy on the right as described above. PATHOLOGY RESULTS REVIEWED 01/03/2018: Benign The pathology report from the needle biopsy on the right shows benign breast parenchyma with fibrocystic change including apocrine metaplasia. There was no evidence of atypia or malignancy. That is concordant with the imaging findings. Recommend follow-up right diagnostic mammogram in 6 months time. [id number] us External Provider [facility] MAMMO ORDERABLES Final Res ult * MAMMO BREAST US BIOPSY RIGHT (12/31/2017 8:35 AM CDT) Anatomical Region Laterality Modality Breast Right Ultrasound Tissue SPECIMEN FROM BREAST / Unknown 12/31/2017 8:37 AM CDT Narrative 01/03/2018 2:14 PM CDT RIGHT BREAST ULTRASOUND-GUIDED NEEDLE CORE BIOPSY - 12/31/2017 8:35 AM HISTORY: The patient is 72 years of age and is here for biopsy of a small 5 mm solid appearing nodule at 9:00 on the right. Informed consent was obtained from the patient. She was placed on the ultrasound table, and the right breast was prepped and draped in the usual sterile fashion. The skin and subcutaneous tissue was anesthetized with lidocaine. A small skin ingrid was made with a scalpel. Utilizing a 14-gauge spring-loaded core biopsy needle, a single needle core specimen was obtained. Pre- and post-fire imaging showed that the needle was in accurate position. At that point the nodule completely disappeared consistent with a complicated cyst. The needle was removed, and hemostasis was achieved. A marker clip was placed. Post-clip mammogram views show the clip in appropriate position. Pressure dressing and ice pack were applied. There was no immediate complication. Verbal and written post-procedure instructions were given to the patient, and she was released in good condition. The core needle specimens were sent to surgical pathology. CONCLUSION: Successful ultrasound-guided needle core biopsy on the right as described above. PATHOLOGY RESULTS REVIEWED 01/03/2018: Benign The pathology report from the needle biopsy on the right shows benign breast parenchyma with fibrocystic change including apocrine metaplasia. There was no evidence of atypia or malignancy. That is concordant with the imaging findings. Recommend follow-up right diagnostic mammogram in 6 months time. [id number] us External Provider [facility] MAMMO ORDERABLES Final Res ult documented in this encounter Visit Diagnoses Diagnosis Abnormal findings on diagnostic imaging of breast Other (abnormal) findings on radiological examination of breast Abnormal findings on diagnostic imaging of breast Other (abnormal) findings on radiological examination of breast Abnormal findings on diagnostic imaging of breast Other (abnormal) findings on radiological examination of breast documented in this encounter Care Teams Boiler Mechanic Relationship Specialty Start Date End Date Omega Woods MD [address] [place] [phone] PCP - General Family Practice 12/30/17 documented as of this encounter
--- OUTSIDE RECORDS SUMMARY | 2025-07-26 19:26 | XMS_ITS | Encounter Summary ---
Author Organization [facility] Address [address] [place] [address] Care Team Providers Care Administrative Judge Name Role Phone Omega Woods MD Primary Care Provider [phone] Encounter Details Date Type Department Care Team (Late st Contact Info) Description 01/24/2002 Outpatient Historical [facility] Breast [facility] [address] 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
--- OUTSIDE RECORDS SUMMARY | 2025-07-26 19:26 | XMS_ITS | Continuity of Care Document ---
Author Organization BARBARA - Aparna Ricks, [facility] ([facility]) Address [address] [place] [address] Care Team Providers Care Odd Jobs Day Worker Name Role Phone MAISHA PATEL Primary Care Provider Assessment No assessment recorded. Plan of Treatment Reminders Order Date Submit Date Provider Last Modified By Organization Details Last Modified Time Details Appointments None recorded. Lab culture, urine 2024 E-Sign [facility], [address] [place] [address], [facility] [address] [place], [address], 15:20:15 urinalysis, dipstick [email or web address] [facility] ([facility]), [address] [place], [address], 09:31:29 Referral None recorded. Procedures None recorded. Surgeries None recorded. Imaging None recorded. Medication Orders ciprofloxac in 500 mg tablet 2024 025 [id number], [address] [facility], [facility] [address], [address], 05:01:54 Patient TargetsNo targets recorded. Patient Instructions Encounter Date Encounter Id Patient Instructions Last Modified By Organization Details Last Modified Time 06/16/2025 [id number] Increase fluids and follow up for worsening [email or web address] Not available 06/17/2025 08:46:12 Reason for Referral None Reported. Results Created Date Observation Date Name Description Value Unit Range Abnormal Flag Note LastModifiedBy Organization Detail LastModifiedTime 06/18/2006/18/2025 CULTU RE, URINE , ROUTI NE culture, urine, routine SEE NOTE abnormal CULTU RE, URINE , ROUTI NE Micro Numbe r: [id number] Test Statu s: Final Speci men Sourc [...] area of inter est: 866-M SHAWN T ([phone]) E.col i ----- ----- ----- - INT [...] PLEAS E CONTA CT CLIEN T SERVI RFANCISCO. PHONE NUMBE R: [phone] Not Available [employer] [facility] [address] [place], [address], 06/18/2025 15:20:15 06/16/2006/16/2025 urina lysis , dipst ick Color Dark Yellow Not Available [facility] ([facility]) [address] [place], [address], 06/16/2025 11:46:52 06/16/2006/16/2025 urina lysis , dipst ick Appearance Cloudy Not Available [facility] ([facility]) [address] [place], [address], 06/16/2025 11:46:52 06/16/2006/16/2025 urina lysis , dipst ick Leukocytes Large Not Available [facility] ([facility]) [address] [place], [address], 06/16/2025 11:46:52 06/16/2006/16/2025 urina lysis , dipst ick Nitrite negati ve Not Available [facility] ([facility]) [address] [place], [address], 06/16/2025 11:46:52 06/16/2006/16/2025 urina lysis , dipst ick Urobilinogen .2 Not Available [facility] ([facility]) [address] [place], [address], 06/16/2025 11:46:52 06/16/2006/16/2025 urina lysis , dipst ick Protein 100 Not Available [facility] ([facility]) [address] [place], [address], 06/16/2025 11:46:52 06/16/2006/16/2025 urina lysis , dipst ick pH 5.5 Not Available [facility] ([facility]) [address] [place], [address], 06/16/2025 11:46:52 06/16/2006/16/2025 urina lysis , dipst ick Blood Modera te Not Available [facility] ([facility]) [address] [place], [address], 06/16/2025 11:46:52 06/16/2006/16/2025 urina lysis , dipst ick Specific [place] 1.015 Not Available [facility] ( [facility]) [address] [place], [address], 06/16/2025 11:46:52 06/16/2006/16/2025 urina lysis , dipst ick Ketone Negati ve Not Available [facility] ([facility]) [address] [place], [address], 06/16/2025 11:46:52 06/16/2006/16/2025 urina lysis , dipst ick Bilirubin Negati ve Not Available [facility] ([facility]) [address] [place], [address], 06/16/2025 11:46:52 06/16/2006/16/2025 urina lysis , dipst ick Glucose Negati ve Not Available [facility] ([facility]) [address] [place], [address], 06/16/2025 11:46:52 Result Notes None recorded. Problems Name Problem SNOMED Code Status Onset Date Resolution Date Notes Provider Name and Address Organization Details Recorded Time Benign hypertension 90509956 Active 2021 HTN; 022 8:43AM by Elisa Smith, Office Visit; Promote d; acuity set as *; Not Available [facility] 3 03:10:32 Backache 546682236 Active 2021 Back pain; 022 8:43AM by Elisa Smith, Office Visit; Promote d; acuity set as *; Not Available [facility] 3 03:10:32 Problem Notes None recorded. Medical Equipment None Reported. Allergies Allergen ID Allergen Name Allergen Category Reaction Reaction Severity Criticality Documentation Date Start Date Code Code System Note Provider Name and Address Organization Details Recorded Time 87527 Product containin g penicilli n (product) medicatio n rash moderate low 03/27/2023 37619 8001 SNOMED Anh Hanna [facility] 4 11:02:20 26700 Substance with sulfonami de structure and antibacte rial mechanism of action (substanc e) medicatio n rash mild low 11/06/2023 46057 8003 SNOMED LUDY BRAYAN [facility] 5 10:16:52 Medications Name Sig Start [...] Organization Details Last Updated DateTime 165.1 cm 27.1 kg/m2 67819.5 6 g 20 /min 97 % 70 /min 98.2 [degF] 122/76 mm[Hg] SOFIYA HERNANDEZ [facility] 12:10:15 Social History Question Answer Notes LastModified by Organizat ion Details LastModified Time Tobacco Smoking Status Never Smoker Anh bower [facility] 01/07/2024 10:07:53 What Was The Date Of [...] History Condition Response Coronary Artery Disease N Gout N Other N Blood Diseases N Kidney Stones N Hyperthyroidism N Breast Cancer N Blood Transfusion N Hypothyroidism N Lung Disease N COPD N Depression N Developmental or Behavioral Disorders N Defects or Inherited Disease N Breast Problem N Difficulty Swallowing N Anesthesia Complications N Meniere's disease N Anxiety Disorder N Muscle, Joint, or Bone Problems N Vision or Eye Problems N Arthritis N Polyps N Infertility N Cancer N Varicosities N Stroke N Endometriosis N Bladder or Kidney Problems [...] N Heart Disease N Pulmonary Embolism N Pre-Eclampsia N Hypertension N Chronic Ear Infections N Osteoporosis N Chicken Pox N Autism Spectrum Disorder (ASD) N Thrombophilias N Gynecological HistoryNo gynecological history recorded. Obstetrics History GPAL:G 0 P 0 0 0 0 Immunizations Vaccine Type Date Status Note Provider Nam e and Address Organization Details Recorded Time Influenza, split virus, quadrivalent, preservative 3 completed [facility] 01/07/2024 10:05:06 Influenza, MDCK, quadrivalent, preservative 0 completed [facility] 01/07/2024 10:05:06 COVID-19, mRNA, LNP-S, PF, 30 mcg/0.3 mL dose 1 completed [facility] 01/07/2024 10:05:06 COVID-19, mRNA, LNP-S, PF, 30 mcg/0.3 mL dose 1 completed Anh bower [facility] 01/07/2024 10:05:06 Hep A, adult 3 completed Anh bower, [facility] 01/07/2024 10:05:06 Hep A, adult 2 completed Anh bower [facility] 01/07/2024 10:05:06 Influenza, split virus, quadrivalent, PF 0 completed Anh bower [facility] 01/07/2024 10:05:06 Past Encounters Encounter ID Performer Location Encounter Start Date Encounter Closed Date Diagnosis/Indication Diagnosis SNOMED-CT Code Diagnosis ICD10 Code Diagnosis IMO Codes Diagnosis Note [id number] SAVANNA GREWAL APRN [facility] ([facility]) [address] [place] [address] 06/16/2025 11:40:40 06/18/2025 10:18:17 Dysuria 64700231 R30.0 51304 Acute urin vicky tract infection 631081417 N39.0 [id number] Health Concerns Section Related Observation LastModified by Organization Detai ls LastModified Time None Recorded Concern Status LastModified by Organization Details LastModified Time None Recorded Payers Encounter Date Sequence Insurance Name Policy Number Policy James Covered Member ID James Member ID Guarantor Name 06/16/2025 1 [facility] (MEDICARE REPLACEMENT/A DVANTAGE - PPO) [id number] Daniela Cornelius [id number] Daniela Cornelius 06/16/2025 2 [place] Daniela Cornelius [id number] Daniela Cornelius Notes Date Note Type Note Provider Name and Address Organization Details Recorded Time 06/16/2025 text/html Lower Urinary Tr act Symptoms (LUTS)Reported by PatientHPIFor associated symptoms, patient reportslow back pain,nausea,frequency ,dysuria,__ incontinence,urine odor, andpelvic painbut reportsno abdominal pain. For severity, patient reportsmoderate. For onset/timing, patient reportsconstantand4-1 0 times a day. For duration, patient reportsacuteand< 1 week. For context, patient reportshistory of urinary tract infection.ROS as noted in the HPI walk-in- on over the counter meds SAVANNA GREWAL, OLIVIA [address] [place], [address], [facility], Aparna 06/17/2025 08:46:24 OBGyn Episode No OBEpisode recorded.
--- OUTSIDE RECORDS SUMMARY | 2025-07-26 19:26 | XMS_ITS | Encounter Summary ---
Author Organization [facility] Address [address] [place] [address] Care Team Providers Care Electrical Engineering Teacher Name Role Phone Omega Woods MD Primary Care Provider [phone] Encounter Details Date Type Department Care Team (Latest Contact Info) Description 08/08/2013 Ancillary Orders [facility] Centralized Scheduling [address] [facility] [address] [place] [phone] Quintin Sun MD [address] [place] [address] Other screening mammogram (Primary Dx) Social History Tobacco Use Types Packs/Day Years Used Date Smoking Tobacco: Never Assessed Comments Unknown Sex and Gender Information Value Date Recorded Sex Assigned at Not on file 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 Exam was auto-finalized. Procedure Note Sindy Rizo, RT - 08/08/2013 Order information only. Exam was auto-finalized. Quintin Sun MD DIAGNOSTIC IMAGING ORDERABLES F inal Result documented in this encounter Visit Diagnoses Diagnosis Other screening mammogram- Primary Other screening mammogram documented in this encounter Care Teams Electrical Engineering Teacher Relationship Specialty Start Date End Date Omega Woods MD [address] [place] [phone] PCP - General Family Practice 12/30/17 documented as of this encounter
--- OUTSIDE RECORDS SUMMARY | 2025-07-26 19:26 | XMS_ITS | Encounter Summary ---
Author Organization [facility] Address [address] [place] [address] Care Team Providers Care Internet Application Developer Name Role Phone Omega Woods MD Primary Care Provider [phone] Encounter Details Date Type Department Care Team (Latest Contact Info) Description 01/28/[address] 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
--- OUTSIDE RECORDS SUMMARY | 2025-07-26 19:26 | XMS_ITS | Encounter Summary ---
Author Organization [facility] Address [address] [place] [address] Care Team Providers Care Butcher Chicken And Fish Name Role Phone Omega Woods MD Primary Care Provider [phone] Encounter Details Date Type Department Care Team (Late st Contact Info) Description 04/05/1998 Outpatient Historical [facility] [address] [place] [address] Dafne Hitchcock MD [address] [facility], [facility] [address] [place] [address] 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) Social History Tobacco Use Types Packs/Day Years Used Date Smoking Tobacco: Never Assessed Comments Unknown Sex and Gender Information Value Date Recorded Sex Assigned at Not on file 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
--- OUTSIDE RECORDS SUMMARY | 2025-07-26 19:26 | XMS_ITS | Encounter Summary ---
Author Organization [facility] Address [address] [place] [address] Care Team Providers Care Cutter Gas Name Role Phone Omega Woods MD Primary Care Provider [phone] Reason for Referral * Outpatient Services (Routine) - Closed Specialty Diagnoses / Procedures Referred By Contac t Referred To Contact Radiology Diagnoses Other screening mammogram Procedures MAMMO DIGITAL SCREEN BILAT Quintin Sun MD [address] [place] [address] Phone: tel: fax: [facility] [address] [facility] [address] [place] [address] Phone: tel: fax: Referral ID Status Reason Start Date Expiration Date V isits Requested Visits Authorized [id number] Closed [facility] CTS to Schedule (SGF) 08/28/2014 09/28/2015 1 1 CHOOL PRINCIPAL Encounter Details Date Type Department Care Team (Latest Contact Info) Description 08/28/2014 Ancillary Orders [facility] Scheduling [address] [facility] [address] [place] [address] Quintin Sun MD [address] [place] [address] Other screening mammogram (Primary Dx) Social History Tobacco Use Types Packs/Day Years Used Date Smoking Tobacco: Never Assessed Comments Unknown Sex and Gender Information Value Date Recorded Sex Assigned at Not on file Legal Sex Female 2:57 AM PRESCHOOL PRINCIPAL Gender Identity Not on file Sexual Orientation Not on file Occupation Industry Job Start Date Job End Date Not on file Not on file Not on file Not on file documented as of this encounter Plan of Treatment Not on file documented as of this encounter Results * MAMMO DIGITAL SCREEN BILAT (10/02/2014 1:58 PM PRESCHOOL PRINCIPAL) Anatomical Region Laterality Modality Breast Bilateral Mammography Narrative 10/04/2014 7:56 AM PRESCHOOL PRINCIPAL Bilateral Mammogram Reason for Exam: Screening Comparison: Compared to: 08/17/2013 MAMMO DIGITAL SCREEN BILAT, 08/03/2012 MAMMO DIGITAL SCREEN BILAT, 08/03/2011 MAMMO SCREENING BILAT, 08/01/2010 MAMMO SCREENING BILAT, 07/30/2009 MAMMO SCREENING BILAT, 07/31/2008 MAMMO DIGITIZED STUDY Findings: Bilateral CC and MLO views were obtained. This examination was reviewed with the aid of a computer-aided detection system(CAD). The breast tissue density is average. No significant new findings since the prior mammogram(s). Quintin Sun MD MAMMO ORDERABLES Final Result documented in this encounter Visit Diagnoses Diagnosis Other screening mammogram- Primary Other screening mammogram documented in this encounter Care Teams Cutter Gas Relationship Specialty Start Date End Date Omega Woods MD [address] [place] [phone] PCP - General Family Practice 12/30/17 documented as of this encounter
--- OUTSIDE RECORDS SUMMARY | 2025-07-26 19:26 | XMS_ITS | Encounter Summary ---
Author Organization [facility] Address [address] [place] [address] Care Team Providers Care Legal Process Specialist Name Role Phone Omega Woods MD Primary Care Provider [phone] Encounter Details Date Type Department Care Team (Latest Contact Info) Description 11/27/2015 Ancillary Orders [facility] Centralized Scheduling [address] 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
--- OUTSIDE RECORDS SUMMARY | 2025-07-26 19:26 | XMS_ITS | Encounter Summary ---
Author Organization [facility] Address [address] [place] [address] Care Team Providers Care Social Psychologist Name Role Phone Omega Woods MD Primary Care Provider [phone] Reason for Referral * Outpatient Services (Routine) - Closed Specialty Diagnoses / Procedures Referred By Contac t Referred To Contact Radiology Diagnoses Screening mammogram, encounter for Procedures MAMMO SCREEN BILAT W OR WO CAD Omega Woods MD [address] [place] [address] Phone: tel: fax: [facility] [address] [facility] [address] [place] [address] Phone: tel: fax: Referral ID Status Reason Start Date Expiration Date V isits Requested Visits Authorized [id number] Closed [facility] CTS to Schedule (SGF) 12/08/2017 01/08/2019 1 1 Encounter Details Date Type Department Care Team (Latest Contact Info) Description 12/08/2017 Ancillary Orders [facility] Centralized Scheduling [address] [facility] [address] [place] [address] Omega Woods MD [address] [place] [address] Screening mammogram, encounter for Social History Tobacco Use Types Packs/Day Years Used Date Smoking Tobacco: Never Assessed Comments Unknown Sex and Gender Information Value Date Recorded Sex Assigned at Not on file 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 BI-RADS: 0 Recommendation: Additional imaging Recommendation Laterality: Right [id number] Narrative 12/16/2017 12:55 PM CDT EXAM: MAMMO SCREEN BILAT W OR WO CAD, 12/14/2017 1:34 PM CLINICAL INDICATIONS: Screening COMPARISON: 11/17/2016, 10/02/2014, 08/17/2013, 08/03/2012 and 07/30/2011 TECHNIQUE: Bilateral digital MLO and CC views of the breasts were obtained. This digital mammogram was also analyzed by the Computer Aided Detection System (CAD), [employer] ImageChecker, Version 8.3. FINDINGS: There are scattered areas of fibroglandular density. Bilateral benign appearing calcifications are noted. An asymmetry is seen within the lateral right breast at posterior depth. This is not definitely visualized on the MLO view, but is likely within the central right breast. There are no other suspicious masses, calcifications, or architectural distortions. us External Provider Mtnv MAMMO ORDERABLES Final Re sult documented in this encounter Visit Diagnoses Diagnosis Screening mammogram, encounter for Screening mammogram, encounter for documented in this encounter Care Teams Social Psychologist Relationship Specialty Start Date End Date Omega Woods MD [address] [place] [phone] PCP - General Family Practice 12/30/17 documented as of this encounter
--- OUTSIDE RECORDS SUMMARY | 2025-07-26 19:26 | XMS_ITS | Encounter Summary ---
Author Organization [facility] Address [address] [place] [address] Care Team Providers Care Food And Nutrition Teacher Name Role Phone Omega Woods MD Primary Care Provider [phone] Reason for Referral * Outpatient Services (Routine) - Closed Specialty Diagnoses / Procedures Referred By Contac t Referred To Contact Radiology Diagnoses Screening mammogram, encounter for Procedures MAMMO SCREEN BILAT W OR WO CAD Omega Woods MD [address] [place] [address] Phone: tel: fax: [facility] [address] [facility] [address] [place] [address] Phone: tel: fax: Referral ID Status Reason Start Date Expiration Date V isits Requested Visits Authorized [id number] Closed [facility] CTS to Schedule (SGF) 11/04/2016 12/05/2017 1 1 NISTRATIVE ASSISTANT RECEPTIONIST Encounter Details Date Type Department Care Team (Latest Contact Info) Description 11/04/2016 Ancillary Orders [facility] Centralized Scheduling [address] [facility] [address] [place] [address] Omega Woods MD [address] [place] [address] Screening mammogram, encounter for Social History Tobacco Use Types Packs/Day Years Used Date Smoking Tobacco: Never Assessed Comments Unknown Sex and Gender Information Value Date Recorded Sex Assigned at Not on file Legal Sex Female 2:57 AM ADMINISTRATIVE ASSISTANT RECEPTIONIST Gender Identity Not on file Sexual Orientation Not on file Occupation Industry Job Start Date Job End Date Not on file Not on file Not on file Not on file documented as of this encounter Plan of Treatment Not on file documented as of this encounter Results * MAMMO SCREEN BILAT W OR WO CAD (11/17/2016 12:51 PM CDT) Anatomical Region Laterality Modality Breast Bilateral Mammography Narrative 11/23/2016 5:42 AM CDT Bilateral Mammogram Reason for Exam: Screening Comparison: Compared to: 10/02/2014 MAMMO DIGITAL SCREEN BILAT, and 08/17/2013 MAMMO DIGITAL SCREEN BILAT Findings: Bilateral CC and MLO views were obtained. This examination was reviewed with the aid of a computer-aided detection system(CAD). The breast tissue density is average. No significant new findings since the prior mammogram(s). us External Provider Mtnv MAMMO ORDERABLES Final Re sult documented in this encounter Visit Diagnoses Diagnosis Screening mammogram, encounter for Screening mammogram, encounter for documented in this encounter Care Teams Food And Nutrition Teacher Relationship Specialty Start Date End Date Omega Woods MD [address] [place] [address] PCP - General Family Practice 12/30/17 documented as of this encounter
--- OUTSIDE RECORDS SUMMARY | 2025-07-26 19:26 | XMS_ITS | Encounter Summary ---
Author Organization [facility] Address [address] [place] [address] Care Team Providers Care Dairy Equipment Mechanic Name Role Phone Omega Woods MD Primary Care Provider [phone] Encounter Details Date Type Department Care Team (Late st Contact Info) Description 06/01/2018 Ancillary Orders [facility] Pre-Registration [place] CALL TO MAKE APPOINTMENT ONLY [address] [place] [address] Omega Woods MD [address] [facility] [place] [address] Social History Tobacco Use Types Packs/Day Years Used Date Smoking Tobacco: Never Assessed Comments No Sex and Gender Information Value Date Recorded Sex Assigned at Not on file Legal Sex Female 2:57 AM RN CARDIAC CATH Gender Identity Not on file Sexual Orientation Not on file Occupation Industry Job Start Date Job End Date Not on file Not on file Not on file Not on file documented as of this encounter Plan of Treatment Not on file documented as of this encounter Visit Diagnoses Not on filedocumented in this encounter Care Teams Dairy Equipment Mechanic Relationship Specialty Start Date End Date Omega Woods MD [address] [place] [address] PCP - General Family Practice 12/30/17 documented as of this encounter
--- OUTSIDE RECORDS SUMMARY | 2025-07-26 19:26 | XMS_ITS | Encounter Summary ---
Author Organization [facility] Address [address] [place] [address] Care Team Providers Care Bobj Developer Name Role Phone Omega Woods MD Primary Care Provider [phone] Encounter Details Date Type Department Care Team (Latest Contact Info) Description 01/18/1998 Outpatient Historical [facility] Breast [facility] Chaitanya Ag [address] [place] [address] Cristhian San MD NO ADDRESS ON FILE Other screening mammogram (Primary Dx) Social History Tobacco Use Types Packs/Day Years Used Date Smoking Tobacco: Never Assessed Comments Unknown Sex and Gender Information Value Date Recorded Sex Assigned at Not on file 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
--- OUTSIDE RECORDS SUMMARY | 2025-07-26 19:26 | XMS_ITS | Encounter Summary ---
Author Organization [facility] Address [address] [facility] [address] 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
--- OUTSIDE RECORDS SUMMARY | 2025-07-26 19:26 | XMS_ITS | Encounter Summary ---
Author Organization [facility] Address [address] [place] [address] Care Team Providers Care Coil Repair Technician Name Role Phone Omega Woods MD Primary Care Provider [phone] Encounter Details Date Type Department Care Team (Late st Contact Info) Description 04/11/1999 Outpatient Historical [facility] Breast [facility] [place] Ag [address] [place] [phone] Aparna Ayon MD NO ADDRESS ON FILE Other screening mammogram (Primary Dx) Social History Tobacco Use Types Packs/Day Years Used Date Smoking Tobacco: Never Assessed Comments Unknown Sex and Gender Information Value Date Recorded Sex Assigned at Not on file Legal Sex Female 2:57 AM ONLINE MERCHANDISING MANAGER Gender Identity Not on file Sexual Orientation Not on file documented as of this encounter Plan of Treatment Not on file documented as of this encounter Visit Diagnoses Diagnosis Other screening mammogram- Primary documented in this encounter Care Teams Coil Repair Technician Relationship Specialty Start Date End Date Omega Woods MD [address] [place] [address] PCP - General Family Practice 12/30/17 documented as of this encounter
--- OUTSIDE RECORDS SUMMARY | 2025-07-26 19:26 | XMS_ITS | Encounter Summary ---
Author Organization [facility] Address [address] [place] [address] Care Team Providers Care Tree Killer Name Role Phone Omega Woods MD Primary Care Provider [phone] Reason for Referral * Radiology Services (Routine) - Closed Specialty Diagnoses / Procedures Referred By Contac t Referred To Contact Radiology Diagnoses Encounter for screening mammogram for malignant neoplasm of breast Procedures MAMMO SCREEN BILAT W OR WO CAD Omega Woods MD [address] [place] [address] Phone: tel: fax: [facility] [address] [facility] [address] [place] [address] Phone: tel: fax: Referral ID Status Reason Start Date Expiration Date V isits Requested Visits Authorized [id number] Closed [facility] CTS to Schedule (SGF) 10/18/2019 11/17/2020 1 1 PRESIDENT OF TALENT MANAGEMENT Encounter Details Date Type Department Care Team (Latest Contact Info) Description 10/18/2019 Ancillary Orders [facility] Centralized Scheduling [address] [facility] [address] [place] [address] Omega Woods MD [address] [place] [address] Encounter for screening mammogram for malignant neoplasm of breast Social History Tobacco Use Types Packs/Day Years Used Date Smoking Tobacco: Never Assessed Comments No Sex and Gender Information Value Date Recorded Sex Assigned at Not on file Legal Sex Female 2: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 PRESIDENT OF TALENT MANAGEMENT Gender Identity Not on file Sexual Orientation Not on file Occupation Industry Job Start Date Job End Date Not on file Not on file Not on file Not on file documented as of this encounter Plan of Treatment Not on file documented as of this encounter Results * MAMMO SCREEN BILAT W OR WO CAD (01/23/2020 11:54 AM CDT) Anatomical Region Laterality Modality Breast Bilateral Mammography Narrative 01/25/2020 12:17 PM CDT Bilateral Mammogram Reason for Exam: Screening Comparison: Compared to: 10/02/2014 MAMMO DIGITAL SCREEN BILAT, 08/17/2013 MAMMO DIGITAL SCREEN BILAT, 07/30/2011 MAMMO DIGITIZED STUDY, 08/01/2010 MAMMO SCREENING BILAT, 07/30/2009 MAMMO SCREENING BILAT, and 07/31/2008 MAMMO DIGITIZED STUDY Findings: Bilateral CC and MLO views were obtained. This examination was reviewed with the aid of a computer-aided detection system(CAD). Breast Composition: There are scattered areas of fibroglandular density. There are no suspicious masses, areas of architectural distortions, or microcalcifications to suggest malignancy. No significant new findings since the prior mammogram(s). Impression: Negative screening mammogram. Recommendation: Routine annual follow-up Overall Assessment: Birads Category 1: Negative us External Provider Mtnv MAMMO ORDERABLES Final Re sult documented in this encounter Visit Diagnoses Diagnosis Encounter for screening mammogram for malignant neoplasm of breast Other screening mammogram Encounter for screening mammogram for malignant neoplasm of breast Other screening mammogram documented in this encounter Care Teams Tree Killer Relationship Specialty Start Date End Date Omega Woods MD [address] [place] [address] PCP - General Family Practice 12/30/17 documented as of this encounter
--- OUTSIDE RECORDS SUMMARY | 2025-07-26 19:26 | XMS_ITS | Encounter Summary ---
Author Organization [facility] Address [address] [place] [address] Care Team Providers Care Agricultural Scientist Name Role Phone Omega Woods MD Primary Care Provider [phone] Encounter Details Date Type Department Care Team (Late st Contact Info) Description 11/22/2001 Outpatient Historical [facility] [place] [address] [place] [address] Dafne Hitchocck MD [address] [facility], [facility] [address] [place] [address] FEMALE GENITAL SYMPTOMS NOS (Primary Dx) Social History Tobacco Use Types Packs/Day Years Used Date Smoking Tobacco: Never Assessed Comments Unknown Sex and Gender Information Value Date Recorded Sex Assigned at Not on file Legal Sex Female 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
--- OUTSIDE RECORDS SUMMARY | 2025-07-26 19:26 | XMS_ITS | Encounter Summary ---
Author Organization [facility] Address [address] [place] [address] Care Team Providers Care Head Of Data Name Role Phone Omega Woods MD Primary Care Provider [phone] Encounter Details Date Type Department Care Team (Late st Contact Info) Description 08/03/2011 Ancillary Orders [facility] Imaging External Read [address] [place] [address] Murtaza Araya MD NO ADDRESS ON FILE Social History Tobacco Use Types Packs/Day Years Used Date Smoking Tobacco: Never Assessed Comments Unknown Sex and Gender Information Value Date Recorded Sex Assigned at Not on file Legal Sex Female 2: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
--- OUTSIDE RECORDS SUMMARY | 2025-07-26 19:26 | XMS_ITS | Encounter Summary ---
Author Organization [facility] Address [address] [place] [address] Care Team Providers Care Manager Camp Name Role Phone Omega Woods MD Primary Care Provider [phone] Encounter Details Date Type Department Care Team (Late st Contact Info) Description 08/01/2010 Ancillary Orders [facility] Breast [place] [facility] External Read [address] [place] [address] Murtaza Araya MD NO ADDRESS ON FILE Screening mammogram Social History Tobacco Use Types Packs/Day Years Used Date Smoking Tobacco: Never Assessed Comments Unknown Sex and Gender Information Value Date Recorded Sex Assigned at Not on file Legal Sex Female 2:57 AM QUALITY ASSURANCE MANAGER Gender Identity Not on file Sexual Orientation Not on file documented as of this encounter Plan of Treatment Not on file documented as of this encounter Results * MAMMO SCREENING BILAT (08/01/2010 1:47 PM QUALITY ASSURANCE MANAGER) Anatomical Region Laterality Modality Breast Bilateral Mammography Narrative 08/08/2010 10:42 AM QUALITY ASSURANCE MANAGER Bilateral Mammogram Reason for Exam: Screening Comparison: Comparison is made with the prior exam(s) dated 07.24.09 Findings: Bilateral CC and MLO views were obtained. This examination was reviewed with the aid of a computer-aided detection system(CAD). The breast tissue density is average. No significant new findings since the prior mammogram(s). Procedure Note Nick Omalley MD - 08/08/2010 Bilateral Mammogram Reason for Exam: Screening Comparison: Comparison is made with the prior exam(s) [id number] Findings: Bilateral CC and MLO views were obtained. This examination was reviewed with the aid of a computer-aided detectionsystem(CAD). The breast tissue density is average. No significant new findings since the prior mammogram(s). us Murtaza Araya MD MAMMO ORDERABLES Final Result documented in this encounter Visit Diagnoses Diagnosis Screening mammogram Other screening mammogram documented in this encounter Care Teams Manager Camp Relationship Specialty Start Date End Date Omega Woods MD [address] [place] [phone] PCP - General Family Practice 12/30/17 documented as of this encounter
--- OUTSIDE RECORDS SUMMARY | 2025-07-26 19:26 | XMS_ITS | Encounter Summary ---
Author Organization [facility] Address [address] [place] [address] Care Team Providers Care Pv Design And Installation Technician Name Role Phone Omega Woods MD Primary Care Provider [phone] Reason for Referral * Outpatient Services (Routine) - Closed Specialty Diagnoses / Procedures Referred By Contac t Referred To Contact Diagnoses Visit for screening mammogram Procedures MAMMO DIGITIZED STUDY Quintin Sun MD [address] [place] [address] Phone: tel: fax: Referral ID Status Reason Start Date Expiration Date Visits Re quested Visits Authorized [id number] Closed 08/02/2012 08/02/2013 1 1 MATOR BINDING Encounter Details Date Type Department Care Team (Latest Contact Info) Description 08/02/2012 Ancillary Orders [facility] Centralized Scheduling [address] [facility] [address] [place] [address] Quintin Sun MD [address] [place] [address] Visit for screening mammogram Social History Tobacco Use Types Packs/Day Years Used Date Smoking Tobacco: Never Assessed Comments Unknown Sex and Gender Information Value Date Recorded Sex Assigned at Not on file Legal Sex Female 2:57 AM ESTIMATOR BINDING Gender Identity Not on file Sexual Orientation Not on file documented as of this encounter Plan of Treatment Not on file documented as of this encounter Results * MAMMO DIGITIZED STUDY (07/31/2008 4:24 PM ESTIMATOR BINDING) Narrative Darrius Sindy Guerra, RT - 08/02/2012 4:25 PM ESTIMATOR BINDING Order information only. Exam was auto-finalized. Procedure Note Sindy Rizo, RT - 08/02/2012 Order information only. Exam was auto-finalized. Quintin Sun MD DIAGNOSTIC IMAGING ORDERABLES F inal Result documented in this encounter Visit Diagnoses Diagnosis Visit for screening mammogram Other screening mammogram Visit for screening mammogram Other screening mammogram documented in this encounter Care Teams Pv Design And Installation Technician Relationship Specialty [place] [address] [place] [phone] PCP - General Family Practice 12/30/17 documented as of this encounter
--- OUTSIDE RECORDS SUMMARY | 2025-07-26 19:26 | XMS_ITS | Clinical Summary ---
Author Organization [facility] Address [address] [place] [address] Phone Care Team Providers Care Air Compressor Operator Name Role Phone Omega Woods MD Primary Care Provider [phone] Allergies Active Allergy Reactions Criticality Noted Date Comments Cephalexin Unknown 01/08/2016 Penicillins Hives High 01/08/2016 Medications sucralfate (CARAFATE) 1 gram tablet Take 1 Gram by mouth 4 times daily before meals and at bedtime. Active hydrochlorothiaz betzaida 25 mg tablet Take 25 mg by mouth daily. Active HYDROcodone-acet aminophen (NORCO) 5-325 mg tablet Take 1 Tablet by mouth every 4 hours as needed for Pain, Moderate. Active omeprazole (PRILOSEC) 20 mg Capsule, Delayed Release(E.C.) Take 20 mg by mouth daily. Active isosorbide dinitrate (ISORDIL) 10 mg tablet Take 10 mg by mouth 3 times daily. Active famotidine (PEPCID) 20 mg tablet Take 20 mg by mouth 2 times daily. Active Active Problems No known active problems Immunizations Immunization Administration Dates Next Due Hepatitis A Vaccine 01/03/2003,01/05/2002 Family History Medical History Relation Name Comments Breast Cancer Neg Hx Cancer Neg Hx Ovarian Cancer Neg Hx Relation Name Status Comments Daughter 1 Alive Daughter 2 Alive Daughter 3 Alive Maternal Grandmother Mother Alive Sister Alive Social History Tobacco Use Types Packs/Day Years Used Date Smoking Tobacco: Never Assessed Comments No Sex and Gender Information Value Date Recorded Sex Assigned at Not on file Legal Sex Female 2:57 AM COGENERATION TECHNICIAN Gender Identity Not on file Sexual Orientation Not on file Occupation Industry Job Start Date Job End Date Not on file Not on file Not on file Not on file Last Filed Vital Signs Vital Sign Reading Time Taken Comments Blood Pressure 129/84 03/18/2016 1:27 PM CDT Pulse 75 03/18/2016 1:27 PM CDT Temperature 36.3 C (97.4 F) 03/18/2016 1:24 PM CDT Respiratory Rate 19 03/18/2016 1:27 PM CDT Oxygen Saturation 94% 03/18/2016 1:27 PM CDT Inhaled Oxygen Concentration - - Weight 76.7 kg (169 lb) 03/18/2016 11:21 AM CDT Height 165.1 cm (5' 5 ) 03/18/2016 11:21 AM CDT Body Mass Index 28.12 03/18/2016 11:21 AM CDT Plan of Treatment Health Maintenance Due Date Last Done Comments DTAP/TDAP/TD VACCINES (1 - Tdap) 1962 PNEUMOCOCCAL VACCINE 50+ YEARS (1 of 1 - PCV) 01/17/19 93 ZOSTER VACCINE (1 of 2) 1993 OSTEOPOROSIS SCREENING 01/18/2008 RSV VACCINE (60+ or ) (1 - 1-dose 75+ series) 2018 INFLUENZA VACCINE (#1) 2025 Colorectal Cancer Screening Discontinued FIT/FOBT Q 1 year Discontinued 11/22/2001 COLORECTAL SCREENING Discontinued FIT-DNA Q 3 years Discontinued Flex Sig/CT Colonography Q 5 years Discontinued Medical Devices Implanted Type Area Work Order Clerk Device Identifier Shelf Expiration Date Model / Serial / Lot Lens Io Bi-Aspheric Softechd+21.5 - [id number] Implanted:Qty: 1 on 01/08/2016 by Cornel Galindo MD at [facility] Eye Right: Eye [employer] 04/09/2020 SOFTECHD+21 .5 / [id number] / Lens Io Bi-Aspheric Softechd+22.5d - [id number] Implanted:Qty: 1 on 03/18/2016 by Cornel Galindo MD at [facility] Eye Left: Eye [employer] 01/16/2019 SOFTECHD+22 .5D / [id number] / Insurance [employer] DUAL COMPLETE MCR PPO D-SNP Advance Directives For more information, please contact: [phone] * Full Code (Latest Code Status on File) Date Activated Date Inactivated Comments 12/18/2015 9:09 AM 12/18/2015 2:53 PM Care Teams Air Compressor Operator Relationship Specialty Start Date End Date Omega Woods MD [address] [place] [phone] PCP - General Family Practice 12/30/17
--- OUTSIDE RECORDS SUMMARY | 2025-07-26 19:26 | XMS_ITS | Encounter Summary ---
Author Organization [facility] Address [address] [place] [address] Care Team Providers Care Certified Surgical Assistant Name Role Phone Omega Woods MD Primary Care Provider [phone] Reason for Referral * Outpatient Services (Routine) - Closed Specialty Diagnoses / Procedures Referred By Contac t Referred To Contact Radiology Diagnoses Other screening mammogram Procedures MAMMO DIGITAL SCREEN BILAT Quintin Sun MD [address] [place] [address] Phone: tel: fax: [facility] [address] [facility] [address] [place] [address] Phone: tel: fax: Referral ID Status Reason Start Date Expiration Date V isits Requested Visits Authorized [id number] Closed [facility] View CTS to Schedule (SGF) 07/19/2013 08/19/2014 1 1 MANAGER Encounter Details Date Type Department Care Team (Latest Contact Info) Description 07/19/2013 Ancillary Orders [facility] Scheduling [address] [facility] [address] [place] [address] Quintin Sun MD [address] [place] [address] Other screening mammogram (Primary Dx) Social History Tobacco Use Types Packs/Day Years Used Date Smoking Tobacco: Never Assessed Comments Unknown Sex and Gender Information Value Date Recorded Sex Assigned at Not on file Legal Sex Female 2:57 AM MALL MANAGER Gender Identity Not on file Sexual Orientation Not on file Occupation Industry Job Start Date Job End Date Not on file Not on file Not on file Not on file documented as of this encounter Plan of Treatment Not on file documented as of this encounter Results * MAMMO DIGITAL SCREEN BILAT (08/17/2013 11:52 AM MALL MANAGER) Anatomical Region Laterality Modality Breast Bilateral Mammography Narrative 08/21/2013 8:33 AM MALL MANAGER Bilateral Mammogram Reason for Exam: Screening Comparison: Compared to: 08/03/2012 MAMMO DIGITAL SCREEN BILAT, 07/30/2011 MAMMO DIGITIZED STUDY, 07/29/2010 MAMMO DIGITIZED STUDY, 07/24/2009 MAMMO DIGITIZED STUDY, 07/31/2008 MAMMO DIGITIZED STUDY Findings: Bilateral CC and MLO views were obtained. This examination was reviewed with the aid of a computer-aided detection system(CAD). The breast tissue density is average. No significant new findings since the prior mammogram(s). Procedure Note Sury Gomez MD - 08/21/2013 Bilateral Mammogram Reason for Exam: Screening Comparison: Compared to: 08/03/2012 MAMMO DIGITAL SCREEN BILAT, 07/30/2011MAMMO DIGITIZED STUDY, 07/29/2010 MAMMO DIGITIZED STUDY, 07/24/2009 MAMMODIGITIZED STUDY, 07/31/2008 MAMMO DIGITIZED STUDY Findings: Bilateral CC [...] mammogram documented in this encounter Care Teams Certified Surgical Assistant Relationship Specialty Start Date End Date Omega Woods MD [address] [place] [phone] PCP - General Family Practice 12/30/17 documented as of this encounter
--- OUTSIDE RECORDS SUMMARY | 2025-07-26 19:26 | XMS_ITS | Encounter Summary ---
Author Organization [facility] Address [address] [place] [address] Care Team Providers Care Tube Coater Name Role Phone Omega Woods MD Primary Care Provider [phone] Encounter Details Date Type Department Care Team (Latest Contact Info) Description 08/08/2013 Ancillary Orders [facility] Centralized Scheduling [address] [facility] [address] [place] [address] Quintin Sun MD [address] [place] [address] Other screening mammogram (Primary Dx) Social History Tobacco Use Types Packs/Day Years Used Date Smoking Tobacco: Never Assessed Comments Unknown Sex and Gender Information Value Date Recorded Sex Assigned at Not on file Legal Sex Female 2:57 AM FINE DINING SERVER Gender Identity Not on file Sexual Orientation Not on file Occupation Industry Job Start Date Job End Date Not on file Not on file Not on file Not on file documented as of this encounter Plan of Treatment Not on file documented as of this encounter Results * MAMMO DIGITIZED STUDY (07/24/2009 4:20 PM FINE DINING SERVER) Narrative Sindy Rizo, RT - 08/08/2013 4:20 PM FINE DINING SERVER Order information only. Exam was auto-finalized. Procedure Note Sidny Rizo, RT - 08/08/2013 Order information only. Exam was auto-finalized. Quintin Sun MD DIAGNOSTIC IMAGING ORDERABLES F inal Result documented in this encounter Visit Diagnoses Diagnosis Other screening mammogram- Primary Other screening mammogram documented in this encounter Care Teams Tube Coater Relationship Specialty Start Date End Date Omega Woods MD [address] [place] [phone] PCP - General Family Practice 12/30/17 documented as of this encounter
--- OUTSIDE RECORDS SUMMARY | 2025-07-26 19:26 | XMS_ITS | Encounter Summary ---
Author Organization [facility] Address [address] [place] [address] Care Team Providers Care Enterprise Integration Developer Name Role Phone Omega Woods MD Primary Care Provider [phone] Encounter Details Date Type Department Care Team (Late st Contact Info) Description 07/20/2012 Ancillary Orders [facility] [address] [facility] [address] [place] [address] Quintin Sun MD [address] [place] [address] Social History Tobacco Use Types Packs/Day Years Used Date Smoking Tobacco: Never Assessed Comments Unknown Sex and Gender Information Value Date Recorded Sex Assigned at Not on file Legal Sex Female 2:57 AM MOBILE ARCHITECT Gender Identity Not on file Sexual Orientation Not on file documented as of this encounter Plan of Treatment Not on file documented as of this encounter Visit Diagnoses Not on filedocumented in this encounter Care Teams Enterprise Integration Developer Relationship Specialty Start Date End Date Omega Woods MD [address] [place] [phone] PCP - General Family Practice 12/30/17 documented as of this encounter
--- OUTSIDE RECORDS SUMMARY | 2025-07-26 19:26 | XMS_ITS | Encounter Summary ---
Author Organization [facility] Address [address] [place] [address] Care Team Providers Care Coloring Checker Name Role Phone Omega Woods MD Primary Care Provider [phone] Reason for Referral * Radiology Services (Routine) - Closed Specialty Diagnoses / Procedures Referred By Contac t Referred To Contact Radiology Diagnoses Encounter for screening mammogram for malignant neoplasm of breast Procedures MAMMO SCREEN BILAT W OR WO CAD Omega Woods MD [address] [place] [phone] Phone: tel: fax: [facility] [address] [facility] [address] [place] [address] Phone: tel: fax: Referral ID Status Reason Start Date Expiration Date V isits Requested Visits Authorized [id number] Closed [facility] View CTS to Schedule 02/14/2021 03/17/2022 1 1 Encounter Details Date Type Department Care Team (Latest Contact Info) Description 02/14/2021 Ancillary Orders [facility] Centralized Scheduling [address] [facility] [address] [place] [address] Omega Woods MD [address] [place] [address] Encounter for screening mammogram for malignant neoplasm of breast Social History Tobacco Use Types Packs/Day Years Used Date Smoking Tobacco: Never Assessed Comments No Sex and Gender Information Value Date Recorded Sex Assigned at Not on file Legal Sex Female 2:57 AM SVP DIGITAL AD SALES Gender Identity Not on file Sexual Orientation Not on file Occupation Industry Job Start Date Job End Date Not on file Not on file Not on file Not on file documented as of this encounter Plan of Treatment Not on file documented as of this encounter Results * MAMMO SCREEN BILAT W OR WO CAD (02/20/2021 11:47 AM CDT) Anatomical Region Laterality Modality Breast Bilateral Mammography Narrative 02/21/2021 12:34 PM CDT Bilateral Mammogram Reason for Exam: Screening Comparison: Compared to: 01/23/2020 MAMMO SCREEN BILAT W OR WO CAD, 12/14/2017 MAMMO SCREEN BILAT W OR WO CAD, 11/17/2016 MAMMO SCREEN BILAT W OR WO CAD, 10/02/2014 MAMMO DIGITAL SCREEN BILAT, and 08/17/2013 [...] follow-up Overall Assessment: Birads Category 1: Negative Omega Woods MD MAMMO ORDERABLES Final Result documented in this encounter Visit Diagnoses Diagnosis Encounter for screening mammogram for malignant neoplasm of breast Other screening mammogram Encounter for screening mammogram for malignant neoplasm of breast Other screening mammogram documented in this encounter Care Teams Coloring Checker Relationship Specialty Start Date End Date Omega Woods MD [address] [place] [address] PCP - General Family Practice 12/30/17 documented as of this encounter
--- OUTSIDE RECORDS SUMMARY | 2025-07-26 19:26 | XMS_ITS | Encounter Summary ---
Author Organization [facility] Address [address] [place] [address] Care Team Providers Care Journeyman Operator Assistant Name Role Phone Omega Woods MD Primary Care Provider [phone] Reason for Referral * Radiology Services (Routine) - Closed Specialty Diagnoses / Procedures Referred By Contac t Referred To Contact Radiology Diagnoses Follow-up examination of abnormal mammogram Procedures MAMMO DIAG BILAT 3D RM W OR WO CAD MAMMO DIAGNOSTIC BILATERAL W OR WO CAD CHG DIAGNOSTIC MAMMOGRAPHY COMPUTER-AIDED DETCJ BI CHG DIGITAL BREAST TOMOSYNTHESIS BILATERAL Omega Woods MD [address] [place] [address] Phone: tel: fax: [facility] [address] [address] Phone: tel: fax: Referral ID Status Reason Start Date Expiration Date V isits Requested Visits Authorized [id number] Closed [facility] TO SCHEDULE ([facility]) 12/11/2018 01/11/2020 1 1 Electronically signed by [facility], External Provider at 12/11/2018 7:04 PM CDT Encounter Details Date Type Department Care Team (Latest Contact Info) Description 12/11/2018 Ancillary Orders [facility] Pre-Registration [facility] CALL TO MAKE APPOINTMENT ONLY [address] [place] [address] Omega Woods MD [address] [place] [address] Follow-up examination of abnormal mammogram Social History Tobacco Use Types Packs/Day Years Used Date Smoking Tobacco: Never Assessed Comments No Sex and Gender Information Value Date Recorded Sex Assigned at Not on file Legal Sex Female 2:57 AM MANAGER LEAN Gender Identity Not on file Sexual Orientation Not on file Occupation Industry Job Start Date Job End Date Not on file Not on file Not on file Not on file documented as of this encounter Plan of Treatment Not on file documented as of this encounter Results * MAMMO DIAG BILAT 3D RM W OR WO CAD (01/02/2019 12:21 PM CDT) Anatomical Region Laterality Modality Breast Bilateral Mammography 01/02/2019 11:0 7 AM CDT Narrative 01/02/2019 1:28 PM CDT Bilateral diagnostic mammogram 01/02/2019 HISTORY: The patient is 73 years of age and had a benign ultrasound-guided biopsy on the right and this is her second six month follow-up. 3D MLO, medial to lateral, and CC digital tomosynthesis images were acquired and synthesized 2D images (C view) were generated. This digital mammogram was also analyzed by the Computer Aided Detection System (CAD). Bilateral 2-D craniocaudal, medial to lateral, and oblique views were obtained as well. There is average breast parenchymal density. Comparison is made with prior exams of 07/04/2018, 12/31/2017, 12/23/2017, 12/14/2017, 11/17/2016, 10/02/2014, 08/17/2013, and 08/03/2012. No significant change is seen. The biopsy site on the right is stable. The patient was given a verbal and written report. Impression: Benign finding category 2. No significant change is seen status post benign needle core biopsy on the right. I would recommend follow-up screening mammogram in one year. [id number] us External Provider [facility] MAMMO ORDERABLES Final Res ult documented in this encounter Visit Diagnoses Diagnosis Follow-up examination of abnormal mammogram Abnormal mammogram, unspecified Follow-up examination of abnormal mammogram Abnormal mammogram, unspecified documented in this encounter Care Teams Journeyman Operator Assistant Relationship Specialty Start Date End Date Omega Woods MD [address] [place] [phone] PCP - General Family Practice 12/30/17 documented as of this encounter
--- NOTE | 2025-07-26 19:40 | ED_ITS ---
Documented by User: LUZ Scott 07/27/25 00:26 HPI - Female Genitourinary 2 General: Chief complaint: Urogenital-Female Stated complaint: Having blood in Urine Time Seen by Provider: 07/26/25 19:36 Source: patient Mode of arrival: wheelchair Limitations: no limitations History of Present Illness: Patient is an 80-year-old female presents to ED today presumably with her daughter and significant other for evaluation of hematuria. Patient states she has been having ongoing issues with dysuria and frequent UTIs. She has been recommended to follow-up with her urologist for cystoscopy. She states approximately 3 weeks ago she had an emergency where she went to [facility] in [place] with severe abdominal pain. She was found to have a colonic mass with subsequent obstruction and perforation. Patient states she underwent open abdominal surgery and was later told that she had extensive metastatic abdominal cancer. She states they removed three fourths of my colon and she now has an ileostomy. Family is not sure if she underwent PET scan imaging while in the hospital. She did receive a port for chemotherapy. She is scheduled for an additional abdominal surgery. She does have follow-up with oncology in [place] for August 08. She is not sure if she was told the cancer involves her bladder. She states she just noticed the hematuria today. She is not passing clots. She feels like she is still able to urinate well. She is not complaining of dysuria or flank pain. She is not complaining of abdominal pain. She feels like she is healing well since her surgery but has felt somewhat weak. Will attempt to get records from Manuel. elicited complaint: other (hematuria) Pertinent past history: other (recent cancer diagnosis ) Onset (ago): hour(s) Vaginal discharge: none Vaginal bleeding: none Urinary symptoms: Hematuria Exacerbating factors: none Relieving factors: none Associated symptoms: Reports no associated symptoms and nausea; Deny abdominal pain or headache(s) Treatment prior to arrival: none Sexual activity: No Patient : No Related Data Home Medications ?Medication ?Instructions ?Recorded ?Confirmed dorzolamide 2 % eye drops 1 drp ophthalmic (eye) TID 0 05/29/21 07/12/25 latanoprost 0.005 % eye drops 1 drp ophthalmic (eye) D AILY 05/29/21 07/12/25 magnesium oxide 500 mg capsule 500 mg PO DAILY 1 07/12/25 vitamin B complex (B 1 tab PO DAILY 05/29/2106/30 Complex-Vitamin B12 tablet) acetaminophen 325 mg capsule 650 mg PO QID PRN Pain 07/12/25 (Tylenol) triamcinolone acetonide 0.1 % 1 applic topical DAILY P RN 08/11/24 07/12/25 topical cream Previous Rx's ?Medication ?Instructions ?Recorded nitroglycerin 0.4 mg sublingual 0.4 mg sublingual Q5M PRN chest 12/06/19 tablet (Nitrostat) pain #1 pkg hydrocortisone 1 % topical cream 1 applic topical BID PRN skin 06/13/24 (Anti-Itch (hydrocortisone)) irritation #28.35 grams furosemide 40 mg tablet 40 mg PO DAILY #30 tabs 06/30 12/21 nystatin 100,000 unit/gram topical 1 applic topical BI D #30 grams 08/02/24 cream ferrous sulfate 325 mg (65 mg 325 mg PO BID #60 tabs 0 10/24/24 iron) tablet fluconazole 150 mg tablet 150 mg PO .Weekly 4 weeks #4 tabs 10/24/24 nitrofurantoin macrocrystal 50 mg 50 mg PO DAILY UTI p rophylaxis #30 11/23/24 capsule caps celecoxib 100 mg capsule See Rx Instructions .Route 0 12/06/24 .COMPLEX #180 caps metoprolol tartrate 50 mg tablet See Rx Instructions . Route 12/06/24 .COMPLEX #180 tabs isosorbide mononitrate 30 mg See Rx Instructions .Rout e 01/03/25 tablet,extended release 24 hr .COMPLEX #200 tabs levothyroxine 50 mcg tablet See Rx Instructions .Route 01/15/25 .COMPLEX #90 tabs losartan 100 mg tablet See Rx Instructions .Route 0 01/15/25 .COMPLEX #100 tabs spironolactone 25 mg tablet 25 mg PO DAILY #30 tabs cholecalciferol (vitamin D3) 25 75 mcg (3 x 25 mcg (1, 000 unit)) 02/12/25 mcg (1,000 unit) tablet PO DAILY #90 tabs tramadol 50 mg tablet 50 mg PO BID PRN pain #30 ta bs 03/13/25 gabapentin 100 mg capsule See Rx Instructions .Route 0 03/15/25 .COMPLEX #90 caps amlodipine 5 mg tablet 5 mg PO DAILY Elevated BP #9 0 tabs 05/14/25 ropinirole 0.5 mg tablet 0.5 mg PO BID PRN restless l eg(s) 05/17/25 #180 tabs omeprazole 40 mg capsule,delayed 40 mg PO DAILY PRN he artburn #90 06/06/25 release caps ciprofloxacin HCl 500 mg tablet 500 mg PO BID 7 days # 14 tabs 07/18/25 Allergies Allergy/AdvReac Type Severity Reaction Status Date / Time Penicillins Allergy Unknown Unknown Verified 07/26/25 19:46 sulfamethoxazole (From Allergy ALGY-Rash Verified 07/26/25 19:46 Sulfamethoxazole-Trimethoprim) trimethoprim (From Allergy ALGY-Rash Verified 07/26/25 19:46 Sulfamethoxazole-Trimethoprim) Review of Systems 2 Const: Denies: fever(s), chills, body aches, fatigue or malaise Card: Denies: chest pain Resp: Denies: dyspnea GI: Reports: nausea and other (no change in ileostomy output); Denies: abdominal pain or vomiting : Reports: hematuria; Denies: flank pain, difficulty voiding, dysuria, urinary frequency, urinary urgency or urinary hesitancy Musc: Denies: back pain Neuro: Denies: headache(s) or dizziness PFSH ED 2 PFSH: Medical History PVC (premature ventricular contraction) Hypotension Hypothyroid CAD (coronary artery disease) Shortness of breath Chest pain HTN (hypertension) Surgical History S/P cataract extraction History of left knee replacement 03/2024 Hx of eye surgery stent placement History of partial hysterectomy Vaginal History of cholecystectomy History of bladder repair surgery Bladder repair in 2000, sling in 2002 Hx of dilation and curettage Family History Mother Pleural effusion Family/Other Heart problem Other Hx of CABG Social History Smoking and tobacco/nicotine status: never used tobacco/nicotine Alcohol intake: never Substance/Drug Use: never Physical Exam 2 Const: COMMON NORMALS: no acute distress, average body habitus, patient oriented x3, no limitations, healthy appearing, alert and well nourished G ENERAL APPEARANCE: cooperative ORIENTATION/CONSCIOUSNESS: Yes awake, Yes oriented to person, Yes oriented to place and Yes oriented to time Resp: COMMON NORMALS: normal respiratory effort and clear to auscultation bilaterally AUSCULTATION: clear to auscultation bilaterally Cardio: COMMON NORMALS: regular rate and regular rhythm RATE: regular rate RHYTHM: regular rhythm GI: COMMON NORMALS: Soft to palpation and no masses INSPECTION: Yes other (ileostomy present and appears normal) AUSCULTATION: Yes normoactive bowel sounds PALPATION: Yes Soft to palpation, No Tenderness to palpation present (GI), No Guarding due to palpation present (GI) and No Rigid due to palpation : COMMON NORMALS: Yes no CVA tenderness BLADDER/KIDNEY EXAM: Yes no CVA tenderness Back/Pelvis: COMMON NORMALS: no CVA tenderness Neuro: COMMON NORMALS: patient oriented x3 SENSORIUM/ORIENTATION: Yes alert, Yes oriented to person, Yes oriented to place and Yes oriented to time Course 2 Consultations: Consultation #1: Dr. Olivas-hospitalist at [facility]-accepts transfer Vital Signs: Vital signs: Vital Signs Temperature 98.5 F 07/26/25 19:39 Pulse Rate 79 07/27/25 00:30 Respiratory Rate 18 07/26/25 19:39 Blood Pressure 175/103 07/27/25 00:30 Pulse Oximetry 96 07/27/25 00:30 Oxygen Delivery Me thod Room Air 07/26/25 20:44 MDM - Female Medical Decision Making Patient is a nice 80-year-old female here with family for concern of hematuria that started today. 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 She states she is scheduled to see oncology in [place] on August 08. Patient is not complaining of any pain upon arrival today. Urine with gross hematuria clinically. She was found to have a postvoid residual volume of over 400 cc indicating acute urinary retention. Blood work showing a normal white count. Hemoglobin at 9.6. I did discuss with Mar as she was just released there a few weeks ago and hemoglobin was 7.2 at time of discharge. Chemistry showing acute on chronic hyponatremia at 127. She was found to be in acute renal failure with a BUN/Cr 26/4.8. Again discussed with Manuel who stated her creatinine at time of discharge just a few weeks ago was 0.8. UA with gross hematuria here along with evidence for infection with 2+ leuks and 51-100 WBCs although she has had similar urines previously with normal cultures. Will go ahead and culture today and give 1g Rocephin. CT scan to rule out obstructive uropathy from stones/tumor/etc. This overall was unremarkable. No identified cause of her hematuria. Suspicion is a bladder lesion. We do not have any urology coverage for treatment of her bladder hemorrhage causing urinary retention and subsequent renal failure. We will attempt to irrigate bladder here and place womack. Patient would like to be transferred back to [facility] which I feel is appropriate. Case discussed with Dr. Dale. I have spoken to [facility] hospitalist-Dr. Olivas who is accepting transfer. Patient/family wanting to go by POV which I think is reasonable. She is stable enough for this. Differential Diagnosis Likely abdominal pain, calculus of kidney and small bowel obstruction Medical Records I reviewed the patient's medical records. Lab Data I reviewed the patient's lab results. 07/26/25 19:54 07/26/25 19:54 Radiology Impressions Abdomen/Pelvis CT 07/26/25 20:41 IMPRESSION: 1. No hydronephrosis or urolithiasis. Mild urinary bladder distension without additional findings to suggest cystitis. No identified cause of hematuria. 2. Prior colectomy with removal of the ascending colon, transverse colon, and descending colon. High density material throughout the residual colon, with multiple high density diverticula. Retained contrast is favored over gastrointestinal hemorrhage. 3. Right lower quadrant ileostomy without complication. Nonobstructive bowel gas pattern. 4. Numerous scattered small nodules throughout the peripheral mesentery, [id number], largest nodule found within the left lower quadrant measuring 12 mm, consistent with omental implants given the provided clinical history. 5. Nodular hepatic contour suggesting cirrhosis. No identified focal lesion. 6. Mild splenomegaly. Laboratory Results WBC 7.05 10^3/uL (3.29-11.43) 07/26/25 19:54 RBC 3.39 10^6/uL (3.85-5.65) L 07/26/25 19:54 Hgb 9.60 g/dL (11.27-16.99) L 07/26/25 19:54 Hct 29.8 % (36-47) L 07/26/25 19:54 MCV 87.9 fl (85-98) 07/26/25 19:54 MCH 28.3 pg (27-33) 07/26/25 19:54 MCHC 32.2 g/dL (30-55) 07/26/25 19:54 RDW 13.9 % (12.1-15.1) 07/26/25 19:54 Plt Count 168 10^3/cmm (157-399) 07/26/25 19:54 MPV 9.4 fL (7.4-10.4) 07/26/25 19:54 Neut % (Auto) 41.4 % 07/26/25 19:54 Lymph % (Auto) 38.4 % 07/26/25 19:54 [place] % (Auto) 13.6 % 07/26/25 19:54 Eos % (Auto) 5.7 % 07/26/25 19:54 Baso % (Auto) 0.3 % 07/26/25 19:54 Neut # (Auto) 2.92 10^3/uL (1.8-7.7) 07/26/25 19:54 Lymph # (Auto) 2.7 10^3/uL (0.8-4.8) 07/26/25 19:54 [place] # (Auto) 1.0 10^3/uL (0.2-0.9) H 07/26/25 19:54 Eos # (Auto) 0.4 10^3/uL (0.0-0.8) 07/26/25 19:54 Baso # (Auto) 0.0 10^3/uL (0.0-0.1) 07/26/25 19:54 Nucleated RBC % (auto) 0 % 07/26/25 19:54 Nucleated RBCs # 0.0 /100WBC 07/26/25 19:54 Sodium 127 mmol/L (136-145) L 07/26/25 19:54 Potassium 5.1 mmol/L (3.5-5.1) 07/26/25 19:54 Chloride 91 mmol/L (98-107) L 07/26/25 19:54 Carbon Dioxide 22 mmol/L (22-29) 07/26/25 19:54 Anion Gap 19.1 (5-19) H 07/26/25 19:54 BUN 26 mg/dL (8-23) H 07/26/25 19:54 Creatinine 4.8 mg/dL (0.5-0.9) H 07/26/25 19:54 GFR Calculation Not Reportable 07/26/25 19:54 Glucose 114 mg/dL (65-115) 07/26/25 19:54 Calculated Osmolality 270 mOsm/kg (285-295) L 07/26/25 19:54 Calcium 10.0 mg/dL (8.5-10.5) 07/26/25 19:54 Total Bilirubin 0.5 mg/dL (0.15-1.2) 07/26/25 19:54 AST 24 U/L (0-32) 07/26/25 19:54 ALT 9 U/L (0-33) 07/26/25 19:54 Alkaline Phosphatase 69 U/L (35-105) 07/26/25 19:54 Total Protein 7.0 g/dL (6.6-8.7) 07/26/25 19:54 Albumin 3.8 g/dL (3.5-5.2) 07/26/25 19:54 Globulin 3.2 g/dL (1.3-4.6) 07/26/25 19:54 Urine Color Red (Yellow) A 07/26/25 19:42 Urine Appearance Turbid (CLEAR) A 07/26/25 19:42 Urine pH 6.5 (5-7) 07/26/25 19:42 Ur Specific [place] 1.009 (1.005-1.030) 07/26/25 19:42 Urine Protein 2+ (Negative) A 07/26/25 19:42 Urine Glucose (UA) Negative (Normal) 07/26/25 19:42 Urine Ketones Negative (Negative) 07/26/25 19:42 Urine Blood 3+ (Negative) A 07/26/25 19:42 Urine Nitrate Negative (Negative) 07/26/25 19:42 Urine Bilirubin 2+ (Negative) H 07/26/25 19:42 Urine Urobilinogen 0.2 mg/dL (Negative) 07/26/25 19:42 Ur Leukocyte Esterase 2+ (Negative) A 07/26/25 19:42 Urine RBC >100 /hpf (0-2) H 07/26/25 19:42 Urine WBC 51-100 /hpf (0-5) H 07/26/25 19:42 Ur Squamous Epith Cells 6-10 /hpf (0-5) 07/26/25 19:42 Amorphous Sediment Not Reportable 07/26/25 19:42 Urine Bacteria None seen /hpf (NONE) 07/26/25 19:42 Hyaline Casts 0.84 /lpf 07/26/25 19:42 All radiology interpretation(s) finalized by discharge Discharge Plan Discharge Patient Disposition: Xfer Short-Term Hosp Clinical Impression: Post-renal acute renal failure, Acute urinary retention Hematuria Qualifiers: Hematuria type: gross Qualified Code(s): R31.0 - Gross hematuria Acute renal failure Qualifiers: Acute renal failure type: unspecified Qualified Code(s): N17.9 - Acute kidney failure, unspecified Condition: Stable Referrals: Omega Woods MD [Primary Care Provider, [facility]] Print Language: Spanish Coding Level of Care Code ED End Touching Machine Operator for Chg Fwd Documented by User: Arun Dale DO 07/27/25 02:43 HPI - Female Genitourinary 2 General: Chief complaint: Urogenital-Female Stated complaint: Having blood in Urine Time Seen by Provider: 07/26/25 19:36 Related Data Home Medications ?Medication ?Instructions ?Recorded ?Confirmed dorzolamide 2 % eye drops 1 drp ophthalmic (eye) TID 0 05/29/21 07/12/25 latanoprost 0.005 % eye drops 1 drp ophthalmic (eye) D AILY 05/29/21 07/12/25 magnesium oxide 500 mg capsule 500 mg PO DAILY 1 07/12/25 vitamin B complex (B 1 tab PO DAILY 05/29/2106/30 Complex-Vitamin B12 tablet) acetaminophen 325 mg capsule 650 mg PO QID PRN Pain 07/12/25 (Tylenol) triamcinolone acetonide 0.1 % 1 applic topical DAILY P RN 08/11/24 07/12/25 topical cream Previous Rx's ?Medication ?Instructions ?Recorded nitroglycerin 0.4 mg sublingual 0.4 mg sublingual Q5M PRN chest 12/06/19 tablet (Nitrostat) pain #1 pkg hydrocortisone 1 % topical cream 1 applic topical BID PRN skin 06/13/24 (Anti-Itch (hydrocortisone)) irritation #28.35 grams furosemide 40 mg tablet 40 mg PO DAILY #30 tabs 06/30 12/21 nystatin 100,000 unit/gram topical 1 applic topical BI D #30 grams 08/02/24 cream ferrous sulfate 325 mg (65 mg 325 mg PO BID #60 tabs 0 10/24/24 iron) tablet fluconazole 150 mg tablet 150 mg PO .Weekly 4 weeks #4 tabs 10/24/24 nitrofurantoin macrocrystal 50 mg 50 mg PO DAILY UTI p rophylaxis #30 11/23/24 capsule caps celecoxib 100 mg capsule See Rx Instructions .Route 0 12/06/24 .COMPLEX #180 caps metoprolol tartrate 50 mg tablet See Rx Instructions . Route 12/06/24 .COMPLEX #180 tabs isosorbide mononitrate 30 mg See Rx Instructions .Rout e 01/03/25 tablet,extended release 24 hr .COMPLEX #200 tabs levothyroxine 50 mcg tablet See Rx Instructions .Route 01/15/25 .COMPLEX #90 tabs losartan 100 mg tablet See Rx Instructions .Route 0 01/15/25 .COMPLEX #100 tabs spironolactone 25 mg tablet 25 mg PO DAILY #30 tabs cholecalciferol (vitamin D3) 25 75 mcg (3 x 25 mcg (1, 000 unit)) 02/12/25 mcg (1,000 unit) tablet PO DAILY #90 tabs tramadol 50 mg tablet 50 mg PO BID PRN pain #30 ta bs 03/13/25 gabapentin 100 mg capsule See Rx Instructions .Route 0 03/15/25 .COMPLEX #90 caps amlodipine 5 mg tablet 5 mg PO DAILY Elevated BP #9 0 tabs 05/14/25 ropinirole 0.5 mg tablet 0.5 mg PO BID PRN restless l eg(s) 05/17/25 #180 tabs omeprazole 40 mg capsule,delayed 40 mg PO DAILY PRN he artburn #90 06/06/25 release caps ciprofloxacin HCl 500 mg tablet 500 mg PO BID 7 days # 14 tabs 07/18/25 Allergies Allergy/AdvReac Type Severity Reaction Status Date / Time Penicillins Allergy Unknown Unknown Verified 07/26/25 19:46 sulfamethoxazole (From Allergy ALGY-Rash Verified 07/26/25 19:46 Sulfamethoxazole-Trimethoprim) trimethoprim (From Allergy ALGY-Rash Verified 07/26/25 19:46 Sulfamethoxazole-Trimethoprim) PFSH ED 2 PFSH: Medical History PVC (premature ventricular contraction) Hypotension Hypothyroid CAD (coronary artery disease) Shortness of breath Chest pain HTN (hypertension) Surgical History S/P cataract extraction History of left knee replacement 03/2024 Hx of eye surgery stent placement History of partial hysterectomy Vaginal History of cholecystectomy History of bladder repair surgery Bladder repair in 2000, sling in 2002 Hx of dilation and curettage Family History Mother Pleural effusion Family/Other Heart problem Other Hx of CABG Social History Smoking and tobacco/nicotine status: never used tobacco/nicotine Alcohol intake: never Substance/Drug Use: never Course 2 Vital Signs: Vital signs: Vital Signs Temperature 98.5 F 07/26/25 19:39 Pulse Rate 79 07/27/25 00:30 Respiratory Rate 18 07/26/25 19:39 Blood Pressure 175/103 07/27/25 00:30 Pulse Oximetry 96 07/27/25 00:30 Oxygen Delivery Me thod Room Air 07/26/25 20:44 MDM - Female Medical Decision Making Patient is a nice 80-year-old female here with family for concern of hematuria that started today. 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 She states she is scheduled to see oncology in [place] on August 08. Patient is not complaining of any pain upon arrival today. Urine with gross hematuria clinically. She was found to have a postvoid residual volume of over 400 cc indicating acute urinary retention. Blood work showing a normal white count. Hemoglobin at 9.6. I did discuss with [facility] as she was just released there a few weeks ago and hemoglobin was 7.2 at time of discharge. Chemistry showing acute on chronic hyponatremia at 127. She was found to be in acute renal failure with a BUN/Cr 26/4.8. Again discussed with Mar who stated her creatinine at time of discharge just a few weeks ago was 0.8. UA with gross hematuria here along with evidence for infection with 2+ leuks and 51-100 WBCs although she has had similar urines previously with normal cultures. Will go ahead and culture today and give 1g Rocephin. CT scan to rule out obstructive uropathy from stones/tumor/etc. This overall was unremarkable. No identified cause of her hematuria. Suspicion is a bladder lesion. We do not have any urology coverage for treatment of her bladder hemorrhage causing urinary retention and subsequent renal failure. We will attempt to irrigate bladder here and place womack. Patient would like to be transferred back to [facility] which I feel is appropriate. Case discussed with Dr. Dale. I have spoken to [facility] hospitalist-Dr. Olivas who is accepting transfer. Patient/family wanting to go by POV which I think is reasonable. She is stable enough for this. Chart reviewed and patient discussed with midlevel. Agree with assessment and plan. Lab Data 07/26/25 19:54 07/26/25 19:54 Radiology Impressions Abdomen/Pelvis CT 07/26/25 20:41 IMPRESSION: 1. No hydronephrosis or urolithiasis. Mild urinary bladder distension without additional findings to suggest cystitis. No identified cause of hematuria. 2. Prior colectomy with removal of the ascending colon, transverse colon, and descending colon. High density material throughout the residual colon, with multiple high density diverticula. Retained contrast is favored over gastrointestinal hemorrhage. 3. Right lower quadrant ileostomy without complication. Nonobstructive bowel gas pattern. 4. Numerous scattered small nodules throughout the peripheral mesentery, [id number], largest nodule found within the left lower quadrant measuring 12 mm, consistent with omental implants given the provided clinical history. 5. Nodular hepatic contour suggesting cirrhosis. No identified focal lesion. 6. Mild splenomegaly. Laboratory Results WBC 7.05 10^3/uL (3.29-11.43) 07/26/25 19:54 RBC 3.39 10^6/uL (3.85-5.65) L 07/26/25 19:54 Hgb 9.60 g/dL (11.27-16.99) L 07/26/25 19:54 Hct 29.8 % (36-47) L 07/26/25 19:54 MCV 87.9 fl (85-98) 07/26/25 19:54 MCH 28.3 pg (27-33) 07/26/25 19:54 MCHC 32.2 g/dL (30-55) 07/26/25 19:54 RDW 13.9 % (12.1-15.1) 07/26/25 19:54 Plt Count 168 10^3/cmm (157-399) 07/26/25 19:54 MPV 9.4 fL (7.4-10.4) 07/26/25 19:54 Neut % (Auto) 41.4 % 07/26/25 19:54 Lymph % (Auto) 38.4 % 07/26/25 19:54 [place] % (Auto) 13.6 % 07/26/25 19:54 Eos % (Auto) 5.7 % 07/26/25 19:54 Baso % (Auto) 0.3 % 07/26/25 19:54 Neut # (Auto) 2.92 10^3/uL (1.8-7.7) 07/26/25 19:54 Lymph # (Auto) 2.7 10^3/uL (0.8-4.8) 07/26/25 19:54 [place] # (Auto) 1.0 10^3/uL (0.2-0.9) H 07/26/25 19:54 Eos # (Auto) 0.4 10^3/uL (0.0-0.8) 07/26/25 19:54 Baso # (Auto) 0.0 10^3/uL (0.0-0.1) 07/26/25 19:54 Nucleated RBC % (auto) 0 % 07/26/25 19:54 Nucleated RBCs # 0.0 /100WBC 07/26/25 19:54 Sodium 127 mmol/L (136-145) L 07/26/25 19:54 Potassium 5.1 mmol/L (3.5-5.1) 07/26/25 19:54 Chloride 91 mmol/L (98-107) L 07/26/25 19:54 Carbon Dioxide 22 mmol/L (22-29) 07/26/25 19:54 Anion Gap 19.1 (5-19) H 07/26/25 19:54 BUN 26 mg/dL (8-23) H 07/26/25 19:54 Creatinine 4.8 mg/dL (0.5-0.9) H 07/26/25 19:54 GFR Calculation Not Reportable 07/26/25 19:54 Glucose 114 mg/dL (65-115) 07/26/25 19:54 Calculated Osmolality 270 mOsm/kg (285-295) L 07/26/25 19:54 Calcium 10.0 mg/dL (8.5-10.5) 07/26/25 19:54 Total Bilirubin 0.5 mg/dL (0.15-1.2) 07/26/25 19:54 AST 24 U/L (0-32) 07/26/25 19:54 ALT 9 U/L (0-33) 07/26/25 19:54 Alkaline Phosphatase 69 U/L (35-105) 07/26/25 19:54 Total Protein 7.0 g/dL (6.6-8.7) 07/26/25 19:54 Albumin 3.8 g/dL (3.5-5.2) 07/26/25 19:54 Globulin 3.2 g/dL (1.3-4.6) 07/26/25 19:54 Urine Color Red (Yellow) A 07/26/25 19:42 Urine Appearance Turbid (CLEAR) A 07/26/25 19:42 Urine pH 6.5 (5-7) 07/26/25 19:42 Ur Specific [place] 1.009 (1.005-1.030) 07/26/25 19:42 Urine Protein 2+ (Negative) A 07/26/25 19:42 Urine Glucose (UA) Negative (Normal) 07/26/25 19:42 Urine Ketones Negative (Negative) 07/26/25 19:42 Urine Blood 3+ (Negative) A 07/26/25 19:42 Urine Nitrate Negative (Negative) 07/26/25 19:42 Urine Bilirubin 2+ (Negative) H 07/26/25 19:42 Urine Urobilinogen 0.2 mg/dL (Negative) 07/26/25 19:42 Ur Leukocyte Esterase 2+ (Negative) A 07/26/25 19:42 Urine RBC >100 /hpf (0-2) H 07/26/25 19:42 Urine WBC 51-100 /hpf (0-5) H 07/26/25 19:42 Ur Squamous Epith Cells 6-10 /hpf (0-5) 07/26/25 19:42 Amorphous Sediment Not Reportable 07/26/25 19:42 Urine Bacteria None seen /hpf (NONE) 07/26/25 19:42 Hyaline Casts 0.84 /lpf 07/26/25 19:42 Discharge Plan Discharge Patient Disposition: Xfer Short-Term Hosp Clinical Impression: Post-renal acute renal failure, Acute urinary retention Hematuria Qualifiers: Hematuria type: gross Qualified Code(s): R31.0 - Gross hematuria Acute renal failure Qualifiers: Acute renal failure type: unspecified Qualified Code(s): N17.9 - Acute kidney failure, unspecified Condition: Stable Referrals: Omega Woods MD [Primary Care Provider, [facility]] Print Language: Spanish Coding Level of Care Code ED End Touching Machine Operator for [facility]
[2025-07-26 19:53] LABS: Glucose Urine UA Negative (Normal); Nitrate Urine Negative (Negative); Specific Gravity, Urine 1.009 (1.005-1.030)
[2025-07-26 19:58] LABS: Add Urine Microscopic? YES
[2025-07-26 20:01] LABS: Hematocrit 29.8 % (36-47); Hemoglobin 9.60 g/dL (11.27-16.99); Mean Corpuscular HGB Conc 32.2 g/dL (30-55); Mean Corpuscular Hemoglobin 28.3 pg (27-33); Mean Corpuscular Volume 87.9 fl (85-98); Nucleated Red Blood Cells % 0 %; Platelet Count 168 10^3/cmm (157-399); Red Blood Count 3.39 10^6/uL (3.85-5.65); White Blood Count 7.05 10^3/uL (3.29-11.43)
[2025-07-26 20:18] LABS: UA Slide Review UA Slide Review Perf
[2025-07-26 20:20] LABS: Alanine Aminotransferase 9 U/L (0-33); Albumin Level 3.8 g/dL (3.5-5.2); Alkaline Phosphatase 69 U/L (35-105); Anion Gap 19.1 (5-19); Aspartate Amino Transferase 24 U/L (0-32); Blood Urea Nitrogen 26 mg/dL (8-23); Calcium 10.0 mg/dL (8.5-10.5); Carbon Dioxide 22 mmol/L (22-29); Chloride 91 mmol/L (98-107); Globulin 3.2 g/dL (1.3-4.6); Glucose 114 mg/dL (65-115); Osmolality Calculated 270 mOsm/kg (285-295); Potassium 5.1 mmol/L (3.5-5.1); Sodium 127 mmol/L (136-145); Total Protein 7.0 g/dL (6.6-8.7)
--- NOTE | 2025-07-26 20:41 | CTR_ITS ---
PROCEDURE INFORMATION: Exam: CT Abdomen And Pelvis Without Contrast Exam date and time: 07/26/2025 8:59 PM Age: 80 years old Clinical indication: Other: Hematuria, acute renal failure, HX colectomy with recent diagnosis of cancer with mets; Prior surgery; Surgery date: 6+ months; Surgery type: Colon TECHNIQUE: Imaging protocol: Computed tomography of the abdomen and pelvis without contrast. Radiation optimization: All CT scans at this facility use at least one of these dose optimization techniques: automated exposure control; mA and/or kV adjustment per patient size (includes targeted exams where dose is matched to clinical indication); or iterative reconstruction. COMPARISON: CT abdomen pelvis w con* [id number] 10/31/2019 3:10 PM RADIATION DOSE METRICS: Total DLP (mGy-cm): 554.43 FINDINGS: Lungs: Mild bilateral lower lung atelectasis/scarring. Heart: Heart normal in size. Severe, partially imaged calcified coronary artery atherosclerosis. No pericardial effusion. Liver: Liver measuring 10.7 cm in the craniocaudal dimension with nodular contour. No identified focal lesion. Scattered small hepatic calcifications, suggesting prior granulomatous disease. Gallbladder and biliary ducts: Gallbladder surgically absent. Pancreas: Normal. No ductal dilation. Spleen: Spleen measuring 14.1 cm long axis. Multiple small calcifications throughout the spleen, suggesting prior granulomatous disease. Adrenal glands: Normal. No mass. Kidneys and ureters: Normal. No hydronephrosis. Stomach and bowel: Prior colectomy with removal of the ascending colon, transverse colon, and descending colon. High density material throughout the residual colon, with multiple high density diverticula. Anastomotic suture plane at the origin of the sigmoid colon. Right lower quadrant ileostomy. Small bowel normal in caliber, without identified transition point or obstruction. Appendix: No evidence of appendicitis. Intraperitoneal space: Numerous scattered small nodules throughout the peripheral mesentery, [id number], largest nodule found within the left lower quadrant measuring 12 mm. Vasculature: Moderate atherosclerotic calcification of the aorta and major branch vessels without aneurysm. Lymph nodes: Unremarkable. No enlarged lymph nodes. Urinary bladder: Mild urinary bladder distension. No significant focal wall thickening. No adjacent inflammation. Reproductive: Uterus surgically absent. Bones/joints: Severe thoracolumbar spondylosis. No identified acute osseous abnormality. Soft tissues: Unremarkable. CT/CT kidney stone [id number] IMPRESSION: 1. No hydronephrosis or urolithiasis. Mild urinary bladder distension without additional findings to suggest cystitis. No identified cause of hematuria. 2. Prior colectomy with removal of the ascending colon, transverse colon, and descending colon. High density material throughout the residual colon, with multiple high density diverticula. Retained contrast is favored over gastrointestinal hemorrhage. 3. Right lower quadrant ileostomy without complication. Nonobstructive bowel gas pattern. 4. Numerous scattered small nodules throughout the peripheral mesentery, [id number], largest nodule found within the left lower quadrant measuring 12 mm, consistent with omental implants given the provided clinical history. 5. Nodular hepatic contour suggesting cirrhosis. No identified focal lesion. 6. Mild splenomegaly.
[2025-07-27] VITALS: BP 175/72; PULSE 80; O2SAT 95
--- NOTE | 2025-07-27 00:06 | PC.NURSE ---
DELAY WITH ABX DUE TO LAB NEEDING TO DRAW BLOOD CULTURES. LAB AT BEDSIDE @0005.
[2025-07-27] MEDS: cefTRIAXone 1,000 mg SDV 1000 MG IVP (00:11)
[2025-07-27 00:30] VITALS: BP 175/103; PULSE 79; O2SAT 96
[2025-07-27 01:00] VITALS: PULSE 77; O2SAT 95
[2025-07-27 01:30] VITALS: BP 151/57; PULSE 79; O2SAT 94
[2025-07-27 04:07] VITALS: BP 151/57; PULSE 79; O2SAT 94
== END 2025-07-27 01:00 | disposition short-term general hospital (02) ==
PROVIDERS: Emergency Provider Physician Assistant; PCP Family Medicine
DX: R31.0 Gross hematuria (principal); R33.8 Other retention of urine; N17.9 Acute kidney failure, unspecified; I25.10 Atherosclerotic heart disease of native coronary artery without angina pectoris; I10 Essential (primary) hypertension
CPT/HCPCS: 36415; 51702; 51798; 74176; 80053; 81001; 85025; 87040; 87086; 96361; 96374; 99285; J0696; J7030; J9999

== ENCOUNTER → 2025-08-02 12:49 | Outpatient (BNVA) | payer MEDICARE, SELFPAY | PROVIDERS: PCP Family Medicine; Visit Provider Family Medicine | DX: Z51.81 Encounter for therapeutic drug level monitoring (principal); N18.9 Chronic kidney disease, unspecified | CPT/HCPCS: 80048; 85025 ==

== ENCOUNTER 2025-08-14 07:57 | Oncology outpatient (recurring) (ONCR) | payer MEDICARE, SELFPAY ==
[2025-08-14 09:17] LABS: Hematocrit 30.6 % (36-47); Hemoglobin 9.70 g/dL (11.27-16.99); Mean Corpuscular HGB Conc 31.7 g/dL (30-55); Mean Corpuscular Hemoglobin 28.3 pg (27-33); Mean Corpuscular Volume 89.2 fl (85-98); Nucleated Red Blood Cells % 0 %; Platelet Count 200 10^3/cmm (157-399); Red Blood Count 3.43 10^6/uL (3.85-5.65); White Blood Count 7.43 10^3/uL (3.29-11.43)
[2025-08-14 09:45] LABS: Alanine Aminotransferase 7 U/L (0-33); Albumin Level 4.0 g/dL (3.5-5.2); Alkaline Phosphatase 66 U/L (35-105); Anion Gap 17.9 (5-19); Aspartate Amino Transferase 19 U/L (0-32); Blood Urea Nitrogen 10 mg/dL (8-23); CA 125 87.2 U/mL (0-35); Calcium 9.7 mg/dL (8.5-10.5); Carbon Dioxide 21 mmol/L (22-29); Chloride 101 mmol/L (98-107); Globulin 3.4 g/dL (1.3-4.6); Glucose 103 mg/dL (65-115); Osmolality Calculated 281 mOsm/kg (285-295); Potassium 3.9 mmol/L (3.5-5.1); Sodium 136 mmol/L (136-145); Total Protein 7.4 g/dL (6.6-8.7)
[2025-08-14 10:26] LABS: Carcinoembryonic Antigen 3.6 ng/mL (0.0-4.7)
== END 2025-08-29 23:59 | disposition home or self-care (01) ==
LOC: ONCMED 07:58
PROVIDERS: Internal Medicine Medical Oncology; PCP Family Medicine; Visit Provider Family Medicine
DX: C18.9 Malignant neoplasm of colon, unspecified (principal); R97.8 Other abnormal tumor markers; Z95.828 Presence of other vascular implants and grafts
CPT/HCPCS: 80053; 82378; 85025; 86304; 99205